=== PATIENT | male | born 1955 | race Caucasian/White ===

== ENCOUNTER → 2017-12-03 11:45 | Outpatient (CLI) | payer OTHER, SELFPAY ==
--- NOTE | 2017-12-03 11:49 | RAD_ITS ---
STUDY: X-RAY CHEST REASON FOR EXAM: Male, 62 years old. Dyspnea. One-week history of bone difficulty breathing. TECHNIQUE: PA and lateral views of the chest. COMPARISON: Comparison is made with prior study dated April 15, 2016. FINDINGS: Hyperinflation. There was evidence of a focal lingular infiltrate. Follow-up is recommended. There is no demonstrated pleural abnormality. Normal size heart. Normal mediastinum and ofelia. Normal visualized pulmonary arteries. Normal visualized aortic arch and descending thoracic aorta. There are degenerative changes of the visualized thoracic spine. Normal visualized ribs, clavicles, and shoulders. There is no demonstrated abnormality of the visualized soft tissue structures of the upper abdomen. RAD/Chest PA and Lateral IMPRESSION: Focal lingular infiltrate. Electronically Signed: Thomas Barrow MD at 12:12 EDT Tel [phone], Service support ,
== END ==
PROVIDERS: Family Provider Family Medicine; PCP Family Medicine; Visit Provider Family Medicine
DX: R91.8 Other nonspecific abnormal finding of lung field (principal); R06.02 Shortness of breath
CPT/HCPCS: 71046

== ENCOUNTER → 2018-02-04 14:26 | Outpatient (CLI) | payer OTHER, SELFPAY ==
--- NOTE | 2018-02-04 14:39 | BD_ITS ---
STUDY: DUAL ENERGY X-RAY ABSORPTIOMETRY / DXA REASON FOR EXAM: Male, 62 years old. History of myelodysplastic syndrome. Post bone marrow transplant. Steroid use. Loss of height. TECHNIQUE: Bone Mineral Density (BMD) measurements of lumbar spine and bilateral hips were obtained. COMPARISON: None. FINDINGS: Lumbar Spine (L1-L4): g/cm2 (1.400) / T-score (1.6) / Z-score (2.0) Findings are suggestive of normal bone density with a low fracture risk. Left Femur Total: g/cm2 (0.858) / T-score (-1.7) / Z-score (-1.2) Left Femoral Neck: g/cm2 (0.875) / T-score (-1.5) / Z-score (-0.5) Right Femur Total: g/cm2 (0.966) / T-score (-0.9) / Z-score (-0.4) Right Femoral Neck: g/cm2 (0.956) / T-score (-0.9) / Z-score (0.1) BD/Dexa Bone Density Study IMPRESSION: The patient is considered osteopenic as outlined below according to World Tomasz Organization (WHO) criteria with a moderate fracture risk. Reference Information: The T-score is the number of standard deviations above or below the standard which is normal for young adults at their peak bone mineral density. The World Health Organization (WHO) interprets the T-scores as follows: Above -1 Normal bone density Between -1 and -2.5 Osteopenia Equal to / or below -2.5 Osteoporosis As a practical clinical guideline, osteopenia may be graded as follows: Mild -1 through -1.5 Moderate -1.6 through -2.0 Severe -2.1 through -2.4 The Z-score is the number of standard deviations above or below age-matched controls. A Z-score of less than -1.5 would be considered abnormal. References: 1. NIH Osteoporosis and Related Bone Diseases http://www.osteo.org 2. International Society for Clinical Densitometry http://www.iscd.org 3. National Osteoporosis Foundation http://www.nof.org Electronically Signed: Thomas Barrow MD at 14:31 EDT Tel [phone], Service support ,
== END ==
PROVIDERS: Family Provider Family Medicine; PCP Family Medicine
DX: Z13.820 Encounter for screening for osteoporosis (principal); D46.9 Myelodysplastic syndrome, unspecified; R29.890 Loss of height; Z79.52 Long term (current) use of systemic steroids
CPT/HCPCS: 77080

== ENCOUNTER 2018-02-11 08:45 | Outpatient (RCR) | payer OTHER, SELFPAY ==
[2018-01-28 15:11] LABS: AST(SGOT) 18 U/L (15-37); Alanine Aminotransfer ALT/SGPT 39 U/L (16-61); Albumin, Serum 3.3 g/dL (3.2-5.0); Alkaline Phosphatase 74 U/L (45-117); Anion Gap 10 (5-15); BUN 33 mg/dL (7-18); BUN/Creat Ratio 26.4 RATIO (10-20); Bilirubin, Direct 0.09 mg/dL (0.00-0.30); Calcium,Total 8.8 mg/dL (8.5-10.1); Chloride 106 mmol/L (98-107); Creatinine, Serum 1.25 mg/dL (0.70-1.30); EST Glomerular Filtration Rate 62 mL/min (>60); Est Glom Filt Rate - Afr Amer 75 mL/min (>60); Globulin 2.4 g/dL (2.2-4.2); Glucose 190 mg/dL (74-106); Potassium 4.9 mmol/L (3.5-5.1); Protein, Total 5.7 g/dL (6.4-8.2); Sodium Level 139 mmol/L (136-145)
[2018-01-28 15:15] LABS: Absolute Neutrophil Count 5.3 X10^3/uL (2.0-7.7); Basophil# 0.01 X10^3/uL; Basophil% 0.2 % (0-1); Eosinophil# 0.01 X10^3/uL; Eosinophils% 0.2 % (0-5); Hematocrit 34.4 % (40-54); Hemoglobin 11.3 g/dl (13.0-16.5); Lymphocyte % 8.1 % (19-41); Mean Corp Hgb Conc 32.8 g/gl (32-36); Mean Corpuscular Hgb 33.6 pg (27.0-32.0); Mean Corpuscular Volume 102.4 fL (80-94); Monocyte# 0.36 X10^3/uL; Monocyte% 5.8 % (0-10); Neutrophil # 5.28 X10^3/uL (2.7-7.7); Neutrophil % 85.1 % (47-70); Platelet Count 61 K/mm3 (150-450); RBC Distribution Width CV 20.9 % (11.6-14.6); RBC Distribution Width SD 76.2 fl (35.1-43.9); Red Blood Count 3.36 M/mm3 (4.6-6.2); White Blood Count 6.2 K/mm3 (4.4-11.0)
[2018-01-28 15:16] LABS: Differential Indicated SCAN CRITERIA MET; POSITIVE COUNT NO; POSITIVE DIFFERENTIAL YES; POSITIVE MORPHOLOGY YES
[2018-01-28 16:03] LABS: Anisocytosis 2+; Macrocytosis 2+; Platelet Estimate MOD DEC (ADEQ); Toxic Granulation RARE
[2018-01-31 08:50] LABS: Tacrolimus (FK506) 4.5 ng/mL (2.0-20.0)
[2018-02-04 09:58] LABS: AST(SGOT) 15 U/L (15-37); Alanine Aminotransfer ALT/SGPT 28 U/L (16-61); Albumin, Serum 3.1 g/dL (3.2-5.0); Alkaline Phosphatase 60 U/L (45-117); Anion Gap 9 (5-15); BUN 23 mg/dL (7-18); BUN/Creat Ratio 20.2 RATIO (10-20); Bilirubin, Direct 0.12 mg/dL (0.00-0.30); Calcium,Total 8.5 mg/dL (8.5-10.1); Chloride 108 mmol/L (98-107); Creatinine, Serum 1.14 mg/dL (0.70-1.30); EST Glomerular Filtration Rate 69 mL/min (>60); Est Glom Filt Rate - Afr Amer 84 mL/min (>60); Globulin 2.1 g/dL (2.2-4.2); Glucose 166 mg/dL (74-106); Magnesium 1.7 mg/dL (1.6-2.6); Potassium 4.2 mmol/L (3.5-5.1); Protein, Total 5.2 g/dL (6.4-8.2); Sodium Level 141 mmol/L (136-145)
[2018-02-04 10:00] LABS: Absolute Lymphocyte Count 1.01 X10^3/ul (0.83-4.51); Absolute Neutrophil Count 6.8 X10^3/uL (2.0-7.7); Eosinophil# 0.05 X10^3/uL; Eosinophils% 0.6 % (0-5); Hematocrit 34.4 % (40-54); Hemoglobin 11.2 g/dl (13.0-16.5); Lymphocyte # 1.01 X10^3/ul (4.0); Lymphocyte % 12.2 % (19-41); Mean Corp Hgb Conc 32.6 g/gl (32-36); Mean Corpuscular Hgb 34.1 pg (27.0-32.0); Mean Corpuscular Volume 104.9 fL (80-94); Mean Platelet Vol. 9.4 fl (6.2-12.0); Monocyte# 0.47 X10^3/uL; Monocyte% 5.7 % (0-10); Neutrophil # 6.75 X10^3/uL (2.7-7.7); Neutrophil % 81.3 % (47-70); Platelet Count 62 K/mm3 (150-450); RBC Distribution Width CV 22.2 % (11.6-14.6); RBC Distribution Width SD 82.3 fl (35.1-43.9); Red Blood Count 3.28 M/mm3 (4.6-6.2); White Blood Count 8.3 K/mm3 (4.4-11.0)
[2018-02-04 10:02] LABS: Differential Indicated SCAN CRITERIA MET; POSITIVE COUNT NO; POSITIVE DIFFERENTIAL NO; POSITIVE MORPHOLOGY YES
[2018-02-07 13:23] LABS: Tacrolimus (FK506) 4.1 ng/mL (2.0-20.0)
[2018-02-11 09:05] LABS: Absolute Lymphocyte Count 1.04 X10^3/ul (0.83-4.51); Absolute Neutrophil Count 4.4 X10^3/uL (2.0-7.7); Eosinophil# 0.07 X10^3/uL; Eosinophils% 1.2 % (0-5); Hematocrit 34.1 % (40-54); Hemoglobin 11.2 g/dl (13.0-16.5); Lymphocyte # 1.04 X10^3/ul (4.0); Lymphocyte % 17.7 % (19-41); Mean Corp Hgb Conc 32.8 g/gl (32-36); Mean Corpuscular Hgb 34.8 pg (27.0-32.0); Mean Corpuscular Volume 105.9 fL (80-94); Mean Platelet Vol. 9.3 fl (6.2-12.0); Monocyte# 0.38 X10^3/uL; Monocyte% 6.5 % (0-10); Neutrophil # 4.35 X10^3/uL (2.7-7.7); Neutrophil % 74.3 % (47-70); Platelet Count 98 K/mm3 (150-450); RBC Distribution Width CV 21.6 % (11.6-14.6); RBC Distribution Width SD 82.4 fl (35.1-43.9); Red Blood Count 3.22 M/mm3 (4.6-6.2); White Blood Count 5.9 K/mm3 (4.4-11.0)
[2018-02-11 09:07] LABS: Differential Indicated SCAN CRITERIA MET; POSITIVE COUNT NO; POSITIVE DIFFERENTIAL NO; POSITIVE MORPHOLOGY YES
[2018-02-11 09:17] LABS: AST(SGOT) 14 U/L (15-37); Alanine Aminotransfer ALT/SGPT 27 U/L (16-61); Albumin, Serum 3.1 g/dL (3.2-5.0); Alkaline Phosphatase 58 U/L (45-117); Anion Gap 9 (5-15); BUN 24 mg/dL (7-18); BUN/Creat Ratio 18.5 RATIO (10-20); Bilirubin, Direct 0.08 mg/dL (0.00-0.30); Calcium,Total 8.8 mg/dL (8.5-10.1); Chloride 108 mmol/L (98-107); EST Glomerular Filtration Rate 60 mL/min (>60); Est Glom Filt Rate - Afr Amer 72 mL/min (>60); Globulin 2.6 g/dL (2.2-4.2); Glucose 138 mg/dL (74-106); Magnesium 1.7 mg/dL (1.6-2.6); Potassium 4.1 mmol/L (3.5-5.1); Protein, Total 5.7 g/dL (6.4-8.2); Sodium Level 142 mmol/L (136-145)
[2018-02-14 08:11] LABS: Tacrolimus (FK506) 5.2 ng/mL (2.0-20.0)
== END 2018-02-16 23:59 ==
LOC: PAVLAB 08:45
PROVIDERS: Family Provider Family Medicine; PCP Family Medicine
DX: Z94.81 Bone marrow transplant status (principal)
CPT/HCPCS: 36415; 80048; 80076; 80197; 83735; 85025

== ENCOUNTER 2018-02-22 18:26 | Inpatient (IN) | payer OTHER, SELFPAY ==
[2018-02-22] VITALS (8 sets, daily range): BP systolic 98–132; BP diastolic 64–87; PULSE 96–114; RESP 16–24; TEMP 37.3–39.1; O2SAT 93–97; BMI 25.6; BMI 25.4
--- NOTE | 2018-02-22 18:57 | RAD_ITS ---
STUDY: X-RAY CHEST REASON FOR EXAM: Male, 62 years old. Shortness of breath, fever TECHNIQUE: Frontal and lateral views of the chest were obtained. COMPARISON: December 03, 2017 FINDINGS: The lungs are adequately aerated. There are asymmetric patchy opacities in the left lung base. There is no demonstrated pleural abnormality. The cardiac silhouette is normal in size. The mediastinum and hilar regions are unremarkable. Normal visualized pulmonary arteries. Normal visualized aortic arch and descending thoracic aorta. There are diffuse degenerative changes of the visualized spine. There is AC joint separation on the right. There is probable prior surgical excision of the distal left clavicle. There is no demonstrated abnormality of the visualized upper abdomen. RAD/Chest PA and Lateral IMPRESSION: Focal consolidation cannot be excluded in the left lung base. There is no pleural effusion. Electronically Signed: Marisol Liu MD at 19:56 EDT Tel Direct: [phone], Service support ,
--- NOTE | 2018-02-22 18:57 | EKG12_ITS ---
Test Reason : FEVER Blood Pressure : / mmHG Vent. Rate : 105 BPM Atrial Rate : 105 BPM P-R Int : 134 ms QRS Dur : 084 ms QT Int : 318 ms P-R-T Axes : 054 -43 032 degrees QTc Int : 420 ms Sinus tachycardia Left axis deviation Abnormal ECG Confirmed by RAMONA SWEET, MARIA ([id number]), supervising film or videotape editor STORMY RIZZO ([id number]) on 02/24/2018 3:10:55 PM Referred By: IVDHYA Confirmed By:MARIA GREENE MD
[2018-02-22 19:30] LABS: International Normalized Ratio 1.1; Partial Thromboplast Time 26.7 Seconds (24.1-36.2); Prothrombin Time (Protime)PT. 13.9 SECONDS (11.7-14.9)
[2018-02-22 19:38] LABS: Absolute Lymphocyte Count 0.99 X10^3/ul (0.83-4.51); Absolute Neutrophil Count 4.7 X10^3/uL (2.0-7.7); Differential Indicated SCAN CRITERIA MET; Eosinophil# 0.01 X10^3/uL; Eosinophils% 0.2 % (0-5); Hematocrit 34.5 % (40-54); Hemoglobin 11.5 g/dl (13.0-16.5); Lymphocyte # 0.99 X10^3/ul (4.0); Lymphocyte % 16.8 % (19-41); Mean Corp Hgb Conc 33.3 g/gl (32-36); Mean Corpuscular Hgb 35.3 pg (27.0-32.0); Mean Corpuscular Volume 105.8 fL (80-94); Monocyte# 0.24 X10^3/uL; Monocyte% 4.1 % (0-10); Neutrophil # 4.66 X10^3/uL (2.7-7.7); Neutrophil % 78.9 % (47-70); POSITIVE COUNT NO; POSITIVE DIFFERENTIAL NO; POSITIVE MORPHOLOGY YES; Platelet Count 110 K/mm3 (150-450); RBC Distribution Width CV 20.2 % (11.6-14.6); RBC Distribution Width SD 76.8 fl (35.1-43.9); Red Blood Count 3.26 M/mm3 (4.6-6.2); White Blood Count 5.9 K/mm3 (4.4-11.0)
[2018-02-22 19:44] LABS: BUN 22 mg/dL (7-18); Creatinine, Serum 1.27 mg/dL (0.70-1.30); Estimated Creatinine Clearance 69.03 ml/min; Glucose 116 mg/dL (74-106)
[2018-02-22 19:45] LABS: ALB/GLOB Ratio 1.4 RATIO (0.9-2.4); AST(SGOT) 19 U/L (15-37); Alanine Aminotransfer ALT/SGPT 25 U/L (16-61); Albumin, Serum 3.5 g/dL (3.2-5.0); Alkaline Phosphatase 55 U/L (45-117); Anion Gap 8 (5-15); BUN/Creat Ratio 17.3 RATIO (10-20); Calcium,Total 8.7 mg/dL (8.5-10.1); Chloride 103 mmol/L (98-107); EST Glomerular Filtration Rate 61 mL/min (>60); Est Glom Filt Rate - Afr Amer 74 mL/min (>60); Globulin 2.5 g/dL (2.2-4.2); Potassium 4.2 mmol/L (3.5-5.1); Sodium Level 137 mmol/L (136-145)
[2018-02-22 19:46] LABS: Lactic Acid 1.2 mmol/L (0.4-2.0)
[2018-02-22 20:25] LABS: Differential Comment SCANNED
[2018-02-22 20:31] LABS: Bacteria 0 SEEN /hpf (None Seen); Squamous Epithelial Cells - UA 0 SEEN /hpf (0-5)
[2018-02-22 20:32] LABS: Color, Urine Yellow (Yellow); Glucose, Dipstick Normal (Normal); Ketone-Dipstick Negative (Negative); Leukocyte Esterase-Dipstick 25 /ul (Negative); Nitrite-Dipstick Negative (Negative); Occult Blood-Urine 10 /ul (Negative); Protein-Dipstick 15 mg/dl (Negative); Specific Gravity, Urine 1.015 (1.002-1.030); Urine Bilirubin Dipstick Negative (Negative); Urine Clarity Clear (Clear); Urine Urobilinogen Normal (Normal); Urine pH 6.5 (5.0 - 8.0)
[2018-02-22 20:38] LABS: Mucous, Urine 1+ /hpf (<or=2+); Red Blood Cells-Urine 0-5 SEEN /hpf (0-5); White Blood Cells 0-5 SEEN /hpf (0-5)
[2018-02-22] MEDS: Acetaminophen 325 MG Tablet 650 MG PO (21:08)
[2018-02-22] MEDS: levoFLOXacin IV 750 MG/150 ML BAG 100 MG IV (21:08)
--- NOTE | 2018-02-22 21:11 | ED.DCSUM_ITS ---
- ER Visit Summary Date of Service: 02/22/18 Chief Complaint: Fever and chills History of Present Illness: The patient is a 62 M who is status post bone marrow transplant June 2017 at [facility] presents with cough, fever and shaking chills. Patient states he was diagnosed with idiopathic pneumonia December 09, 2017. He denies headache, visual, ocular auditory symptoms. He does complain of nasal congestion. He denies sore throat. He does report change in voice. He denies chest pain or palpitations. He denies orthostatic symptoms. He does report decreased p.o. intake and decreased urine output. He denies leg pain, swelling discoloration. He denies vomiting or diarrhea. He denies dysuria, frequency, urgency or hematuria. Physical Examination: Vital signs noted. Heart rate 104 respiratory 24 pulse ox 93% on room air and initial temperature was 100.4. Repeat temperature is 102.4?F. Patient has a raspy voice. Pupils equal round reactive paradoxic muscle intact. Mild clear nasal drainage noted. TMs normal. Posterior pharynx reveals midline uvula with no erythema or exudate. Trachea is midline. There is no stridor. Heart is rapid and regular without murmur, gallop or rub. Lungs reveal abnormal breath sounds left lower lobe. There is no wheezing or rhonchi noted on expiration. Abdomen is soft and nontender. There is no CVA tenderness noted. Lower extremity exam reveals no swelling, discoloration or leg vein distention. There is no skin lesions or rash noted. Patient is alert and oriented ?3. Motor is 5 over 5. Sensory is intact. DTRs are symmetric with no clonus or Babinski sign. Cranial 2 through 12 are intact. Cerebellar testing is normal. Test Results: White count is normal with mild anemia. Electronic panel is unremarkable. Two-view chest x-ray interpreted by me and reviewed radiology report reveals possible infiltrate left lower lobe. Lactate was normal at 1.2. Emergency Department Course and Treatment: Since patient is status post bone marrow transplant with respiratory symptoms sepsis workup was undertaken to evaluate for pneumonia. Since lactate is normal he was treated for community acquired pneumonia/sepsis. Treatment Plan: IV antibiotics and further treatment in the hospital Disposition: [facility], 23-hour observation Impression: 1. Community acquired pneumonia, left lower lobe infiltrate 2. Sepsis 3. Status post bone marrow transplant 4. Chronic anemia nonspecified This note was generated with One[employer] dictation software. It may contain incorrect words, spelling, and punctuation that were not noted in review of the chart prior to signing ED Disposition - Plan for ED Patient: Chief Complaint: Fever Referrals: Zaki Sears MD [Primary Care Provider] -
--- NOTE | 2018-02-22 21:33 | PCM.HP.STD ---
Problem List (1) Community acquired pneumonia Status: Acute (2) MDS (myelodysplastic syndrome) Status: Acute History of Present Illness Date of Admission: 02/22/18 Chief Complaint: fever and chills The patient is a 62 year old M with a significant history of MDS status post bone transplant and on antirejection medication who was diagnosed and treated for idiopathic pneumonia at [facility] in November 2017 and on chronic steroid use who presented with a 2-day history of low-grade fever and chills. Associated with symptoms is malaise; lethargy; rhinorrhea and mild sore throat. He denies shortness of breath at rest. As part of his rehabilitation from pneumonia he has a routine of walking to his basement and back. He reports mild dyspnea on exertion when he awoke from his basement and back; but this has not changed. He has a clear nose at discharge. Although his sputum is productive he ends up swallowing the sputum. He takes prednisone 20 mg every other day. The last day he took his prednisone was a day before the admission. Reportedly his steroid taper supposed and on 02/26/2018. He is on daily tacrolimus dose. Because of risk of infection he is on chronic acyclovir, Cresemba and Bactrim. At emergency department patient was noted to have a temperature of 102.4 with tachycardia and tachypnea. Past Medical History Medical History: Medical History (Last Updated 02/22/18 @ 23:19 by Yuan Bear MD) MDS (myelodysplastic syndrome) D46.9 Allergies Penicillins Adverse Reaction (Unknown, Verified 02/22/18 18:27) Other states had blood from bowel after pcn Home Medications: Ambulatory Orders Medication Instructions Recorded Acyclovir 800 mg PO DAILY 02/22/18 Calcium Citrate 950 mg PO BID 02/22/18 Cholecalciferol (Vitamin D3) 2,000 unit PO DAILY 02/22/18 [Vitamin D3] Famotidine 20 mg PO BID 02/22/18 Isavuconazonium Sulfate [Cresemba] 186 mg PO DAILY 02/22/18 Prednisone 20 mg PO QODAY 02/22/18 Sulfamethoxazole/Trimethoprim 1 each PO BID 02/22/18 [Sulfamethoxazole-Tmp Ds Tablet] Tacrolimus [Envarsus Xr] 2 mg PO BID 02/22/18 Surgical History: - - Three left knee surgeries. Lives: Spouse/ Significant Other Smoking Status: Never smoker Alcohol: Occasional - *Family History Maternal Family History: Family History (Last Updated 02/22/18 @ 23:21 by Yuan Bear MD) Father Emphysema lung Sister Cancer Review of Systems Constitutional: Reports: Chills, Fever, Weight Change - Gained about 7 pounds in 5 weeks. HEENT: Reports: Sinus Drainage, Sore Throat. Denies: Dysphasia, Head Aches Cardiovascular: Denies: Chest Pain, Palpitations Respiratory: Reports: Cough, Shortness of breath upon exertion, Sputum production. Denies: Shortness of breath at rest Gastrointestinal: Denies: Abdominal Pain, Nausea, Vomiting Genitourinary: Denies: Dysuria Musculoskeletal: Denies: Joint Pain, Joint Tenderness Skin: Denies: Rash, Wounds Neurological: Denies: Numbness, Tingling, Focal weakness Psychiatric: Denies: Anxiety, Depression, Homicidal Ideations, Suicidal Ideations Hematologic/ Lymphatic: Denies: Easy Bruising, Easy Bleeding VTE Information - Inpt Only VTE Present on Admission: No VTE Mechan Device Prophylaxis: None VTE Pharm Prophylaxis ordered?: Yes Patient Problems: Active and Suspected Problems (Last Updated 02/22/18 @ 23:19 by Yuan Bear MD) Community acquired pneumonia (Acute) - Physical Exam General: Alert, Oriented x3, Cooperative, - - Non toxic looking HEENT: Atraumatic, PERRLA, EOMI, Normocephalic Neck: Supple, No JVD, Negative Carotid Bruits Lungs: Normal air movement, Diminished - Left lower lung. Clear in all other Cardiovascular: Regular rate, No murmurs Abdomen: Bowel Sounds Present, Soft, Non Tender Extremities: No edema, Capillary Refill Less than 3 Seconds, - - Right winged scapula - Patient attributes to history of long thoracic nerve injury Skin: No rashes, No breakdown Musculoskeletal: No Tenderness to Palpation of Joints or Extremities Neurological: Cranial nerves II-XII grossly intact Psych/Mental Status: Normal Affect, Appropriate Vital Signs Temp Pulse Resp BP Pulse Ox 102.4 F H 104 H 24 H 128/85 H 93 02/22/18 20:48 02/22/18 21:04 02/22/18 21:04 02/22/18 21:04 02/22/18 21:04 Oxygen Delivery Method Room Air Weight: 88 kg Body Mass Index (BMI) 25.6 Laboratory Tests Past 24 Hrs 02/22/18 02/22/18 02/22/18 19:15 19:15 19:15 WBC 5.9 RBC 3.26 L Hgb 11.5 L Hct 34.5 L MCV 105.8 H MCH 35.3 H MCHC 33.3 RDW 20.2 H RDW Differential 76.8 H Plt Count 110 L MPV 10.0 Immature Gran % (Auto) 0.000 Neut % (Auto) 78.9 H Lymph % (Auto) 16.8 L [place] % (Auto) 4.1 Eos % (Auto) 0.2 Baso % (Auto) 0.0 Absolute Neuts (auto) 4.7 Absolute Lymphs (auto) 0.99 Total Counted Not Reportable Differential Comment SCANNED PT 13.9 INR 1.1 APTT 26.7 Sodium 137 Potassium 4.2 Chloride 103 Carbon Dioxide 26.0 Anion Gap 8 BUN 22 H Creatinine 1.27 Estim Creat Clear Calc 69.03 Est GFR (MDRD) Af Amer 74 Est GFR (MDRD) Non-Af 61 BUN/Creatinine Ratio 17.3 Glucose 116 H Lactic Acid Calcium 8.7 Total Bilirubin 0.40 AST 19 ALT 25 Alkaline Phosphatase 55 Total Protein 6.0 L Albumin 3.5 Globulin 2.5 Albumin/Globulin Ratio 1.4 Urine Color Urine Clarity Urine pH Ur Specific [place] Urine Protein Urine Glucose (UA) Urine Ketones Urine Occult Blood Urine Nitrite Urine Bilirubin Urine Urobilinogen Ur Leukocyte Esterase Urine RBC Urine WBC Ur Squamous Epith Cells Urine Bacteria Urine Mucus 02/22/18 02/22/18 19:15 20:25 WBC RBC Hgb Hct MCV MCH MCHC RDW RDW Differential Plt Count MPV Immature Gran % (Auto) Neut % (Auto) Lymph % (Auto) [place] % (Auto) Eos % (Auto) Baso % (Auto) Absolute Neuts (auto) Absolute Lymphs (auto) Total Counted Differential Comment PT INR APTT Sodium Potassium Chloride Carbon Dioxide Anion Gap BUN Creatinine Estim Creat Clear Calc Est GFR (MDRD) Af Amer Est GFR (MDRD) Non-Af BUN/Creatinine Ratio Glucose Lactic Acid 1.2 Calcium Total Bilirubin AST ALT Alkaline Phosphatase Total Protein Albumin Globulin Albumin/Globulin Ratio Urine Color Yellow Urine Clarity Clear Urine pH 6.5 Ur Specific [place] 1.015 Urine Protein 15 H Urine Glucose (UA) Normal Urine Ketones Negative Urine Occult Blood 10 H Urine Nitrite Negative Urine Bilirubin Negative Urine Urobilinogen Normal Ur Leukocyte Esterase 25 H Urine RBC 0-5 SEEN Urine WBC 0-5 SEEN Ur Squamous Epith Cells 0 SEEN Urine Bacteria 0 SEEN Urine Mucus 1+ Assessment/Plan All Active Problems (Last Updated 02/22/18 @ 23:19 by Yuan Bear MD) MDS (myelodysplastic syndrome) (Acute) Subconjunctival bleed (Acute) Community acquired pneumonia (Acute) The patient is a 62 year old M with a significant history of MDS status post bone transplant and on antirejection medication who was diagnosed and treated for idiopathic pneumonia at [facility] in November 2017 and on chronic steroid use who presented with a 2-day history of low-grade fever and chills; and found to have high-grade fever; radiographic evidence of pneumonia; and with SIRS criteria. Sepsis likely due to pneumonia. Patient meets SIRS criteria with tachycardia; tachypnea and fever. Lactic acid was unremarkable. Blood culture x2 was obtained at emergency department. Urinalysis shows some occult blood and leukocyte esterase; but not impressive for infection. Chest x-ray was interpreted as focal consolidation cannot be excluded in the left lung base. There is no pleural effusion. Independent review of chest x-ray shows a bilateral infiltrate; probable interstitial pneumonia Patient received Levaquin and Tylenol at emergency department. We will start patient on azithromycin and ceftriaxone. Gentle NSS hydration Tylenol for fever. Legionella antigen and Streptococcus pneumonia antigen ordered. Mycoplasma pneumonia antibody ordered Influenza and comprehensive respiratory pathogen panel ordered. Flonase ordered for rhinorrhea Due to recurring pneumonia the pulmonary has been consulted. Trend CBC and BMP. MDS status post bone marrow transplant Tacrolimus continued Acyclovir, Cresemba and Bactrim continued. Continue prednisone 20 mg every other day. Next dose 02/23/2018 Oncology consulted. Microscopic hematuria Follow up outpatient for repeat urinalysis. GERD Continue Pepcid DVT prophylaxis Subcutaneous Lovenox. Code Visit OBSV E&M: [id number] Initial observation care L3
[2018-02-23] MEDS: Ceftriaxone 1 GM/50 ML BAG IV (00:10)
[2018-02-23] MEDS: Tacrolimus Anhydrous 1 MG Capsule 2 MG PO (00:10)
[2018-02-23] MEDS: Calcium Carbonate 500 MG Tablet PO (00:11)
[2018-02-23] MEDS: guaiFENesin 1,200 MG Tablet 1200 MG PO (00:11)
[2018-02-23] MEDS: 0.9% Normal Saline 1,000 ML 75 ML IV (00:12)
[2018-02-23] MEDS: Famotidine 20 MG Tablet PO (00:12)
[2018-02-23 03:14] LABS: M R Staph aureus DNA By PCR Negative (Negative); Probe Check PASS; Specimen Processing Control PASS
[2018-02-23 06:09] VITALS: BP 111/76; PULSE 78; RESP 18; TEMP 37.1; O2SAT 96
[2018-02-23 06:47] VITALS: O2SAT 92
[2018-02-23 06:59] LABS: Absolute Lymphocyte Count 0.84 X10^3/ul (0.83-4.51); Absolute Neutrophil Count 2.4 X10^3/uL (2.0-7.7); Basophil# 0.01 X10^3/uL; Basophil% 0.3 % (0-1); Eosinophil# 0.01 X10^3/uL; Eosinophils% 0.3 % (0-5); Hematocrit 32.1 % (40-54); Hemoglobin 10.7 g/dl (13.0-16.5); Lymphocyte # 0.84 X10^3/ul (4.0); Lymphocyte % 21.9 % (19-41); Mean Corp Hgb Conc 33.3 g/gl (32-36); Mean Corpuscular Hgb 35.3 pg (27.0-32.0); Mean Corpuscular Volume 105.9 fL (80-94); Mean Platelet Vol. 9.5 fl (6.2-12.0); Monocyte# 0.54 X10^3/uL; Monocyte% 14.1 % (0-10); Neutrophil # 2.44 X10^3/uL (2.7-7.7); Neutrophil % 63.4 % (47-70); Platelet Count 101 K/mm3 (150-450); RBC Distribution Width CV 20.2 % (11.6-14.6); RBC Distribution Width SD 76.5 fl (35.1-43.9); Red Blood Count 3.03 M/mm3 (4.6-6.2); White Blood Count 3.8 K/mm3 (4.4-11.0)
[2018-02-23 07:00] LABS: Differential Indicated SCAN CRITERIA MET; POSITIVE COUNT NO; POSITIVE DIFFERENTIAL NO; POSITIVE MORPHOLOGY YES
[2018-02-23 07:07] LABS: Anion Gap 8 (5-15); BUN 19 mg/dL (7-18); BUN/Creat Ratio 17.3 RATIO (10-20); Calcium,Total 8.2 mg/dL (8.5-10.1); Chloride 105 mmol/L (98-107); EST Glomerular Filtration Rate 72 mL/min (>60); Est Glom Filt Rate - Afr Amer 87 mL/min (>60); Glucose 103 mg/dL (74-106); Magnesium 1.8 mg/dL (1.6-2.6); Potassium 3.9 mmol/L (3.5-5.1); Sodium Level 139 mmol/L (136-145)
[2018-02-23 07:11] LABS: Differential Comment SCANNED; Macrocytosis 3+
--- NOTE | 2018-02-23 07:17 | PCA ---
Addendum entered by Nathan Pastor 02/23/18 08:10: Received medical records from [facility]. Placed records on chart; informed primary RN. Original Note: Faxed signed release of medical records to the [facility] -- Medical Records: [phone] Medical Records /[phone] Note left for Saturday placement secretary to follow up if records not received before then.
--- NOTE | 2018-02-23 08:28 | PCM.CONS.GEN ---
Reason for Consult Date of Consultation: 02/23/18 Reason for Consultation: Pneumonia History of Present Illness: The patient is a 62-year-old male, with a history as outlined below, who presented to the emergency department on February 22 with complaints of cough, fever and chills. The patient has a history of myelodysplastic syndrome following bone marrow biopsy in July 2015. 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 He was admitted to the intensive care unit there in December for a short period of time with acute hypoxic respiratory failure. He did undergo a bronchoscopy at that time, with cultures noted to be negative. He was treated empirically with antibiotics and steroids and improved clinically. He states that over the last 2-3 days he has been experiencing generalized malaise and chills at home. Yesterday he did have a fever documented. This prompted his visit to the emergency department for evaluation. He currently denies the presence of shortness of breath. He reports a mild cough, but has been unable to produce any sputum. He also states that he has a follow-up appointment the [facility] tomorrow morning and is insistent that he is going to make that appointment. On presentation to the emergency department, the patient was noted to be febrile and tachycardic. However, he was hemodynamically stable and maintaining appropriate oxygen saturations on room air. Urinalysis was unimpressive for the presence of infection. Plain film chest x-ray revealed a possible consolidation in the left lung base. The patient was subsequently placed on antibiotics and admitted to the medical surgical floor for ongoing management. At the present time, the patient is afebrile and remains hemodynamically stable. Past Medical History Medical History: Medical History (Last Updated 02/22/18 @ 23:19 by Yuan Bear MD) MDS (myelodysplastic syndrome) D46.9 Allergies Penicillins Adverse Reaction (Unknown, Verified 02/22/18 18:27) Other states had blood from bowel after pcn Home Medications: Ambulatory Orders Medication Instructions Recorded Acyclovir 800 mg PO DAILY 02/22/18 Calcium Citrate 950 mg PO BID 02/22/18 Cholecalciferol (Vitamin D3) 2,000 unit PO DAILY 02/22/18 [Vitamin D3] Famotidine 20 mg PO BID 02/22/18 Isavuconazonium Sulfate [Cresemba] 372 mg PO DAILY 02/22/18 Magnesium 266 mg PO TID 02/22/18 Prednisone 20 mg PO QODAY 02/22/18 Sulfamethoxazole/Trimethoprim 1 each PO BID 02/22/18 [Sulfamethoxazole-Tmp Ds Tablet] Tacrolimus [Envarsus Xr] 2 mg PO BID 02/22/18 Levofloxacin [Levaquin] 750 mg PO DAILY #7 tablet 02/23/18 Surgical History: - - Three left knee surgeries. Lives: Spouse/ Significant Other Smoking Status: Never smoker Alcohol: Occasional - *Family History Maternal Family History: Family History (Last Updated 02/22/18 @ 23:21 by Yuan Bear MD) Father Emphysema lung Sister Cancer Review of Systems Constitutional: Reports: Chills, Fever Eyes: Denies: Blurred vision, Double vision HEENT: Denies: Head Aches, Sinus Congestion, Sinus Drainage Cardiovascular: Denies: Chest Pain, Palpitations Respiratory: Reports: Cough. Denies: Sputum production Gastrointestinal: Denies: Abdominal Pain, Nausea, Vomiting Genitourinary: Denies: Dysuria Musculoskeletal: Denies: Joint Pain, Joint Tenderness Skin: Denies: Rash, Wounds Neurological: Denies: Numbness, Tingling, Focal weakness Psychiatric: Denies: Anxiety, Depression, Homicidal Ideations, Suicidal Ideations Hematologic/ Lymphatic: Reports: Anemia Patient Problems: Active and Suspected Problems (Last Updated 02/22/18 @ 23:19 by Yuan Bear MD) Rhinovirus (Acute) Objective: The patient's most recent lab work, culture data and imaging studies have all been personally reviewed. Rapid influenza screen was negative. Strep and urine Legionella antigens were both negative. Blood and urine cultures are pending. Respiratory viral panel is pending. - Physical Exam General: Alert, Oriented x3, Cooperative, - - Sitting in bedside recliner HEENT: Atraumatic, PERRLA, Normocephalic Oral: No Gingival or Mucosal Lesions/ Ulcerations Neck: Supple, No Nodes, Trachea Midline Lungs: Clear to auscultation, Normal air movement, No rhonchi, No wheeze, No rales Cardiovascular: Regular rate, Regular Rhythm, Normal S1, Normal S2, No murmurs Abdomen: Bowel Sounds Present, Soft, Non Tender, Non-Distended Extremities: No clubbing, No cyanosis, No edema Skin: No breakdown Musculoskeletal: No Tenderness to Palpation of Joints or Extremities Lymphatic: No Cervical, Supraclavicular, or Inguinal Adenopathy Neurological: Cranial nerves II-XII grossly intact, Neuro grossly intact Psych/Mental Status: Alert and oriented to time, place, person, mood and affect Vital Signs Temp Pulse Resp BP Pulse Ox 98.7 F 78 18 111/76 92 02/23/18 06:09 02/23/18 06:09 02/23/18 06:09 02/23/18 06:09 02/23/18 06:47 Oxygen Delivery Method Room Air Weight: 192 lb 9.6 oz Body Mass Index (BMI) 25.4 Intake and Output for Last 24 Hours 02/21/18 02/22/18 02/23/18 23:59 23:59 23:59 Intake Total 1210.5 / 1210.5 Output Total 1800 / 1800 Balance -589.5 / -589.5 Microbiology Past 72 Hours 02/22/18 20:25 Legionella Antigen - Final Urine, Clean Catch 02/22/18 20:25 Streptococcus pneumoniae Antigen (M - Final Urine, Clean Catch 02/22/18 23:12 Influenza Types A,B Direct FA (AVEL) - Final Mucosa - Nose Laboratory Tests Past 24 Hrs 02/22/18 02/22/18 02/22/18 19:15 19:15 19:15 WBC 5.9 RBC 3.26 L Hgb 11.5 L Hct 34.5 L MCV 105.8 H MCH 35.3 H MCHC 33.3 RDW 20.2 H RDW Differential 76.8 H Plt Count 110 L MPV 10.0 Immature Gran % (Auto) 0.000 Neut % (Auto) 78.9 H Lymph % (Auto) 16.8 L [place] % (Auto) 4.1 Eos % (Auto) 0.2 Baso % (Auto) 0.0 Absolute Neuts (auto) 4.7 Absolute Lymphs (auto) 0.99 Total Counted Not Reportable Differential Comment SCANNED Macrocytosis PT 13.9 INR 1.1 APTT 26.7 Sodium 137 Potassium 4.2 Chloride 103 Carbon Dioxide 26.0 Anion Gap 8 BUN 22 H Creatinine 1.27 Estim Creat Clear Calc 69.03 Est GFR (MDRD) Af Amer 74 Est GFR (MDRD) Non-Af 61 BUN/Creatinine Ratio 17.3 Glucose 116 H Lactic Acid Calcium 8.7 Magnesium Total Bilirubin 0.40 AST 19 ALT 25 Alkaline Phosphatase 55 Total Protein 6.0 L Albumin 3.5 Globulin 2.5 Albumin/Globulin Ratio 1.4 Urine Color Urine Clarity Urine pH Ur Specific [place] Urine Protein Urine Glucose (UA) Urine Ketones Urine Occult Blood Urine Nitrite Urine Bilirubin Urine Urobilinogen Ur Leukocyte Esterase Urine RBC Urine WBC Ur Squamous Epith Cells Urine Bacteria Urine Mucus Mycoplasma pneumon IgG Mycoplasma pneumon IgM MRSA (PCR) 02/22/18 02/22/18 02/22/18 19:15 19:15 20:25 WBC RBC Hgb Hct MCV MCH MCHC RDW RDW Differential Plt Count MPV Immature Gran % (Auto) Neut % (Auto) Lymph % (Auto) [place] % (Auto) Eos % (Auto) Baso % (Auto) Absolute Neuts (auto) Absolute Lymphs (auto) Total Counted Differential Comment Macrocytosis PT INR APTT Sodium Potassium Chloride Carbon Dioxide Anion Gap BUN Creatinine Estim Creat Clear Calc Est GFR (MDRD) Af Amer Est GFR (MDRD) Non-Af BUN/Creatinine Ratio Glucose Lactic Acid 1.2 Calcium Magnesium Total Bilirubin AST ALT Alkaline Phosphatase Total Protein Albumin Globulin Albumin/Globulin Ratio Urine Color Yellow Urine Clarity Clear Urine pH 6.5 Ur Specific [place] 1.015 Urine Protein 15 H Urine Glucose (UA) Normal Urine Ketones Negative Urine Occult Blood 10 H Urine Nitrite Negative Urine Bilirubin Negative Urine Urobilinogen Normal Ur Leukocyte Esterase 25 H Urine RBC 0-5 SEEN Urine WBC 0-5 SEEN Ur Squamous Epith Cells 0 SEEN Urine Bacteria 0 SEEN Urine Mucus 1+ Mycoplasma pneumon IgG Pending Mycoplasma pneumon IgM Pending MRSA (PCR) 02/23/18 02/23/18 02/23/18 00:05 05:50 05:50 WBC 3.8 L RBC 3.03 L Hgb 10.7 L Hct 32.1 L MCV 105.9 H MCH 35.3 H MCHC 33.3 RDW 20.2 H RDW Differential 76.5 H Plt Count 101 L MPV 9.5 Immature Gran % (Auto) 0.000 Neut % (Auto) 63.4 Lymph % (Auto) 21.9 [place] % (Auto) 14.1 H Eos % (Auto) 0.3 Baso % (Auto) 0.3 Absolute Neuts (auto) 2.4 Absolute Lymphs (auto) 0.84 Total Counted Not Reportable Differential Comment SCANNED Macrocytosis 3+ PT INR APTT Sodium 139 Potassium 3.9 Chloride 105 Carbon Dioxide 26.0 Anion Gap 8 BUN 19 H Creatinine 1.10 Estim Creat Clear Calc 79.70 Est GFR (MDRD) Af Amer 87 Est GFR (MDRD) Non-Af 72 BUN/Creatinine Ratio 17.3 Glucose 103 Lactic Acid Calcium 8.2 L Magnesium 1.8 Total Bilirubin AST ALT Alkaline Phosphatase Total Protein Albumin Globulin Albumin/Globulin Ratio Urine Color Urine Clarity Urine pH Ur Specific [place] Urine Protein Urine Glucose (UA) Urine Ketones Urine Occult Blood Urine Nitrite Urine Bilirubin Urine Urobilinogen Ur Leukocyte Esterase Urine RBC Urine WBC Ur Squamous Epith Cells Urine Bacteria Urine Mucus Mycoplasma pneumon IgG Mycoplasma pneumon IgM MRSA (PCR) Negative Clinical Impression(s) from Imaging Studies Chest X-Ray 02/22/18 18:57 IMPRESSION: Focal consolidation cannot be excluded in the left lung base. There is no pleural effusion. Electronically Signed: Marisol Liu MD at 19:56 EDT Tel Direct: [phone], Service support , Assessment/Plan All Active Problems (Last Updated 02/22/18 @ 23:19 by Yuan Bear MD) Rhinovirus (Acute) MDS (myelodysplastic syndrome) (Acute) Subconjunctival bleed (Acute) Community acquired pneumonia (Acute) RECOMMENDATIONS: 1. Continue current supportive measures with gentle IV fluid hydration and empiric antibiotics 2. Consider obtaining CT chest without contrast for further clarification of the patient's questionable pulmonary infectious process. 3. Obtain respiratory viral panel. 4. Atypical pneumonia workup is pending. 5. Perform walking oximetry study prior to consideration for discharge. 6. Encourage incentive spirometer use IMPRESSIONS: 1. Fevers and chills The patient was initially admitted to the hospital with presumptive pneumonia, however, his plain film chest x-ray was personally reviewed and seems less than overwhelming for an acute infiltrative process. Regardless, the patient is on empiric antibiotics, pending finalized infectious workup. This may also have been a viral mediated process. A respiratory viral panel is still pending. If the patient does not feel improved by tomorrow, recommend obtaining noncontrasted chest CT. If he is insistent on being discharged, he could always be sent home on Levaquin with plans to follow-up at the [facility] as he intends to do. Recommend performing a walking oximetry study prior to consideration for discharge from the hospital. We will continue to follow if the patient remains in the hospital. 2. Myelodysplastic syndrome status post bone marrow transplantation Complicates care, management, recovery and prognosis. Continue baseline medications as ordered. The patient is currently hemodynamically stable. There is no need for stress dose steroids. This note was generated with Veezeon dictation software. It may contain incorrect words, spelling, and punctuation that were not noted in checking the note before signing. Code Visit Inpatient E&M: 83666 Init Hosp L3
[2018-02-23] MEDS: Piperacil/Tazobactam 3.375 GM/50 ML ML IV (10:12)
[2018-02-23 10:25] VITALS: O2SAT 95
[2018-02-23 10:31] VITALS: BP 104/73; PULSE 84; RESP 18; TEMP 37.1; O2SAT 95
--- NOTE | 2018-02-23 11:18 | DCINST_ITS ---
- Discharge Diagnoses Current Active Problems: Current Active and Chronic Problems (Last Updated 02/22/18 @ 23:19 by Yuan Bear MD) Community acquired pneumonia (Acute) You will use the following diet at home:: No restrictions Your food should be the consistency of: Regular Your liquids should be the consistency of: Regular/Thin Discharge Activity: Return to Normal Activity Allergies/Adverse Reactions: Allergies Penicillins Adverse Reaction (Unknown, Verified 02/22/18 18:27) Other states had blood from bowel after pcn Medications to take at Discharge Acyclovir 800 mg PO DAILY 02/22/18 Calcium Citrate 950 mg PO BID 02/22/18 Cholecalciferol (Vitamin D3) [Vitamin D3] 2,000 unit PO DAILY 02/22/18 Famotidine 20 mg PO BID 02/22/18 Isavuconazonium Sulfate [Cresemba] 372 mg PO DAILY 02/22/18 Magnesium 266 mg PO TID 02/22/18 Prednisone 20 mg PO QODAY 02/22/18 Sulfamethoxazole/Trimethoprim [Sulfamethoxazole-Tmp Ds Tablet] 1 each PO BID 02/22/18 Tacrolimus [Envarsus Xr] 2 mg PO BID 02/22/18 Levofloxacin [Levaquin] 750 mg PO DAILY #7 tablet 02/23/18 The following prescriptions were given: Levofloxacin [Levaquin] 750 mg PO DAILY #7 tablet Primary Care Physician: Zaki Sears MD [Primary Care Provider] - Please follow up with your Primary Care Physician in: 1-2 weeks Test Results: Test results from this visit will be discussed in further detail at your follow- up appointment, if applicable. Please Follow Up With: [facility] Transplant team - Keep current appointment When: Tomorrow Proposed Discharge Date: 02/23/18
[2018-02-23 12:57] VITALS: BP 102/64; PULSE 80; RESP 20; TEMP 37.2; O2SAT 97
--- NOTE | 2018-02-23 14:17 | PCM.DC.SUM ---
Discharge Date and Diagnosis - Problem List Patient Problems: Active and Suspected Problems (Last Updated 02/22/18 @ 23:19 by Yuan Bear MD) Rhinovirus (Acute) Date of Admission: 02/22/18 Date of Discharge: 02/23/18 - Primary Discharge Diagnosis Active and Suspected Problems (Last Updated 02/22/18 @ 23:19 by Yuan Bear MD) Rhinovirus (Acute) URI Pneumonia ruled out Immunocompromised state 2/2 MDS, bone marrow transplant, immune suppressants GERD microscopic hematuria Hospital Course and Treatment Imaging Results: RAD/Chest PA and Lateral IMPRESSION: Focal consolidation cannot be excluded in the left lung base. There is no pleural effusion. Consults: Pulm - [place] Operations: None Procedures: None Summary of Care Provided: Physical exam on day of discharge: General: Resting comfortably NAD Psych: A/Ox3 normal affect HEENT: PEARRLA AT NC Neck: Supple NT CV: RRR no m/t/r/g/h Resp: CTA Abd: [id number] Soft NT no guarding or rigidity Ext: DP2+= no edema Skin: W/D normal turgor Lymph/Heme: No active bleeding or adenopathy Neuro: CN2-12 intact Hospital course: The patient is a 62 year old M with a hx of MDS with hx bone marrow transplant on tacrolimus, chronic prednisone, antivirals, antibiotics, antifungals, who was recently admitted to the hospital in November for idiopathic pna, who presented to the ER with c/o fever and chills. He also had URI symptoms including runny nose and nonproductive cough. CXR was suspicious for pna. He was given levaquin, rocephin, and azithromycin and admitted to the med surg floor. Pulmonary medicine was consulted and did not feel that the CXR showed pna as it was unchanged from prior. He had no SOB or significant cough the next day and his fever resolved. Respiratory panel was positive for rhinovirus. He was felt stable for DC. He has an appointment the following with his transplant team. He was advised to keep this. He was placed on 7 days of oral levaquin to complete to ensure adequate treatment of any possible underlying bacterial URI. He was DC'd home instable condition. He was also advised to follow up with his PCP in 1-2 weeks. This patient was seen by Jose Gaytan PA-C under the supervision of Doctor Gilbert. [] Discharge Diet: No Restrictions Discharge Activity: Return to Normal Activity Home Medications: Medications to take at Discharge Acyclovir 800 mg PO DAILY 02/22/18 Calcium Citrate 950 mg PO BID 02/22/18 Cholecalciferol (Vitamin D3) [Vitamin D3] 2,000 unit PO DAILY 02/22/18 Famotidine 20 mg PO BID 02/22/18 Isavuconazonium Sulfate [Cresemba] 372 mg PO DAILY 02/22/18 Magnesium 266 mg PO TID 02/22/18 Prednisone 20 mg PO QODAY 02/22/18 Sulfamethoxazole/Trimethoprim [Sulfamethoxazole-Tmp Ds Tablet] 1 each PO BID 02/22/18 Tacrolimus [Envarsus Xr] 2 mg PO BID 02/22/18 Levofloxacin [Levaquin] 750 mg PO DAILY #7 tablet 02/23/18 Following Prescrptions Were Given to Patient: Levofloxacin [Levaquin] 750 mg PO DAILY #7 tablet Primary Care Physician: Zaki Sears MD [Primary Care Provider] - Please follow up with your Primary Care Physician in: 1-2 weeks Please Follow Up With: [facility]plant team - Keep current appointment When: Tomorrow Disposition: Home Minutes spent on discharge:: 35 Patient Condition:: Stable Medical Necessity - Tobacco Use Smoking Status: Never smoker Meaningful Use Info Meaningful Use Diagnoses (Choose all that apply): None applicable
[2018-02-24 09:06] LABS: Vitamin B12 492 pg/mL (211-911)
[2018-02-26 07:34] LABS: Mycoplasma Pneum AB IgG < 100 U/mL (0-99); Mycoplasma pneum. AB IgM < 770 U/mL (0-769)
== END 2018-02-23 13:09 | disposition home or self-care (01) | DRG 871 ==
LOC: ED 22:00 → MS3 22:06
PROVIDERS: Physician Assistant; Admitting Provider Hospitalist; Emergency Provider Emergency Medicine; Family Provider Family Medicine; PCP Family Medicine; Visit Provider Family Medicine
DX: A41.89 Other specified sepsis (principal); J15.9 Unspecified bacterial pneumonia; Z94.81 Bone marrow transplant status; J06.9 Acute upper respiratory infection, unspecified; B97.89 Other viral agents as the cause of diseases classified elsewhere; D46.9 Myelodysplastic syndrome, unspecified; Z79.899 Other long term (current) drug therapy; R31.29 Other microscopic hematuria; K21.9 Gastro-esophageal reflux disease without esophagitis
CPT/HCPCS: 36415; 71046; 80048; 80053; 81001; 82607; 82746; 83605; 83735; 85025; 85610; 85730; 86738; 87040; 87086; 87449; 87633; 87641; 87804; 93005; 94667; 94668; 97161; 97165; 99283; J7030; J7050; A4216

== ENCOUNTER 2018-03-17 08:00 | Outpatient (RCR) | payer OTHER, SELFPAY ==
--- NOTE | 2018-01-16 13:56 | HP.PTEVAL_ITS ---
Patient's Visit Information HOWIE LOVELACE is a 62 year old M referred to Physical Therapy by MANNY TOBIN with a diagnosis of pneumonia. Date of Evaluation: 01/16/18 Physical Therapist: Emmanuel Donato DPT, OC - Visit Plan Frequency: 3x /Week Duration: 4-6 Weeks Plan: immunosuppressed so please clean machines before adn after use. Fatiuges easily with lungs still recovering from pneumonia and still on prednisone. Slow progression and monitor closely cardio vascular. 3x/week for 4-6 weeks... 1. LE strength machines focus hip and ankles. 2. Balance focussing on steps , step over. 3. CV ex of Nustep and bike to bookend workout. 4. 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 - Subjective Subjective: Began with bone marrow trasnplant 06/26 in hospital for a month. hemoglobin stayed good and was active walking with IV pole. Was at [facility] in [place]. Was making good progress as he was riding bike trail 40 miles in 3 hours. Then he got pneumonia and admitted December 09. Released last Saturday after being in rehab one month. Was doing 3 laps unitl(24/mile) on 8 l/ min O2 with walker. Days later 8 laps with cane on 4l/min. 01/07 6 laps with no oxygen and biking on stationary bike 15 minutes. Got out 01/13. Was walking 1/2 mile and 20 minutes bike. Progressing nicely. Feels balance is still a little off and looking for endurance and strength after this condition. still on 45 mg prednisone fo rinflammation in lungs. Lungs are sounding better. To doctor tomorrow for bone marrow doctor f/u. No pain. sleeping well except for last night, a little tired today. Walking 15 -20 minutes at home inside around house. Basic ADLs are getting better. Stood and showered yesterday for the first time. Can stand well and sit well. Walks about 15 minutes before a resting due to lungs. Wants to get back to stretching in morning. Employed designing wireless systems in schools, mostly desk work. Can do this from home and has started it a little bit. May need to walk around schools for an hour. Hobbies including walking and bicycling and being out side in general. Steps are hard on the legs. - Objective SOB after steps requiring 2 minute rest, recovers quickly. L aCL gone for decades. posture is forward head and protracted scap,L scap wings. Walks I on firm surface but not alot of propulsion/push-off,w eakness evident in gluts and calves. Trasnfers are I without UE but extra time needed to get up from chair without UE due to weakness. Steps are reciprocal with one rail with obvious LE weakness. Really needs to pull with UE for safety. hip strength 3+/5 in flexion and abd and 3/5 ext. knee strength 4-/5. ankle strength 3+/5. Sensation LE WNL to gross ligth touch. reflexes 2/3 patella and achilles. UE AROM WFL, stiff with shoulder elevation at end range and stregnth at 4-/5 - Balance Scores Functional Gait Assessment Score: 25 % Disability: 16.6700 CATSIB Score (Max score 120 seconds): 102 - Goals Goal 1:: 30/30 FGA to diminish fall risk. Goal Time Frame: 4-6 Weeks Goal 2:: Steps without rail reciprocally Goal Time Frame: 4-6 Weeks Goal 3:: Walk without gait deviation Goal Time Frame: 4-6 Weeks Goal 4:: Pt feel 75% back to normal. Goal Time Frame: 4-6 Weeks - Rehabilitation Potential Physical Therapy Diagnosis: weakness after pneumonia Rehabilitation Potential: Good - Anticipated Interventions Patient/Client Instruction: Educate patient on: Condition, Plan of Care For the Purpose of:: To improve ability of physical actions for home/community/ work/leisure Therapeutic Exercise to Include: Strength training, Gait and locomotor training For the Purpose of:: To improve ability of physical actions for home/community/ work/leisure, To improve safety Thank you for the opportunity to evaluate your patient. For Medicare and Medicare HMO plans, please review the plan of care and approve it. It will need to be FAXED BACK to us at [phone] for Medicare purposes. Please let me know if there are questions or concerns regarding this plan of care. Physician Signature: Date:____
--- NOTE | 2018-02-17 12:27 | HP.PTREVAL ---
MANNY TOBIN, It has been my pleasure to treat HOWIE LOVELACE over the last 12 visits for pneumonia. Please see the progress note below for an update on the physical therapy plan of care! Subjective: Going well. will join as a member adn continue HEP and gym ex. Stronger and less winded. Sleeping reasonably well. Activities are pretty normal. Working half days and going well. Walked at [employer] 15 minutes adn just slightly winded. can do 1/8 mile with hill in 15 minutes. Steps improving and getting easier. Did them 4 x on one project over weekend, recovery time is much less. Was not pulling on railing. PT hernandez feels like wants to f/u in a month. Objective/Function: 140 HR after 0ne lap gait testing and steps. \Slight SOB after all testing but recovered quickly. Sidestep and crossover step without difficulty. Doing well and ready to try on own. Allred ee doctor next week. Plan Plan: f/u one month to check steps, one lap FGA and HR and progress ex if needed. Pt will continue on own for the next month and call if questions. Goals Goal 1:: 30/30 FGA to diminish fall risk. Goal Time Frame: 4-6 Weeks Goal Progress: Goal Met Goal 2:: Steps without rail reciprocally Goal Time Frame: 4-6 Weeks Goal Progress: Goal Met Goal 3:: Walk without gait deviation Goal Time Frame: 4-6 Weeks Goal Progress: Goal Met Goal 4:: Pt feel 75% back to normal. Goal Time Frame: 4-6 Weeks Goal Progress: Goal Met Goal 5:: Pt back to riding bike outside and full days at work. Goal Time Frame: 2-4 Weeks Goal Progress: NEW GOAL Anticipated Interventions Patient/Client Instruction: Educate patient on: Condition, Plan of Care For the Purpose of:: To improve ability of physical actions for home/community/work/leisure Therapeutic Exercise to Include: Strength training, Gait and locomotor training For the Purpose of:: To improve ability of physical actions for home/community/work/leisure, To improve safety Please do not hesitate to contact me at [phone] by phone or if you have questions or concerns regarding this new plan of care! Sincerely, Emmanuel Donato, ROSETTAT, OC
--- NOTE | 2018-03-17 08:24 | HP.PTREVAL ---
MANNY TOBIN, It has been my pleasure to treat HOWIE LOVELACE over the last 13 visits for pneumonia. Please see the progress note below for an update on the physical therapy plan of care! Subjective: Had a cold and missed workout for 2.5 weeks. Was on good workout at prior to beins sick. No pain. Sleeping normall pretty good. Not great last night. Working full go at office without issues. Home is going OK. T doctor in April. Objective/Function: FGa still perfect and steps reciprocal without rail. VOR walking is easy. one lap and FGA steps gives 120 HR. Looks healthier and not as tired today. Going the right way despite sickness. Plan Plan: patient is back where he was a month ago due to missing 3 weeks of workout with a cold. Will start up again this week and continue POC one month. Recheck outdoor bike subjectively and FGA, one lap, steps HR. Goals Goal 1:: 30/30 FGA to diminish fall risk. Goal Time Frame: 4-6 Weeks Goal Progress: Goal Met Goal 2:: Steps without rail reciprocally Goal Time Frame: 4-6 Weeks Goal Progress: Goal Met Goal 3:: Walk without gait deviation Goal Time Frame: 4-6 Weeks Goal Progress: Goal Met Goal 4:: Pt feel 75% back to normal. Goal Time Frame: 4-6 Weeks Goal Progress: Goal Met Goal 5:: Pt back to riding bike outside and full days at work. Goal Time Frame: 2-4 Weeks Goal Progress: work, not bike yet. Anticipated Interventions Patient/Client Instruction: Educate patient on: Condition, Plan of Care For the Purpose of:: To improve ability of physical actions for home/community/work/leisure Therapeutic Exercise to Include: Strength training, Gait and locomotor training For the Purpose of:: To improve ability of physical actions for home/community/work/leisure, To improve safety Please do not hesitate to contact me at [phone] by phone or if you have questions or concerns regarding this new plan of care! Sincerely, Emmanuel Donato, DPT, OC
--- NOTE | 2018-04-14 14:13 | HP.PTDCNRP_ITS ---
HP - Discharge Summary (1) - Patient Information HOWIE LOVELACE was seen in my office for initial evaluation on 01/16/18. The following Plan of Care was established for this patient: Initial Frequency: 3x /Week Initial Duration: 4-6 Weeks - Anticipated Interventions Patient/Client Instruction: Educate patient on: Condition, Plan of Care For the Purpose of:: To improve ability of physical actions for home/communit y/work/leisure Therapeutic Exercise to Include: Strength training, Gait and locomotor training For the Purpose of:: To improve ability of physical actions for home/community/work/leisure, To improve safety This patient was last seen in our office 03/17/18. Pertinent comments regarding their Physical therapy will appear below: Pt seen 13 visits and was doing well with independent workout after latest session. Was to f/u 2-3 weeks later but has called to cancel stating he is doing well i will discontinue at his request. At this point I will be discontinuing this patient from physical therapy. I would be happy to see this patient again in the future if found appropriate by the physician. Thank you! Emmanuel Donato, DPT, OC
== END 2018-03-17 19:00 | disposition home or self-care (01) ==
LOC: PT 08:00
PROVIDERS: Family Provider Family Medicine; PCP Family Medicine
DX: M62.81 Muscle weakness (generalized) (principal)
CPT/HCPCS: 97110; 97162; 97530

== ENCOUNTER → 2018-04-01 07:37 | Outpatient (CLI) | payer OTHER, SELFPAY ==
--- NOTE | 2018-04-01 11:38 | PFTCOMP_ITS ---
COMPLETE PULMONARY FUNCTION TEST INTERPRETATION Brief HPI: Patient is a 62 year old male, currently under the care of Dr. López, who presents to [facility] for complete pulmonary function tests secondary to diagnosis of bone marrow transplant. Respiratory therapist reports good effort and reproducible results. Interpretation: Forced expiration spirometry shows no large airways obstructive ventilatory defect with an FEV1 of 108% predicted. There is no significant bronchodilator response by strict ATS criteria. Spirograms are of good quality and plateau slowly, indicating slowly emptying areas of the lungs. The respiratory flow volume loop shows a normal pattern. Lung volumes by body plethysmography show a normal total lung capacity at 7.59 L, 103% predicted. All other lung volumes are within normal limits. Diffusion capacity by carbon monoxide is decreased at 60% predicted. The airway resistance is normal. No previous pulmonary function tests were available for review. Impression: Isolated reduction in diffusion capacity consistent with a possible pulmonary vascular disorder. Consider echocardiogram if not completed previously.
== END ==
PROVIDERS: Family Provider Family Medicine; PCP Family Medicine
DX: D46.9 Myelodysplastic syndrome, unspecified (principal)
CPT/HCPCS: 94060; 94726; 94729

== ENCOUNTER 2018-07-14 07:55 | Inpatient (IN) | payer OTHER, SELFPAY ==
[2018-07-14] VITALS (7 sets, daily range): BP systolic 105–112; BP diastolic 60–81; PULSE 84–94; RESP 16–18; TEMP 37.2–37.8; O2SAT 90–95; BMI 26.1; BMI 26.7
--- NOTE | 2018-07-14 08:21 | ED.DCSUM_ITS ---
- ER Visit Summary Date of Service: 07/14/18 Chief Complaint: Low-grade fever History of Present Illness: The patient is a 62 M history of myelodysplastic syndrome with a bone marrow transplant in June [address] [facility]. Patient is on immunosuppressive medications. For the last week since Saturday he has had a low-grade fever running between 99 and 101. Mild nausea. Loose stools. No vomiting. Minimal cough. Nonproductive. No sore throat or earaches. No abdominal pain. No dysuria. No skin rashes. Says he just feels overall tired and thought to be over this by now. Physical Examination: Well-appearing 62-year-old male. Vital signs are 99. He does not seem septic or toxic. He is in no distress. His initial blood pressure is 105/74. His pulse ox is 95% on room air no signs of hypoxia. HEENT exam normal. Normal posterior pharynx. Moist and pink. States he has been holding down plenty of fluids. TMs are normal. Neck nontender. No lymphadenopathy. Lungs clear to auscultation bilaterally. Heart regular rate and rhythm no murmur. Abdomen is soft and nontender. Normal bowel sounds no peritoneal signs. Patient is moving all 4 extremities. Nontender. Normal range of motion. Back nontender. Skin unremarkable without any signs of cellulitis or rashes. Neurologically is awake and alert with no focal motor deficits. Test Results: CBC shows a white count of 2.3. Hemoglobin 14. Platelets are constantly low his platelet count today is 112,000 which is along his baseline. Chemistries are normal. Creatinine 1.2. Liver enzymes unremarkable. UA normal. Lactic acid 1.0 blood cultures x2 pending. Chest x-ray 2 views appears to have density in the right lower lobe consistent with a right lower lobe pneumonia. Read both by myself and radiologist. I did compare this to prior x- rays. Emergency Department Course and Treatment: He will undergo a workup for low- grade fever on immunosuppressant meds. Repeat exam patient is doing well at 0 9:40 AM. He will be started on IV Zithromax and Rocephin for community-acquired right lower lobe pneumonia. And admitted. Treatment Plan: Hospitalist on page for admission Disposition: Admission Impression: Fever Right lower lobe pneumonia Immunocompromised due to bone marrow transplant History of myelodysplastic syndrome with neutropenia and thrombocytopenia This note was generated with Jeovany dictation software. It may contain incorrect words, spelling, and punctuation that were not noted in review of the chart prior to signing ED Disposition - Plan for ED Patient: Referrals: Zaki Sears MD [Primary Care Provider] -
[2018-07-14 08:49] LABS: Bacteria 0 SEEN /hpf (None Seen); Mucous, Urine 0 SEEN /hpf (<or=2+); Red Blood Cells-Urine 0 SEEN /hpf (0-5); Squamous Epithelial Cells - UA 0 SEEN /hpf (0-5)
[2018-07-14 08:56] LABS: Color, Urine Yellow (Yellow); Glucose, Dipstick Normal (Normal); Ketone-Dipstick 5 mg/dl (Negative); Leukocyte Esterase-Dipstick 25 /ul (Negative); Nitrite-Dipstick Negative (Negative); Occult Blood-Urine 10 /ul (Negative); Protein-Dipstick 30 mg/dl (Negative); Urine Bilirubin Dipstick Negative (Negative); Urine Clarity Clear (Clear); Urine Urobilinogen Normal (Normal)
[2018-07-14 08:57] LABS: Absolute Lymphocyte Count 0.78 X10^3/ul (0.83-4.51); Absolute Neutrophil Count 0.9 X10^3/uL (2.0-7.7); Basophil# 0.01 X10^3/uL; Basophil% 0.4 % (0-1); Hematocrit 42.2 % (40-54); Hemoglobin 14.6 g/dl (13.0-16.5); Lymphocyte # 0.78 X10^3/ul (4.0); Lymphocyte % 34.4 % (19-41); Mean Corp Hgb Conc 34.6 g/gl (32-36); Mean Corpuscular Hgb 34.8 pg (27.0-32.0); Mean Corpuscular Volume 100.7 fL (80-94); Mean Platelet Vol. 9.6 fl (6.2-12.0); Monocyte# 0.55 X10^3/uL; Monocyte% 24.2 % (0-10); Neutrophil # 0.92 X10^3/uL (2.7-7.7); Neutrophil % 40.6 % (47-70); Platelet Count 112 K/mm3 (150-450); RBC Distribution Width CV 12.7 % (11.6-14.6); RBC Distribution Width SD 46.3 fl (35.1-43.9); Red Blood Count 4.19 M/mm3 (4.6-6.2); White Blood Count 2.3 K/mm3 (4.4-11.0)
[2018-07-14 08:58] LABS: POSITIVE COUNT NO; POSITIVE DIFFERENTIAL YES; POSITIVE MORPHOLOGY NO
[2018-07-14 08:59] LABS: Differential Indicated SCAN CRITERIA MET
[2018-07-14 09:01] LABS: White Blood Cells 0-5 SEEN /hpf (0-5)
[2018-07-14 09:08] LABS: ALB/GLOB Ratio 1.1 RATIO (0.9-2.4); AST(SGOT) 58 U/L (15-37); Alanine Aminotransfer ALT/SGPT 40 U/L (16-61); Albumin, Serum 3.4 g/dL (3.2-5.0); Alkaline Phosphatase 64 U/L (45-117); Anion Gap 10 (5-15); BUN 21 mg/dL (7-18); BUN/Creat Ratio 17.2 RATIO (10-20); Calcium,Total 8.4 mg/dL (8.5-10.1); Chloride 107 mmol/L (98-107); Creatinine, Serum 1.22 mg/dL (0.70-1.30); EST Glomerular Filtration Rate 64 mL/min (>60); Est Glom Filt Rate - Afr Amer 78 mL/min (>60); Estimated Creatinine Clearance 73.93 ml/min; Globulin 3.1 g/dL (2.2-4.2); Glucose 111 mg/dL (74-106); Potassium 4.3 mmol/L (3.5-5.1); Protein, Total 6.5 g/dL (6.4-8.2); Sodium Level 139 mmol/L (136-145)
--- NOTE | 2018-07-14 09:10 | RAD_ITS ---
STUDY: X-RAY CHEST REASON FOR EXAM: Male, 62 years old. Six-day history of neutropenic fever. TECHNIQUE: PA and lateral views of the chest. COMPARISON: Comparison is made with prior study dated February 22, 2018. FINDINGS: Increased markings are seen in the right lower lobe infiltrate with a right lower lobe infiltrate. Stable mild increased markings at the left lung base. There is no demonstrated pleural abnormality. Normal size heart. Normal mediastinum and ofelia. Normal visualized pulmonary arteries. Normal visualized aortic arch and descending thoracic aorta. There are degenerative changes of the visualized thoracic spine. Normal visualized ribs, clavicles, and shoulders. There is no demonstrated abnormality of the visualized soft tissue structures of the upper abdomen. RAD/Chest PA and Lateral IMPRESSION: Right lower lobe infiltrate. Stable increased markings at the left lung base. Electronically Signed: Thomas Barrow MD at 9:31 EST , Service support ,
--- NOTE | 2018-07-14 10:01 | NURSING ---
HOSPITALIST FOR DR MINAYA
--- NOTE | 2018-07-14 10:03 | NURSING ---
RLL PNEUMONIA, IMMUNOCOMPROMISED, MED SURG ANGELITO
--- NOTE | 2018-07-14 10:14 | HP.PCM_ITS ---
Problem List (1) S/P allogeneic bone marrow transplant Status: Chronic (2) Rhinovirus Status: Resolved (3) MDS (myelodysplastic syndrome) Status: Chronic (4) Subconjunctival bleed Status: Resolved Qualifiers: Laterality: left Qualified Code(s): H11.32 - Conjunctival hemorrhage, left eye (5) Community acquired pneumonia Status: Acute Qualifiers: Laterality: right Lung location: lower lobe of lung Qualified Code(s): J18.1 - Lobar pneumonia, unspecified organism History of Present Illness Date of Admission: 07/14/18 Chief Complaint: Low-grade fever and cough The patient is a 62 year old M with history of MDS, 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 It is started with headache, feeling tired, and cough. Patient maintains temperature profile in the diary and shows temperature ranging from 99.2 -101.1 Fahrenheit about a week ago for last 6 days around 100 Fahrenheit. Patient also had loose bowel movement about 2 times daily for last 5 days. Denies abdominal pain. Patient is on Bactrim, antiviral phylaxis and tacrolimus after bone marrow transplant. Patient had similar URI symptoms and grandson about 2 weeks ago and his 10 days ago. In ED, chest x-ray shows right lower lobe infiltrate. [] Past Medical History Past Medical History (Chronic Problems): Chronic Problems (Last Updated 02/22/18 @ 23:19 by Yuan Bear MD) S/P allogeneic bone marrow transplant (Chronic) MDS (myelodysplastic syndrome) (Chronic) Medical History: Medical History (Last Updated 02/22/18 @ 23:19 by Yuan Bear MD) MDS (myelodysplastic syndrome) D46.9 Allergies Penicillins Adverse Reaction (Unknown, Verified 07/14/18 08:00) Other states had blood from bowel after pcn Home Medications: Ambulatory Orders Medication Instructions Recorded Acyclovir 800 mg PO BID 02/22/18 Calcium Citrate 950 mg PO BID 02/22/18 Cholecalciferol (Vitamin D3) 2,000 unit PO DAILY 02/22/18 [Vitamin D3] Magnesium 266 mg PO TID 02/22/18 Sulfamethoxazole/Trimethoprim 1 each PO BID 02/22/18 [Sulfamethoxazole-Tmp Ds Tablet] Tacrolimus [Envarsus Xr] 2 mg PO BID 02/22/18 Surgical History: - - Three left knee surgeries. Smoking Status: Never smoker - *Family History Paternal Family History: Family History (Last Updated 02/22/18 @ 23:21 by Yuan Bear MD) Father Emphysema lung Sister Cancer History Items: No pertinent history - Blood related hemopoietic cancer/lymphoma in first-degree relative Review of Systems Constitutional: Reports: Anorexia, Fever, Malaise, Weakness, Fatigue HEENT: Reports: Head Aches. Denies: Sinus Congestion, Sinus Drainage Cardiovascular: Denies: Chest Pain, Palpitations Respiratory: Reports: Cough. Denies: Shortness of breath at rest, Sputum production Gastrointestinal: Reports: Nausea, - - Loose bowel movement. Denies: Abdominal Pain, Vomiting Genitourinary: Denies: Dysuria, Frequency, Incontinence, Nocturia, Retention, Urgency Musculoskeletal: Denies: Joint Pain, Joint Tenderness Skin: Denies: Rash, Wounds Neurological: Denies: Numbness, Tingling, Focal weakness Psychiatric: Denies: Anxiety, Depression, Homicidal Ideations, Suicidal Ideations Hematologic/ Lymphatic: Denies: Easy Bruising, Easy Bleeding VTE Information - Inpt Only VTE Present on Admission: No VTE Mechan Device Prophylaxis: None VTE Pharm Prophylaxis ordered?: Yes - Physical Exam General: Alert, Oriented x3, Cooperative HEENT: Atraumatic, PERRLA, EOMI, Normocephalic Oral: Dry Mucosa Neck: Supple, No JVD, Negative Carotid Bruits Lungs: Clear to auscultation, Normal air movement, No rhonchi, No wheeze, No rales Cardiovascular: Regular rate, Regular Rhythm, Normal S1, Normal S2, No murmurs Abdomen: Bowel Sounds Present, Soft, Non Tender, Non-Distended Extremities: No edema, Capillary Refill Less than 3 Seconds Skin: No rashes, No breakdown Musculoskeletal: No Tenderness to Palpation of Joints or Extremities Neurological: Cranial nerves II-XII grossly intact, Deep Tendon Reflexes 2+/4 and Symmetrical, Neuro grossly intact, Motor Exam 5/5 strength throughout Psych/Mental Status: Normal Affect, Appropriate Vital Signs Temp Pulse Resp BP Pulse Ox 99 F 92 18 105/74 95 07/14/18 07:56 07/14/18 07:56 07/14/18 07:56 07/14/18 07:56 07/14/18 07:56 Oxygen Delivery Method Room Air Weight: 203 lb 4.259 oz Body Mass Index (BMI) 26.1 Laboratory Tests Past 24 Hrs 07/14/18 07/14/18 07/14/18 08:30 08:32 08:32 WBC 2.3 L RBC 4.19 L Hgb 14.6 Hct 42.2 MCV 100.7 H MCH 34.8 H MCHC 34.6 RDW 12.7 RDW Differential 46.3 H Plt Count 112 L MPV 9.6 Immature Gran % (Auto) 0.400 Neut % (Auto) 40.6 L Lymph % (Auto) 34.4 [place] % (Auto) 24.2 H Eos % (Auto) 0.0 Baso % (Auto) 0.4 Absolute Neuts (auto) 0.9 L Absolute Lymphs (auto) 0.78 L Total Counted Not Reportable Differential Comment COMMENT Sodium 139 Potassium 4.3 Chloride 107 Carbon Dioxide 22.0 Anion Gap 10 BUN 21 H Creatinine 1.22 Estim Creat Clear Calc 73.93 Est GFR (MDRD) Af Amer 78 Est GFR (MDRD) Non-Af 64 BUN/Creatinine Ratio 17.2 Glucose 111 H Lactic Acid Calcium 8.4 L Total Bilirubin 0.40 AST 58 H ALT 40 Alkaline Phosphatase 64 Total Protein 6.5 Albumin 3.4 Globulin 3.1 Albumin/Globulin Ratio 1.1 Urine Color Yellow Urine Clarity Clear Urine pH 5.0 Ur Specific [place] 1.020 Urine Protein 30 H Urine Glucose (UA) Normal Urine Ketones 5 H Urine Occult Blood 10 H Urine Nitrite Negative Urine Bilirubin Negative Urine Urobilinogen Normal Ur Leukocyte Esterase 25 H Urine RBC 0 SEEN Urine WBC 0-5 SEEN Ur Squamous Epith Cells 0 SEEN Urine Bacteria 0 SEEN Urine Mucus 0 SEEN 07/14/18 08:32 WBC RBC Hgb Hct MCV MCH MCHC RDW RDW Differential Plt Count MPV Immature Gran % (Auto) Neut % (Auto) Lymph % (Auto) [place] % (Auto) Eos % (Auto) Baso % (Auto) Absolute Neuts (auto) Absolute Lymphs (auto) Total Counted Differential Comment Sodium Potassium Chloride Carbon Dioxide Anion Gap BUN Creatinine Estim Creat Clear Calc Est GFR (MDRD) Af Amer Est GFR (MDRD) Non-Af BUN/Creatinine Ratio Glucose Lactic Acid 1.0 Calcium Total Bilirubin AST ALT Alkaline Phosphatase Total Protein Albumin Globulin Albumin/Globulin Ratio Urine Color Urine Clarity Urine pH Ur Specific [place] Urine Protein Urine Glucose (UA) Urine Ketones Urine Occult Blood Urine Nitrite Urine Bilirubin Urine Urobilinogen Ur Leukocyte Esterase Urine RBC Urine WBC Ur Squamous Epith Cells Urine Bacteria Urine Mucus Assessment/Plan All Active Problems (Last Updated 02/22/18 @ 23:19 by Yuan Bear MD) Rhinovirus (Resolved) Subconjunctival bleed (Resolved) Community acquired pneumonia (Acute) The patient is a 62 year old M with history of MDS, 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 It is started with headache, feeling tired, and cough. Patient maintains temperature profile in the diary and shows temperature ranging from 99.2 -101.1 Fahrenheit about a week ago for last 6 days around 100 Fahrenheit. Patient also had loose bowel movement about 2 times daily for last 5 days. Denies abdominal pain. Patient is on Bactrim, antiviral phylaxis and tacrolimus after bone marrow transplant. Patient had similar URI symptoms and grandson about 2 weeks ago and his 10 days ago. In ED, chest x-ray shows right lower lobe infiltrate. In ED, UA is negative for pyuria and patient does not have lower urinary tract symptoms. Leukopenia, 2.3 thousand, ANC 0.4 thousand, platelet count 112,000. Patient has chronic thrombocytopenia and his platelet has been in range of 40,000 in the past. WBC was count was normal in February 2018. 1. Right lower lobe community-acquired pneumonia in immunocompromised host and neutropenia: Patient is being admitted on regular MedSurg floor. Droplet precaution. Started on IV Rocephin and Zithromax. Urinary antigens are ordered. Blood cultures were ordered from ER. Respiratory panel ordered. Bronchodilator as needed. Mucinex and chest physiotherapy. 2. Myelodysplastic syndrome status post allogenic bone marrow transplantation: Continue Bactrim, acyclovir and tacrolimus. Tacrolimus level a.m. tomorrow. Patient follows Dr. Hernandez and has been consulted for further opinion regarding neutropenia. Mild low-grade neutropenic fever. 3. Mild loose bowel movement: Does not meet the criteria of diarrhea as he does not have more than 3 bottles per day. Stool for C. difficile and enteric p athology panel ordered in view of immunocompromised host and on chronic Bactrim prophylaxis. 4. DVT prophylaxis: Bilateral SCDs. Pharmacological prophylaxis contracted in view of thrombocytopenia. Microbiology Past 72 Hours 07/14/18 14:55 Stool Stool Lactoferrin - Final 07/14/18 14:55 Stool Stool Occult Blood (AVEL) - Final 07/14/18 08:30 Urine, Clean Catch Streptococcus pneumoniae Antigen (M - Final 07/14/18 08:30 Urine, Clean Catch Legionella Antigen - Final 07/14/18 08:32: Lactic Acid 1.0 Code Visit Inpatient E&M: 53410 Init Hosp L3
[2018-07-14] MEDS: Ceftriaxone 1 GM/50 ML BAG IV (10:23)
--- NOTE | 2018-07-14 13:09 | CON.PCM_ITS ---
Problem List (1) S/P allogeneic bone marrow transplant Status: Acute (2) Community acquired pneumonia Status: Acute Reason for Consult: CAP Consulted by: Dr. Asif History of Present Illness: The patient is a 62 year old M s/p allo BMT for MDS at [facility] 06/2017, pt of Dr. Martin, who presented this AM from ED with about 6 days of not feeling well, dry cough, mild upset stomach, some headache, some chills. Grandson with similar sx 2 weeks ago, then pt's with similar sx about 10 days ago. No sputum, no myalgias. No recent changes to immunosuppression or prophylaxis with bactrim and acyclovir. No SOB. No diarrhea, but some soft stools. Came to ED, cxr showed R infiltrate, admitted on azithro/ceftriaxone. Full ROS performed and neg except as noted above. - Medical History Allergies/Adverse Reactions: Allergies Penicillins Adverse Reaction (Unknown, Verified 07/14/18 08:00) Other states had blood from bowel after pcn Home Medications: Ambulatory Orders Medication Instructions Recorded Acyclovir 800 mg PO BID 02/22/18 Calcium Citrate 950 mg PO BID 02/22/18 Cholecalciferol (Vitamin D3) 2,000 unit PO DAILY 02/22/18 [Vitamin D3] Magnesium 266 mg PO TID 02/22/18 Sulfamethoxazole/Trimethoprim 1 each PO BID 02/22/18 [Sulfamethoxazole-Tmp Ds Tablet] Tacrolimus [Envarsus Xr] 2 mg PO BID 02/22/18 - Social History Tobacco Use: non-smoker Vital Signs Temp Pulse Resp BP Pulse Ox 99 F 94 16 110/79 93 07/14/18 11:29 07/14/18 11:29 07/14/18 11:29 07/14/18 11:29 07/14/18 11:29 Oxygen Delivery Method Room Air Weight: 92.079 kg Body Mass Index (BMI) 26.7 Microbiology Past 72 Hours 07/14/18 08:30 Streptococcus pneumoniae Antigen (M - Final Urine, Clean Catch 07/14/18 08:30 Legionella Antigen - Final Urine, Clean Catch Laboratory Tests Past 24 Hrs 07/14/18 07/14/18 07/14/18 08:30 08:32 08:32 WBC 2.3 L RBC 4.19 L Hgb 14.6 Hct 42.2 MCV 100.7 H MCH 34.8 H MCHC 34.6 RDW 12.7 RDW Differential 46.3 H Plt Count 112 L MPV 9.6 Immature Gran % (Auto) 0.400 Neut % (Auto) 40.6 L Lymph % (Auto) 34.4 [place] % (Auto) 24.2 H Eos % (Auto) 0.0 Baso % (Auto) 0.4 Absolute Neuts (auto) 0.9 L Absolute Lymphs (auto) 0.78 L Total Counted Not Reportable Differential Comment COMMENT Sodium 139 Potassium 4.3 Chloride 107 Carbon Dioxide 22.0 Anion Gap 10 BUN 21 H Creatinine 1.22 Estim Creat Clear Calc 73.93 Est GFR (MDRD) Af Amer 78 Est GFR (MDRD) Non-Af 64 BUN/Creatinine Ratio 17.2 Glucose 111 H Lactic Acid Calcium 8.4 L Total Bilirubin 0.40 AST 58 H ALT 40 Alkaline Phosphatase 64 Total Protein 6.5 Albumin 3.4 Globulin 3.1 Albumin/Globulin Ratio 1.1 Urine Color Yellow Urine Clarity Clear Urine pH 5.0 Ur Specific [place] 1.020 Urine Protein 30 H Urine Glucose (UA) Normal Urine Ketones 5 H Urine Occult Blood 10 H Urine Nitrite Negative Urine Bilirubin Negative Urine Urobilinogen Normal Ur Leukocyte Esterase 25 H Urine RBC 0 SEEN Urine WBC 0-5 SEEN Ur Squamous Epith Cells 0 SEEN Urine Bacteria 0 SEEN Urine Mucus 0 SEEN 07/14/18 08:32 WBC RBC Hgb Hct MCV MCH MCHC RDW RDW Differential Plt Count MPV Immature Gran % (Auto) Neut % (Auto) Lymph % (Auto) [place] % (Auto) Eos % (Auto) Baso % (Auto) Absolute Neuts (auto) Absolute Lymphs (auto) Total Counted Differential Comment Sodium Potassium Chloride Carbon Dioxide Anion Gap BUN Creatinine Estim Creat Clear Calc Est GFR (MDRD) Af Amer Est GFR (MDRD) Non-Af BUN/Creatinine Ratio Glucose Lactic Acid 1.0 Calcium Total Bilirubin AST ALT Alkaline Phosphatase Total Protein Albumin Globulin Albumin/Globulin Ratio Urine Color Urine Clarity Urine pH Ur Specific [place] Urine Protein Urine Glucose (UA) Urine Ketones Urine Occult Blood Urine Nitrite Urine Bilirubin Urine Urobilinogen Ur Leukocyte Esterase Urine RBC Urine WBC Ur Squamous Epith Cells Urine Bacteria Urine Mucus - Other Studies Radiology: [] reviewed cxr images, R base infiltrate. Other Studies: [] Route of nutrition/ use of supplements: [] Nutritional Intake: [] IV Site: [] Conner Catheter: [] - Physical Exam General: Alert, Oriented x3, Cooperative, No apparent distress HEENT: Atraumatic, PERRLA, EOMI Neck: Supple, No Nodes Lungs: Rhonchi - R side Cardiovascular: Regular rate, Regular Rhythm, No murmurs Abdomen: Soft, Non Tender, Non-Distended Extremities: No edema Skin: No rashes IV Site: Peripheral, without redness Musculoskeletal: No Tenderness to Palpation of Joints or Extremities Neurological: Cranial nerves II-XII grossly intact - Assessment/Plan Antibiotics: [] Assessment/Plan: [] CAP with prior allo SCT in 06/2017 for MDS - recent viral URI exposure. Will order resp viral pcr. Cont azithro/ceftriaxone. Bcx pending. UAgs neg. ANC 900, no fever here. Has been taking acyclovir and bactrim for prophylaxis. Will follow, thank you, d/w Dr. Asif.
[2018-07-14] MEDS: Albuterol 2.5 MG/3 ML VIAL.NEB. INHALATION (13:13)
[2018-07-14] MEDS: 0.9% Normal Saline 1,000 ML 100 ML IV ×2 (13:54→22:06)
[2018-07-14] MEDS: Acetaminophen 325 MG Tablet 650 MG PO ×2 (13:54→22:06)
--- NOTE | 2018-07-14 17:26 | ONC.CONS.INP ---
Subjective Date of Service:: 07/14/18 Chief Complaint: MDS status post BMT History of Present Illness: Mr. 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 Kathy Helton at the [facility]. Post transplant period complicated by idiopathic pneumonia syndrome and grade 1 [id number] disease of the skin to the right neck and lower back. Thus he is maintained on tacrolimus, Bactrim on Mondays and Wednesdays and acyclovir twice daily daily. Immunizations provided by Dr. Helton on 04/29/2019 include DTaP, hep a hep B, Hib, IPV, pneumococcal vaccines and flu vaccine was given January 2018. The patient presented to emergency department earlier this morning with complaints of generalized weakness, decreased appetite, fevers, diarrhea and occasional nonproductive cough times 1 week. Grandson and spouse at home with similar symptoms although their URI course lasted less than 3 days. Chest x-ray revealed right lower lobe infiltrate and he was subsequently admitted for management of pneumonia. Upon entering the room patient is sitting up comfortably in the chair. Specifically denies headaches, chills, shortness of breath, chest pain, any episodes of bleeding or abnormal bruising. States I just feel bad describing generalized weakness and malaise. Past Medical History: Chronic Problems (Last Updated 02/22/18 @ 23:19 by Yuan Bear MD) S/P allogeneic bone marrow transplant (Chronic) MDS (myelodysplastic syndrome) (Chronic) Past Medical/Surgical History: Past Medical History - Most Recent Inpatient Visit Past Medical History Start: 07/14/18 10:50 Text: Status: Complete Freq: ONCE Protocol: Document 07/14/18 11:21 TDW (Rec: 07/14/18 11:28 TDW [id number]) BMI Required to complete PMH What is Patient's BMI 26.7 Neurologic Medical History Hx Stroke/TIA No Hx Dementia/Alzheimer's No Hx Parkinson's Disease No Hx Seizures Yes: 1992 NOCTURNAL Hx Multiple Sclerosis No Hx Migraines Yes: HX Cardiac Medical History VTE Present on Admission No Hx of Deep Vein Thrombosis/VTE/PE No Hx Hypertension No Hx Chest Pain/Angina No Hx Heart Attack No Hx Cardiac Surgery/Stents/Etc. No Hx Heart Failure No Hx Pacemaker/AICD No Hx Irregular Heartbeat and/or Afib No Hx Anticoagulant Therapy No Query Text:(Coumadin, Aspirin, Plavix, Xarelto, etc.) Hx Pain in Legs when Walking/Leg Cramps No Respiratory Medical History Hx COPD No Hx Emphysema No Hx Smoking No Smoking Status Never smoker Hx Tobacco Use in last 12 months No Hx Sleep Apnea No Do you snore loudly (louder than talking No or can be heard through closed doors)? Do you often feel tired/ fatigued/ No sleepy during daytime? Has anyone observed you stop breathing No during sleep? STOP Results Negative GI Medical History Hx Ulcer No Hx Hepatitis No Hx Cirrhosis No Hx GI Bleed No Hx Unplanned Weight Loss Yes Genitourinary Medical History Indwelling Catheter in Place on Arrival/ No Admission Hx Renal Disease No Hx Dialysis No Musculoskeletal History Hx Arthritis No Hx Rheumatoid Arthritis No Endocrine Medical History Hx Diabetes No Hx Thyroid Disease No Hematologic Medical History Hx of Blood Transfusion Yes Hx of Transfusion in last 3 Months No Ever experience any problems with No transfusion(s)? Hx of Preganancy in last 3 Months N/A Nurse Filling Out Transfusion & TWOLF Questions: Date: 07/14/18 Time: 11:24 Psycho/Social Medical History Hx Depression No Hx Anxiety No Hx Behavior Disorder No Hx Alcohol Use No Hx Substance Use No Other Medical History Hx Blood Disorders Yes: MDS Hx Anemia No Hx Cancer Yes: MDS S/P bone marrow transplant Hx Drug Resistant Organism No Wound/Pressure Injury Present on Arrival No /Admission Query Text:If yes, chart assessment in Shift/Clinical Findings Central Line/PICC/VAD Present on Arrival No /Admission Antibiotics within last 7 days? Yes Name of Antibiotic (Include dose/# days bactrium taken if known) Risk for Readmission Number of Risk Factors 4 At Risk for Readmission Patient is At Risk For Readmission Patient is eligible for Call Back Y Past Medical History (Last Updated 02/22/18 @ 23:19 by Yuan Bear MD) MDS (myelodysplastic syndrome) (Acute) Paternal Family History: Family History (Last Updated 02/22/18 @ 23:21 by Yuan Bear MD) Father Emphysema lung Sister Cancer Family History: No pertinent history - Blood related hemopoietic cancer/lymphoma in first-degree relative - Social History Smoking Status: Never smoker Allergies/Adverse Reactions: Allergy/AdvReac Type Severity Reaction Status Date / Time Penicillins AdvReac Unknown Other Verified 07/14/18 08:00 Review of Systems Constitutional:: Reports: Weakness, Fatigue, Appetite change. Denies: Fever, Sweats, Weight loss, Chills Cardiovascular:: Denies: Chest pain, Palpitations, Dyspnea on exertion, Orthopnea, PND, Shortness of breath Respiratory: Reports: Cough - See HPI. Denies: Hemoptysis, Shortness of Breath, Wheezing Gastrointestinal:: Denies: Abdominal pain, Nausea, Vomiting, Diarrhea, Constipation, Melena, Hematochezia Genitourinary: Denies: Dysuria, Hematuria, 15, Flank pain Musculoskeletal:: Denies: Back pain, Myalgia, Arthralgia Skin: Denies: Rash, Skin Changes, Wounds Neurological:: Denies: Headache, Dizziness, Numbness, Tingling, Visual changes, Tinnitus, Hearing loss Psychiatric: Denies: Anxiety, Depression, Homicidal Ideations, Suicidal Ideations Vital Signs Height 6 ft 1 in Weight: 203 lb Weight in Pounds 203.0 lbs Pulse Ox 92 Temperature 99.2 F Pulse Rate 87 Respiratory Rate 16 Blood Pressure 108/60 Blood Pressure Position Semi-Fowlers - Physical Exam General: Alert, Oriented x3, No apparent distress HEENT: Atraumatic, Normocephalic Oropharynx:: Negative for: Dry mucosa, Ulcerated lesions Neck:: Supple, Trachea midline. Negative for: JVD, bilateral Cardiac:: Regular rate, Regular rhythm, Normal S1, Normal S2. Negative for: Murmur Lungs: Clear to auscultation, Excusion symmetrical. Negative for: Rhonchi, Wheezes Abdomen:: Bowel sounds x 4, Soft, Non-tender, Non-distended. Negative for: Hepatosplenomegaly Extremities:: Negative for: Cyanosis, Edema Neurological: Neuro grossly intact Skin:: - - Close attention paid to right side of neck?no rash observed. Negative for: Lesions, Rash, Petechiae, Ecchymosis Psychiatric:: Appropriate affect, Euthymic Lymphatics:: Negative for: Cervical lymphadenopathy, Supraclavicular lymphadenopathy, Axillary lymphadenopathy Laboratory Data: Microbiology 07/14/18 14:55 Stool Lactoferrin - Final Stool 07/14/18 14:55 Stool Occult Blood (AVEL) - Final Stool 07/14/18 08:30 Streptococcus pneumoniae Antigen (M - Final Urine, Clean Catch 07/14/18 08:30 Legionella Antigen - Final Urine, Clean Catch Laboratory Tests 07/14/18 07/14/18 07/14/18 Range/Units 08:32 08:32 08:32 WBC 2.3 L (4.4-11.0) K/mm3 RBC 4.19 L (4.6-6.2) M/mm3 Hgb 14.6 (13.0-16.5) g/dl Hct 42.2 (40-54) % MCV 100.7 H (80-94) fL MCH 34.8 H (27.0-32.0) pg MCHC 34.6 (32-36) g/gl RDW 12.7 (11.6-14.6) % RDW Differential 46.3 H (35.1-43.9) fl Plt Count 112 L (150-450) K/mm3 MPV 9.6 (6.2-12.0) fl Immature Gran % (Auto) 0.400 (0.0-0.9) % Neut % (Auto) 40.6 L (47-70) % Lymph % (Auto) 34.4 (19-41) % Smyth % (Auto) 24.2 H (0-10) % Eos % (Auto) 0.0 (0-5) % Baso % (Auto) 0.4 (0-1) % Absolute Neuts (auto) 0.9 L (2.0-7.7) X10^3/uL Absolute Lymphs (auto) 0.78 L (0.83-4.51) X10^3/ul Total Counted Not Reportable Differential Comment COMMENT Sodium 139 (136-145) mmol/L Potassium 4.3 (3.5-5.1) mmol/L Chloride 107 (98-107) mmol/L Carbon Dioxide 22.0 (21.0-32.0) mmol/L Anion Gap 10 (5-15) BUN 21 H (7-18) mg/dL Creatinine 1.22 (0.70-1.30) mg/dL Estim Creat Clear Calc 73.93 ml/min Est GFR (MDRD) Af Amer 78 (>60) mL/min Est GFR (MDRD) Non-Af 64 (>60) mL/min BUN/Creatinine Ratio 17.2 (10-20) RATIO Glucose 111 H (74-106) mg/dL Lactic Acid 1.0 (0.4-2.0) mmol/L Calcium 8.4 L (8.5-10.1) mg/dL Total Bilirubin 0.40 (0.20-1.00) mg/dL AST 58 H (15-37) U/L ALT 40 (16-61) U/L Alkaline Phosphatase 64 (45-117) U/L Total Protein 6.5 (6.4-8.2) g/dL Albumin 3.4 (3.2-5.0) g/dL Globulin 3.1 (2.2-4.2) g/dL Albumin/Globulin Ratio 1.1 (0.9-2.4) RATIO Urine Color (Yellow) Urine Clarity (Clear) Urine pH (5.0 - 8.0) Ur Specific Emerson (1.002-1.030) Urine Protein (Negative) mg/dl Urine Glucose (UA) (Normal) mg/dl Urine Ketones (Negative) mg/dl Urine Occult Blood (Negative) /ul Urine Nitrite (Negative) Urine Bilirubin (Negative) mg/dL Urine Urobilinogen (Normal) mg/dl Ur Leukocyte Esterase (Negative) /ul Urine RBC (0-5) /hpf Urine WBC (0-5) /hpf Ur Squamous Epith Cells (0-5) /hpf Urine Bacteria (None Seen) /hpf Urine Mucus (<or=2+) /hpf 07/14/18 Range/Units 08:30 WBC (4.4-11.0) K/mm3 RBC (4.6-6.2) M/mm3 Hgb (13.0-16.5) g/dl Hct (40-54) % MCV (80-94) fL MCH (27.0-32.0) pg MCHC (32-36) g/gl RDW (11.6-14.6) % RDW Differential (35.1-43.9) fl Plt Count (150-450) K/mm3 MPV (6.2-12.0) fl Immature Gran % (Auto) (0.0-0.9) % Neut % (Auto) (47-70) % Lymph % (Auto) (19-41) % Smyth % (Auto) (0-10) % Eos % (Auto) (0-5) % Baso % (Auto) (0-1) % Absolute Neuts (auto) (2.0-7.7) X10^3/uL Absolute Lymphs (auto) (0.83-4.51) X10^3/ul Total Counted Differential Comment Sodium (136-145) mmol/L Potassium (3.5-5.1) mmol/L Chloride (98-107) mmol/L Carbon Dioxide (21.0-32.0) mmol/L Anion Gap (5-15) BUN (7-18) mg/dL Creatinine (0.70-1.30) mg/dL Estim Creat Clear Calc ml/min Est GFR (MDRD) Af Amer (>60) mL/min Est GFR (MDRD) Non-Af (>60) mL/min BUN/Creatinine Ratio (10-20) RATIO Glucose (74-106) mg/dL Lactic Acid (0.4-2.0) mmol/L Calcium (8.5-10.1) mg/dL Total Bilirubin (0.20-1.00) mg/dL AST (15-37) U/L ALT (16-61) U/L Alkaline Phosphatase (45-117) U/L Total Protein (6.4-8.2) g/dL Albumin (3.2-5.0) g/dL Globulin (2.2-4.2) g/dL Albumin/Globulin Ratio (0.9-2.4) RATIO Urine Color Yellow (Yellow) Urine Clarity Clear (Clear) Urine pH 5.0 (5.0 - 8.0) Ur Specific Emerson 1.020 (1.002-1.030) Urine Protein 30 H (Negative) mg/dl Urine Glucose (UA) Normal (Normal) mg/dl Urine Ketones 5 H (Negative) mg/dl Urine Occult Blood 10 H (Negative) /ul Urine Nitrite Negative (Negative) Urine Bilirubin Negative (Negative) mg/dL Urine Urobilinogen Normal (Normal) mg/dl Ur Leukocyte Esterase 25 H (Negative) /ul Urine RBC 0 SEEN (0-5) /hpf Urine WBC 0-5 SEEN (0-5) /hpf Ur Squamous Epith Cells 0 SEEN (0-5) /hpf Urine Bacteria 0 SEEN (None Seen) /hpf Urine Mucus 0 SEEN (<or=2+) /hpf Diagnostic Data: Diagnostic Data Chest X-Ray 07/14/18 09:10 IMPRESSION: Right lower lobe infiltrate. Stable increased markings at the left lung base. Electronically Signed: Thomas Barrow MD at 9:31 EST , Service support , Assessment and Plan 1. MDS- status post haploidentical BMT June 2017 under the care of Dr. Helton at the [facility]. CBC shows hemoglobin 14.6, platelets 112,000 and neutropenic as evidenced by an ANC of 900. On prophylaxis with acyclovir and also Bactrim Mondays and Fridays and maintained on tacrolimus. Immunosuppressive therapy likely prolonging course of acute illness initiated by viral URI. 2. Community-acquired pneumonia?with recent viral upper respiratory infection exposure. Viral respiratory studies pending. Blood cultures pending. Followed by infectious disease. Will monitor CBC daily. Case discussed with Dr. Ortega who is in agreement with aforementioned plan. Edel Wynn, MAG, [employer]EIGN LANG[employer]AGE STENOGR[employer]HER-C, AOCNP Medications: Medications Added to Medication List This Visit Category Date Time Status 0.9% Normal Saline 1,000 ml Med 07/14/18 11:11 Active IV 100 mls/hr 0.9% Saline Lock Med 07/14/18 12:45 Active 5 - 15 ml IV UD PRN Acetaminophen [Tylenol] Med 07/14/18 11:11 Active 650 mg PO Q4H PRN PRN Acyclovir [Zovirax] Med 07/15/18 10:00 Active 800 mg PO DAILY Albuterol Aerosols [Ventolin Aerosols] Med 07/14/18 11:11 Active 2.5 mg INHALATION Q2H PRN PRN Azithromycin [Zithromax] 500 mg Med 07/15/18 10:00 Active Dextrose 5% 250 ml IV Q24 Bisacodyl [Dulcolax] Med 07/14/18 11:11 Active 10 mg RECTAL DAILY PRN PRN Ceftriaxone [Rocephin] Med 07/15/18 10:00 Active 1 gm in 50 ml IV Q24 Cholecalciferol (VIT D3) [Vitamin D] Med 07/15/18 10:00 Active 2,000 unit PO DAILY Clarify Order Med 07/14/18 13:00 Active 0 ea NOTE CLARIFY Docusate Sodium [Colace] Med 07/14/18 11:11 Active 200 mg PO BID PRN PRN Ensure Enlive Med 07/14/18 14:00 Active 120 ml PO 4X/DAY Famotidine [Pepcid] Med 07/14/18 22:00 Active 20 mg PO BID Guaifenesin [Mucinex] Med 07/14/18 22:00 Active 1,200 mg PO BID Ondansetron [Zofran] Med 07/14/18 11:11 Active 4 mg IV Q8H PRN PRN Oseltamivir Phosphate [Tamiflu] Med 07/14/18 17:00 Active 75 mg PO BID Oxycodone [Oxyir] Med 07/14/18 11:11 Active 5 mg PO Q4H PRN PRN Polyethylene Glycol 3350 [Miralax] Med 07/15/18 10:00 Active 17 gm PO DAILY Smz/Tmp Ds [Bactrim Ds] Med 07/18/18 08:00 Active 1 tablet PO MoFr@0800 Smz/Tmp Ds [Bactrim Ds] Med 07/14/18 17:00 Active 1 tablet PO MoFr@1700 Tacrolimus [Envarsus Xr] Med 07/14/18 22:00 Pending 2 mg PO BID Zolpidem Tartrate [Ambien (Generic)] Med 07/14/18 11:11 Active 5 mg PO QHS PRN PRN morphine Inj Med 07/14/18 11:11 Active 1 - 2 mg IV Q4H PRN PRN Primary Care Provider: Zaki Sears MD Referring Provider: - Problem List (1) MDS (myelodysplastic syndrome) Status: Chronic (2) S/P allogeneic bone marrow transplant Status: Chronic
[2018-07-14] MEDS: Smz/Tmp Ds Tablet 1 TABLET PO (18:10)
[2018-07-14] MEDS: Oseltamivir Phosphate 75 MG Capsule PO (18:11)
[2018-07-14] MEDS: Famotidine 20 MG Tablet PO (22:05)
[2018-07-14] MEDS: guaiFENesin 1,200 MG Tablet 1200 MG PO (22:05)
[2018-07-14] MEDS: Zolpidem Tartrate 5 MG Tablet PO (22:06)
--- NOTE | 2018-07-14 22:34 | NURSING ---
Spoke to patient about Tacrolimus that he takes BID to clarify if extended release or not. Patient called who read the bottle and states it does not say extended release. Patient's external medication list also verifies that he does not take extended release. Katie in pharmacy notified by phone @ this time.
[2018-07-14] MEDS: Tacrolimus Anhydrous 1 MG Capsule 2 MG PO (22:47)
[2018-07-15 03:55] VITALS: BP 113/69; PULSE 77; RESP 14; TEMP 37; O2SAT 93
[2018-07-15 06:24] LABS: Anion Gap 9 (5-15); BUN 18 mg/dL (7-18); BUN/Creat Ratio 15.9 RATIO (10-20); Calcium,Total 7.7 mg/dL (8.5-10.1); Chloride 110 mmol/L (98-107); Creatinine, Serum 1.13 mg/dL (0.70-1.30); EST Glomerular Filtration Rate 70 mL/min (>60); Est Glom Filt Rate - Afr Amer 85 mL/min (>60); Estimated Creatinine Clearance 77.58 ml/min; Glucose 99 mg/dL (74-106); Potassium 3.9 mmol/L (3.5-5.1); Sodium Level 142 mmol/L (136-145)
[2018-07-15 06:27] LABS: Absolute Neutrophil Count 0.5 X10^3/uL (2.0-7.7); Basophil# 0.01 X10^3/uL; Basophil% 0.4 % (0-1); Eosinophil# 0.01 X10^3/uL; Eosinophils% 0.4 % (0-5); Hematocrit 40.6 % (40-54); Hemoglobin 13.7 g/dl (13.0-16.5); Lymphocyte % 57.3 % (19-41); Mean Corp Hgb Conc 33.7 g/gl (32-36); Mean Corpuscular Hgb 34.2 pg (27.0-32.0); Mean Corpuscular Volume 101.2 fL (80-94); Neutrophil # 0.45 X10^3/uL (2.7-7.7); Neutrophil % 19.9 % (47-70); Platelet Count 105 K/mm3 (150-450); RBC Distribution Width CV 12.9 % (11.6-14.6); RBC Distribution Width SD 47.3 fl (35.1-43.9); Red Blood Count 4.01 M/mm3 (4.6-6.2); White Blood Count 2.3 K/mm3 (4.4-11.0)
[2018-07-15 06:36] LABS: Differential Indicated SCAN CRITERIA MET; POSITIVE COUNT NO; POSITIVE DIFFERENTIAL YES; POSITIVE MORPHOLOGY NO
[2018-07-15] MEDS: Oseltamivir Phosphate 75 MG Capsule PO ×2 (08:43→22:23)
[2018-07-15] MEDS: guaiFENesin 1,200 MG Tablet 1200 MG PO ×2 (08:43→22:23)
[2018-07-15] MEDS: Famotidine 20 MG Tablet PO ×2 (08:43→22:23)
[2018-07-15 09:11] VITALS: BP 107/67; PULSE 80; RESP 16; TEMP 36.8; O2SAT 96
[2018-07-15] MEDS: Ceftriaxone 1 GM/50 ML BAG IV (09:51)
[2018-07-15] MEDS: 0.9% NaCl Peripheral Flush Adult/Peds IV (09:51)
--- NOTE | 2018-07-15 10:18 | PCM.PN.HOSP ---
Subjective: Temperature profile shows T-max 100.1 Fahrenheit last night. No shortness of breath or hypoxia. Respiratory rate 16. Respiratory panel positive of influenza A H1 and RSV-B Vitals/I&O's: Vital Signs Temp Pulse Resp BP Pulse Ox 98.3 F 80 16 107/67 96 07/15/18 09:11 07/15/18 09:11 07/15/18 09:11 07/15/18 09:11 07/15/18 09:11 Oxygen Delivery Method Room Air Weight: 203 lb 0.732 oz Body Mass Index (BMI) 26.7 Intake and Output for Last 24 Hours 07/13/18 07/14/18 07/15/18 23:59 23:59 23:59 Intake Total 1326 / 1326 1640 / 1640 Balance 1326 / 1326 1640 / 1640 General: Alert, Oriented x3, Cooperative HEENT: Atraumatic, PERRLA, EOMI, Normocephalic Neck: Supple, No JVD, Negative Carotid Bruits Lungs: Clear to auscultation, Normal air movement, No rhonchi, No wheeze, No rales Cardiovascular: Regular rate, Normal S1, Normal S2, No murmurs Abdomen: Bowel Sounds Present, Soft, Non Tender, Non-Distended Extremities: No edema, Capillary Refill Less than 3 Seconds Skin: No rashes, No breakdown Musculoskeletal: No Tenderness to Palpation of Joints or Extremities Neurological: Cranial nerves II-XII grossly intact Psych/Mental Status: Normal Affect, Appropriate Microbiology Past 72 Hours 07/14/18 13:22 Mucosa - Nasopharyngeal Respiratory Panel (PCR) - Final Influenza A (Subtype H1) RSV B 07/14/18 14:55 Stool Stool Lactoferrin - Final 07/14/18 14:55 Stool Stool Occult Blood (AVEL) - Final 07/14/18 08:30 Urine, Clean Catch Streptococcus pneumoniae Antigen (M - Final 07/14/18 08:30 Urine, Clean Catch Legionella Antigen - Final Laboratory Results 07/15/18 05:20: WBC 2.3 L, RBC 4.01 L, Hgb 13.7, Hct 40.6, MCV 101.2 H, MCH 34.2 H, MCHC 33.7, RDW 12.9, RDW Differential 47.3 H, Plt Count 105 L, MPV 10.0, Immature Gran % (Auto) 0.000, Neut % (Auto) 19.9 L, Lymph % (Auto) 57.3 H, Reagan % (Auto) 22.0 H, Eos % (Auto) 0.4, Baso % (Auto) 0.4, Absolute Neuts (auto) 0.5 L, Absolute Lymphs (auto) 1.30, Total Counted Not Reportable 07/15/18 05:20: Sodium 142, Potassium 3.9, Chloride 110 H, Carbon Dioxide 23.0, Anion Gap 9, BUN 18, Creatinine 1.13, Estim Creat Clear Calc 77.58, Est GFR (MDRD) Af Amer 85, Est GFR (MDRD) Non-Af 70, BUN/Creatinine Ratio 15.9, Glucose 99, Calcium 7.7 L 07/15/18 05:20: Tacrolimus Pending Current Medications Acetaminophen (Tylenol) 650 mg PO Q4H PRN PRN PRN Reason: Fever/PAIN Last Admin: 07/14/18 22:06 Dose: 650 mg Acyclovir (Zovirax) 800 mg PO DAILY [facility] Last Admin: 07/15/18 08:45 Dose: Not Given Albuterol Sulfate (Ventolin Aerosols) 2.5 mg INHALATION Q2H PRN PRN PRN Reason: SHORTNESS OF BREATH Last Admin: 07/14/18 13:13 Dose: 2.5 mg Bisacodyl (Dulcolax) 10 mg RECTAL DAILY PRN PRN PRN Reason: Constipation Cholecalciferol (Vitamin D) 2,000 unit PO DAILY [facility] Last Admin: 07/15/18 08:44 Dose: Not Given Docusate Sodium (Colace) 200 mg PO BID PRN PRN PRN Reason: Constipation Famotidine (Pepcid) 20 mg PO BID [facility] Last Admin: 07/15/18 08:43 Dose: 20 mg Guaifenesin (Mucinex) 1,200 mg PO BID [facility] Last Admin: 07/15/18 08:43 Dose: 1,200 mg Sodium Chloride () 1,000 mls @ 100 mls/hr IV .Q10H [facility] Last Admin: 07/14/18 22:06 Dose: 100 mls/hr Azithromycin 500 mg/ Dextrose 255 mls @ 250 mls/hr IV Q24 [facility] Stop: 07/17/18 11:02 Ceftriaxone Sodium (Rocephin) 1 gm in 50 mls @ 100 mls/hr IV Q24 [facility] Last Admin: 07/15/18 09:51 Dose: 100 mls/hr Morphine Sulfate () 1 - 2 mg IV Q4H PRN PRN PRN Reason: SEVERE PAIN (6-10/10) Nutritional Formula (Lactose Free) (Ensure Enlive) 120 ml PO 4X/DAY [facility] Last Admin: 07/15/18 08:44 Dose: Not Given Ondansetron HCl (Zofran) 4 mg IV Q8H PRN PRN PRN Reason: NAUSEA Oseltamivir Phosphate (Tamiflu) 75 mg PO BID [facility] Stop: 07/19/18 10:01 Last Admin: 07/15/18 08:43 Dose: 75 mg Oxycodone HCl (Oxyir) 5 mg PO Q4H PRN PRN PRN Reason: Moderate Pain (pain scale 4-5) Polyethylene Glycol (Miralax) 17 gm PO DAILY [facility] Last Admin: 07/15/18 08:40 Dose: Not Given Sodium Chloride () 5 - 15 ml IV UD PRN PRN Reason: SALINE FLUSH Last Admin: 07/15/18 09:51 Dose: 10 ml Tacrolimus (Prograf) 2 mg PO BID [facility] Last Admin: 07/15/18 08:44 Dose: Not Given Trimethoprim/Sulfamethoxazole (Bactrim Ds) 1 tablet PO MoFr@0800 [facility] Trimethoprim/Sulfamethoxazole (Bactrim Ds) 1 tablet PO MoFr@1700 [facility] Last Admin: 07/14/18 18:10 Dose: 1 tablet Zolpidem Tartrate (Ambien (Generic)) 5 mg PO QHS PRN PRN PRN Reason: SLEEP Last Admin: 07/14/18 22:06 Dose: 5 mg Medical Necessity - Tobacco Use Smoking Status: Never smoker Assessment/Plan All Active Problems (Last Updated 02/22/18 @ 23:19 by Yuan Bear MD) Rhinovirus (Resolved) Subconjunctival bleed (Resolved) Community acquired pneumonia (Acute) The patient is a 62 year old M with history of MDS, 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 It is started with headache, feeling tired, and cough. Patient maintains temperature profile in the diary and shows temperature ranging from 99.2 -101.1 Fahrenheit about a week ago for last 6 days around 100 Fahrenheit. Patient also had loose bowel movement about 2 times daily for last 5 days. Denies abdominal pain. Patient is on Bactrim, antiviral phylaxis and tacrolimus after bone marrow transplant. Patient had similar URI symptoms and grandson about 2 weeks ago and his 10 days ago. In ED, chest x-ray shows right lower lobe infiltrate. In ED, UA is negative for pyuria and patient does not have lower urinary tract symptoms. Leukopenia, 2.3 thousand, ANC 900, platelet count 112,000. Patient has chronic thrombocytopenia and his platelet has been in range of 40,000 in the past. WBC was count was normal in February 2018. 1. Right lower lobe community-acquired pneumonia, most probably influenza A and RSV with possible bacterial superinfection in immunocompromised host and neutropenia: Patient is being admitted on regular MedSurg floor. Droplet precaution. Started on IV Rocephin and Zithromax. Urinary antigens are ordered. Blood cultures were ordered from ER. Respiratory panel ordered. Bronchodilator as needed. Mucinex and chest physiotherapy. 2. Myelodysplastic syndrome status post allogenic bone marrow transplantation: Continue Bactrim, acyclovir and tacrolimus. Tacrolimus level is pending. Dr. Hernandez consult reviewed and appreciated. Mild low-grade neutropenic fever. 3. Mild loose bowel movement: Does not meet the criteria of diarrhea as he does not have more than 3 BM per day. Patient does not meet criteria for C. difficile infection as he did not have more than 3 bowel movements per day.enteric bacteriology panel pending 4. DVT prophylaxis: Bilateral SCDs. Pharmacological prophylaxis contracted in view of thrombocytopenia. Microbiology Past 72 Hours 07/14/18 13:22 Mucosa - Nasopharyngeal Respiratory Panel (PCR) - Final Influenza A (Subtype H1) RSV B 07/14/18 14:55 Stool Stool Lactoferrin - Final 07/14/18 14:55 Stool Stool Occult Blood (AVEL) - Final 07/14/18 08:30 Urine, Clean Catch Streptococcus pneumoniae Antigen (M - Final 07/14/18 08:30 Urine, Clean Catch Legionella Antigen - Final Clinical Impression(s) from Imaging Studies Chest X-Ray 07/14/18 09:10 IMPRESSION: Right lower lobe infiltrate. Stable increased markings at the left lung base. Code Visit Inpatient E&M: 02769 Subs Hosp L3
--- NOTE | 2018-07-15 10:25 | PN_ITS ---
Subjective: Temperature profile shows T-max 100.1 Fahrenheit last night. No shortness of breath or hypoxia. Respiratory rate 16. Respiratory panel positive of influenza A H1 and RSV-B Vitals/I&O's: Vital Signs Temp Pulse Resp BP Pulse Ox 98.3 F 80 16 107/67 96 07/15/18 09:11 07/15/18 09:11 07/15/18 09:11 07/15/18 09:11 07/15/18 09:11 Oxygen Delivery Method Room Air Weight: 203 lb 0.732 oz Body Mass Index (BMI) 26.7 Intake and Output for Last 24 Hours 07/13/18 07/14/18 07/15/18 23:59 23:59 23:59 Intake Total 1326 / 1326 1640 / 1640 Balance 1326 / 1326 1640 / 1640 General: Alert, Oriented x3, Cooperative HEENT: Atraumatic, PERRLA, EOMI, Normocephalic Neck: Supple, No JVD, Negative Carotid Bruits Lungs: Clear to auscultation, Normal air movement, No rhonchi, No wheeze, No rales Cardiovascular: Regular rate, Normal S1, Normal S2, No murmurs Abdomen: Bowel Sounds Present, Soft, Non Tender, Non-Distended Extremities: No edema, Capillary Refill Less than 3 Seconds Skin: No rashes, No breakdown Musculoskeletal: No Tenderness to Palpation of Joints or Extremities Neurological: Cranial nerves II-XII grossly intact Psych/Mental Status: Normal Affect, Appropriate Microbiology Past 72 Hours 07/14/18 13:22 Mucosa - Nasopharyngeal Respiratory Panel (PCR) - Final Influenza A (Subtype H1) RSV B 07/14/18 14:55 Stool Stool Lactoferrin - Final 07/14/18 14:55 Stool Stool Occult Blood (AVEL) - Final 07/14/18 08:30 Urine, Clean Catch Streptococcus pneumoniae Antigen (M - Final 07/14/18 08:30 Urine, Clean Catch Legionella Antigen - Final Laboratory Results 07/15/18 05:20: WBC 2.3 L, RBC 4.01 L, Hgb 13.7, Hct 40.6, MCV 101.2 H, MCH 34.2 H, MCHC 33.7, RDW 12.9, RDW Differential 47.3 H, Plt Count 105 L, MPV 10.0, Immature Gran % (Auto) 0.000, Neut % (Auto) 19.9 L, Lymph % (Auto) 57.3 H, [place] % (Auto) 22.0 H, Eos % (Auto) 0.4, Baso % (Auto) 0.4, Absolute Neuts (auto) 0.5 L, Absolute Lymphs (auto) 1.30, Total Counted Not Reportable 07/15/18 05:20: Sodium 142, Potassium 3.9, Chloride 110 H, Carbon Dioxide 23.0, Anion Gap 9, BUN 18, Creatinine 1.13, Estim Creat Clear Calc 77.58, Est GFR (MDRD) Af Amer 85, Est GFR (MDRD) Non-Af 70, BUN/Creatinine Ratio 15.9, Glucose 99, Calcium 7.7 L 07/15/18 05:20: Tacrolimus Pending Current Medications Acetaminophen (Tylenol) 650 mg PO Q4H PRN PRN PRN Reason: Fever/PAIN Last Admin: 07/14/18 22:06 Dose: 650 mg Acyclovir (Zovirax) 800 mg PO DAILY [facility] Last Admin: 07/15/18 08:45 Dose: Not Given Albuterol Sulfate (Ventolin Aerosols) 2.5 mg INHALATION Q2H PRN PRN PRN Reason: SHORTNESS OF BREATH Last Admin: 07/14/18 13:13 Dose: 2.5 mg Bisacodyl (Dulcolax) 10 mg RECTAL DAILY PRN PRN PRN Reason: Constipation Cholecalciferol (Vitamin D) 2,000 unit PO DAILY [facility] Last Admin: 07/15/18 08:44 Dose: Not Given Docusate Sodium (Colace) 200 mg PO BID PRN PRN PRN Reason: Constipation Famotidine (Pepcid) 20 mg PO BID [facility] Last Admin: 07/15/18 08:43 Dose: 20 mg Guaifenesin (Mucinex) 1,200 mg PO BID [facility] Last Admin: 07/15/18 08:43 Dose: 1,200 mg Sodium Chloride () 1,000 mls @ 100 mls/hr IV .Q10H [facility] Last Admin: 07/14/18 22:06 Dose: 100 mls/hr Azithromycin 500 mg/ Dextrose 255 mls @ 250 mls/hr IV Q24 [facility] Stop: 07/17/18 11:02 Ceftriaxone Sodium (Rocephin) 1 gm in 50 mls @ 100 mls/hr IV Q24 [facility] Last Admin: 07/15/18 09:51 Dose: 100 mls/hr Morphine Sulfate () 1 - 2 mg IV Q4H PRN PRN PRN Reason: SEVERE PAIN (6-10/10) Nutritional Formula (Lactose Free) (Ensure Enlive) 120 ml PO 4X/DAY [facility] Last Admin: 07/15/18 08:44 Dose: Not Given Ondansetron HCl (Zofran) 4 mg IV Q8H PRN PRN PRN Reason: NAUSEA Oseltamivir Phosphate (Tamiflu) 75 mg PO BID [facility] Stop: 07/19/18 10:01 Last Admin: 07/15/18 08:43 Dose: 75 mg Oxycodone HCl (Oxyir) 5 mg PO Q4H PRN PRN PRN Reason: Moderate Pain (pain scale 4-5) Polyethylene Glycol (Miralax) 17 gm PO DAILY [facility] Last Admin: 07/15/18 08:40 Dose: Not Given Sodium Chloride () 5 - 15 ml IV UD PRN PRN Reason: SALINE FLUSH Last Admin: 07/15/18 09:51 Dose: 10 ml Tacrolimus (Prograf) 2 mg PO BID [facility] Last Admin: 07/15/18 08:44 Dose: Not Given Trimethoprim/Sulfamethoxazole (Bactrim Ds) 1 tablet PO MoFr@0800 [facility] Trimethoprim/Sulfamethoxazole (Bactrim Ds) 1 tablet PO MoFr@1700 [facility] Last Admin: 07/14/18 18:10 Dose: 1 tablet Zolpidem Tartrate (Ambien (Generic)) 5 mg PO QHS PRN PRN PRN Reason: SLEEP Last Admin: 07/14/18 22:06 Dose: 5 mg Medical Necessity - Tobacco Use Smoking Status: Never smoker Assessment/Plan All Active Problems (Last Updated 02/22/18 @ 23:19 by Yuan Bear MD) Rhinovirus (Resolved) Subconjunctival bleed (Resolved) Community acquired pneumonia (Acute) The patient is a 62 year old M with history of MDS, 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 It is started with headache, feeling tired, and cough. Patient maintains temperature profile in the diary and shows temperature ranging from 99.2 -101.1 Fahrenheit about a week ago for last 6 days around 100 Fahrenheit. Patient also had loose bowel movement about 2 times daily for last 5 days. Denies abdominal pain. Patient is on Bactrim, antiviral phylaxis and tacrolimus after bone marrow transplant. Patient had similar URI symptoms and grandson about 2 weeks ago and his 10 days ago. In ED, chest x-ray shows right lower lobe infiltrate. In ED, UA is negative for pyuria and patient does not have lower urinary tract symptoms. Leukopenia, 2.3 thousand, ANC 900, platelet count 112,000. Patient has chronic thrombocytopenia and his platelet has been in range of 40,000 in the past. WBC was count was normal in February 2018. 1. Right lower lobe community-acquired pneumonia, most probably influenza A and RSV with possible bacterial superinfection in immunocompromised host and neutropenia: Patient is being admitted on regular MedSurg floor. Droplet precaution. Started on IV Rocephin and Zithromax. Urinary antigens are ordered. Blood cultures were ordered from ER. Respiratory panel ordered. Bronchodilator as needed. Mucinex and chest physiotherapy. 2. Myelodysplastic syndrome status post allogenic bone marrow transplantation: Continue Bactrim, acyclovir and tacrolimus. Tacrolimus level is pending. Dr. Hernandez consult reviewed and appreciated. Mild low-grade neutropenic fever. 3. Mild loose bowel movement: Does not meet the criteria of diarrhea as he does not have more than 3 BM per day. Patient does not meet criteria for C. difficile infection as he did not have more than 3 bowel movements per day.enteric bacteriology panel pending 4. DVT prophylaxis: Bilateral SCDs. Pharmacological prophylaxis contracted in view of thrombocytopenia. Microbiology Past 72 Hours 07/14/18 13:22 Mucosa - Nasopharyngeal Respiratory Panel (PCR) - Final Influenza A (Subtype H1) RSV B 07/14/18 14:55 Stool Stool Lactoferrin - Final 07/14/18 14:55 Stool Stool Occult Blood (AVEL) - Final 07/14/18 08:30 Urine, Clean Catch Streptococcus pneumoniae Antigen (M - Final 07/14/18 08:30 Urine, Clean Catch Legionella Antigen - Final Clinical Impression(s) from Imaging Studies Chest X-Ray 07/14/18 09:10 IMPRESSION: Right lower lobe infiltrate. Stable increased markings at the left lung base. Code Visit Inpatient E&M: 21516 Subs Hosp L3
--- NOTE | 2018-07-15 11:33 | PCM.PN.ID ---
Subjective: Feeling better, cough and fever improved. - Physical Exam General: Alert, Cooperative, No apparent distress Lungs: Clear to auscultation, Normal air movement Cardiovascular: Regular rate, Regular Rhythm Abdomen: Soft, Non Tender, Non-Distended Skin: No rashes Vital Signs Temp Pulse Resp BP Pulse Ox 98.3 F 80 16 107/67 96 07/15/18 09:11 07/15/18 09:11 07/15/18 09:11 07/15/18 09:11 07/15/18 09:11 Oxygen Delivery Method Room Air Weight: 92.1 kg Body Mass Index (BMI) 26.7 Intake and Output for Last 24 Hours 07/13/18 07/14/18 07/15/18 23:59 23:59 23:59 Intake Total 1326 / 1326 1640 / 1640 Balance 1326 / 1326 1640 / 1640 Microbiology Past 72 Hours 07/14/18 13:22 Respiratory Panel (PCR) - Final Mucosa - Nasopharyngeal Influenza A (Subtype H1) RSV B 07/14/18 14:55 Stool Lactoferrin - Final Stool 07/14/18 14:55 Stool Occult Blood (AVEL) - Final Stool 07/14/18 08:30 Streptococcus pneumoniae Antigen (M - Final Urine, Clean Catch 07/14/18 08:30 Legionella Antigen - Final Urine, Clean Catch Laboratory Tests Past 24 Hrs 07/15/18 07/15/18 07/15/18 05:20 05:20 05:20 WBC 2.3 L RBC 4.01 L Hgb 13.7 Hct 40.6 MCV 101.2 H MCH 34.2 H MCHC 33.7 RDW 12.9 RDW Differential 47.3 H Plt Count 105 L MPV 10.0 Immature Gran % (Auto) 0.000 Neut % (Auto) 19.9 L Lymph % (Auto) 57.3 H [place] % (Auto) 22.0 H Eos % (Auto) 0.4 Baso % (Auto) 0.4 Absolute Neuts (auto) 0.5 L Absolute Lymphs (auto) 1.30 Total Counted Not Reportable Sodium 142 Potassium 3.9 Chloride 110 H Carbon Dioxide 23.0 Anion Gap 9 BUN 18 Creatinine 1.13 Estim Creat Clear Calc 77.58 Est GFR (MDRD) Af Amer 85 Est GFR (MDRD) Non-Af 70 BUN/Creatinine Ratio 15.9 Glucose 99 Calcium 7.7 L Tacrolimus Pending Medical Necessity - Tobacco Use Smoking Status: Never smoker Route of nutrition/ use of supplements: [] Nutritional Intake: [] IV Site: [] Conner Catheter: [] - Assessment/Plan Antibiotics: [] Assessment/Plan: [] Flu A and RSV infection and ? CAP with prior allo SCT in 06/2017 for MDS - recent viral URI exposure. Cont azithro/ceftriaxone/tamiflu. Feeling better. ANC 500 this AM. No fever. Will follow, d/w Dr. Asif.
[2018-07-15 12:16] VITALS: BP 99/72; PULSE 80; RESP 16; TEMP 36.6; O2SAT 93
--- NOTE | 2018-07-15 13:02 | CASEMGMT ---
RN CM Assessment Presentation: Neutropenic fever in pt who is post bone marrow transplant 07/07. Rhinovirus, Hx of MDS. Intro role of CM and purpose of RN CM assessment to patient in room. He is sitting in chair and able to participate in RN CM Assessment. Pt states his grandchild was at their home and became ill. His also was ill and pt became ill shortly after. PCP: Dr. Zaki Sears Specialists: Dr. Hernandez Preferred Pharmacy: [facility] Pharmacy Insurance: [facility] [id number] Prescription Benefit: yes LNOK: Monserrat Biswas, Living Arrangements: Lives independently in own home. States he does not require any assistance at home. Transportation: drives or family can assist if needed. DME/HHC: none DC PLAN: Home on discharge. Primitivo HERNADEZ RN ACM
--- NOTE | 2018-07-15 13:35 | ONC.PN.INPT ---
- Problem List (1) MDS (myelodysplastic syndrome) Status: Chronic (2) S/P allogeneic bone marrow transplant Status: Chronic Subjective Date of Service:: 07/15/18 MDS status post BMT Mr. 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 Kathy Helton at the [facility]. 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 Thus he is maintained on tacrolimus, Bactrim on Mondays and Wednesdays and acyclovir twice daily daily. Immunizations provided by Dr. Helton on 04/29/2019 include DTaP, hep a hep B, Hib, IPV, pneumococcal vaccines and flu vaccine was given January 2018. The patient presented to emergency department 07/14/18 with complaints of generalized weakness, decreased appetite, fevers, diarrhea and occasional nonproductive cough times 1 week. Grandson and spouse at home with similar symptoms although their URI course lasted less than 3 days. Chest x-ray revealed right lower lobe infiltrate and he was subsequently admitted for management of pneumonia. Since visit yesterday patient has confirmed + Influenza A. Upon entering the room, patient is up right in chair. States I feel better citing improved appetite and decreased malaise. Has been ambulating in his room as much as possible. Past Medical History: Chronic Problems (Last Updated 02/22/18 @ 23:19 by Yuan Bear MD) S/P allogeneic bone marrow transplant (Chronic) MDS (myelodysplastic syndrome) (Chronic) Past Medical History - Most Recent Inpatient Visit Past Medical History Start: 07/14/18 10:50 Text: Status: Complete Freq: ONCE Protocol: Document 07/14/18 11:21 TDW (Rec: 07/14/18 11:28 TDW [id number]) BMI Required to complete PMH What is Patient's BMI 26.7 Neurologic Medical History Hx Stroke/TIA No Hx Dementia/Alzheimer's No Hx Parkinson's Disease No Hx Seizures Yes: 1991 NOCTURNAL Hx Multiple Sclerosis No Hx Migraines Yes: HX Cardiac Medical History VTE Present on Admission No Hx of Deep Vein Thrombosis/VTE/PE No Hx Hypertension No Hx Chest Pain/Angina No Hx Heart Attack No Hx Cardiac Surgery/Stents/Etc. No Hx Heart Failure No Hx Pacemaker/AICD No Hx Irregular Heartbeat and/or Afib No Hx Anticoagulant Therapy No Query Text:(Coumadin, Aspirin, Plavix, Xarelto, etc.) Hx Pain in Legs when Walking/Leg Cramps No Respiratory Medical History Hx COPD No Hx Emphysema No Hx Smoking No Smoking Status Never smoker Hx Tobacco Use in last 12 months No Hx Sleep Apnea No Do you snore loudly (louder than talking No or can be heard through closed doors)? Do you often feel tired/ fatigued/ No sleepy during daytime? Has anyone observed you stop breathing No during sleep? STOP Results Negative GI Medical History Hx Ulcer No Hx Hepatitis No Hx Cirrhosis No Hx GI Bleed No Hx Unplanned Weight Loss Yes Genitourinary Medical History Indwelling Catheter in Place on Arrival/ No Admission Hx Renal Disease No Hx Dialysis No Musculoskeletal History Hx Arthritis No Hx Rheumatoid Arthritis No Endocrine Medical History Hx Diabetes No Hx Thyroid Disease No Hematologic Medical History Hx of Blood Transfusion Yes Hx of Transfusion in last 3 Months No Ever experience any problems with No transfusion(s)? Hx of Preganancy in last 3 Months N/A Nurse Filling Out Transfusion & TWOLF Questions: Date: 07/14/18 Time: 11:24 Psycho/Social Medical History Hx Depression No Hx Anxiety No Hx Behavior Disorder No Hx Alcohol Use No Hx Substance Use No Other Medical History Hx Blood Disorders Yes: MDS Hx Anemia No Hx Cancer Yes: MDS S/P bone marrow transplant Hx Drug Resistant Organism No Wound/Pressure Injury Present on Arrival No /Admission Query Text:If yes, chart assessment in Shift/Clinical Findings Central Line/PICC/VAD Present on Arrival No /Admission Antibiotics within last 7 days? Yes Name of Antibiotic (Include dose/# days bactrium taken if known) Risk for Readmission Number of Risk Factors 4 At Risk for Readmission Patient is At Risk For Readmission Patient is eligible for Call Back Y Past Medical History (Last Updated 02/22/18 @ 23:19 by Yuan Bear MD) MDS (myelodysplastic syndrome) (Acute) Paternal Family History: Family History (Last Updated 02/22/18 @ 23:21 by Yuan Bear MD) Father Emphysema lung Sister Cancer Family History: No pertinent history - Blood related hemopoietic cancer/lymphoma in first-degree relative - Social History Smoking Status: Never smoker Review of Systems Constitutional:: Reports: Weakness, Fatigue, Appetite change - improving. Denies: Fever, Sweats, Weight loss, Chills Cardiovascular:: Denies: Chest pain, Palpitations, Dyspnea on exertion, Orthopnea, PND, Shortness of breath Respiratory: Reports: Cough - occasional, non productive. Denies: Hemoptysis, Shortness of Breath, Wheezing Gastrointestinal:: Denies: Abdominal pain, Nausea, Vomiting, Diarrhea, Constipation, Melena, Hematochezia Genitourinary: Denies: Dysuria, Hematuria, 15, Flank pain Musculoskeletal:: Denies: Back pain, Myalgia, Arthralgia Skin: Denies: Rash, Skin Changes, Wounds Neurological:: Denies: Headache, Dizziness, Numbness, Tingling, Visual changes, Tinnitus, Hearing loss Psychiatric: Denies: Anxiety, Depression, Homicidal Ideations, Suicidal Ideations Vital Signs Height 6 ft 1 in Weight: 203 lb 0.732 oz Weight in Pounds 203.0 lbs Pulse Ox 93 Temperature 97.8 F Pulse Rate 80 Respiratory Rate 16 Blood Pressure 99/72 Blood Pressure Position Sitting - Physical Exam General: Alert, Oriented x3, No apparent distress HEENT: Atraumatic, PERRLA, EOMI, Normocephalic, - - wears glasses Oropharynx:: Negative for: Dry mucosa, Ulcerated lesions Neck:: Supple, Trachea midline. Negative for: JVD, bilateral Cardiac:: Regular rate, Regular rhythm, Normal S1, Normal S2. Negative for: Murmur Lungs: Clear to auscultation, Excusion symmetrical. Negative for: Rhonchi, Wheezes Abdomen:: Bowel sounds x 4, Soft, Non-tender, Non-distended. Negative for: Hepatosplenomegaly Extremities:: Negative for: Cyanosis, Edema Neurological: Neuro grossly intact Skin:: Negative for: Lesions, Rash, Petechiae, Ecchymosis Psychiatric:: Appropriate affect, Euthymic Lymphatics:: Negative for: Cervical lymphadenopathy, Supraclavicular lymphadenopathy, Axillary lymphadenopathy Laboratory Data: Microbiology 07/14/18 14:55 Enteric Bacteriology - Final Stool 07/14/18 13:22 Respiratory Panel (PCR) - Final Mucosa - Nasopharyngeal Influenza A (Subtype H1) RSV B 07/14/18 14:55 Stool Lactoferrin - Final Stool 07/14/18 14:55 Stool Occult Blood (AVEL) - Final Stool 07/14/18 08:30 Streptococcus pneumoniae Antigen (M - Final Urine, Clean Catch 07/14/18 08:30 Legionella Antigen - Final Urine, Clean Catch Laboratory Tests 07/15/18 07/15/18 Range/Units 05:20 05:20 WBC 2.3 L (4.4-11.0) K/mm3 RBC 4.01 L (4.6-6.2) M/mm3 Hgb 13.7 (13.0-16.5) g/dl Hct 40.6 (40-54) % MCV 101.2 H (80-94) fL MCH 34.2 H (27.0-32.0) pg MCHC 33.7 (32-36) g/gl RDW 12.9 (11.6-14.6) % RDW Differential 47.3 H (35.1-43.9) fl Plt Count 105 L (150-450) K/mm3 MPV 10.0 (6.2-12.0) fl Immature Gran % (Auto) 0.000 (0.0-0.9) % Neut % (Auto) 19.9 L (47-70) % Lymph % (Auto) 57.3 H (19-41) % [place]lan % (Auto) 22.0 H (0-10) % Eos % (Auto) 0.4 (0-5) % Baso % (Auto) 0.4 (0-1) % Absolute Neuts (auto) 0.5 L (2.0-7.7) X10^3/uL Absolute Lymphs (auto) 1.30 (0.83-4.51) X10^3/ul Total Counted Not Reportable Sodium 142 (136-145) mmol/L Potassium 3.9 (3.5-5.1) mmol/L Chloride 110 H (98-107) mmol/L Carbon Dioxide 23.0 (21.0-32.0) mmol/L Anion Gap 9 (5-15) BUN 18 (7-18) mg/dL Creatinine 1.13 (0.70-1.30) mg/dL Estim Creat Clear Calc 77.58 ml/min Est GFR (MDRD) Af Amer 85 (>60) mL/min Est GFR (MDRD) Non-Af 70 (>60) mL/min BUN/Creatinine Ratio 15.9 (10-20) RATIO Glucose 99 (74-106) mg/dL Calcium 7.7 L (8.5-10.1) mg/dL Diagnostic Data: Diagnostic Data Chest X-Ray 07/14/18 09:10 IMPRESSION: Right lower lobe infiltrate. Stable increased markings at the left lung base. Electronically Signed: Thomas Barrow MD at 9:31 EST , Service support , Assessment and Plan 1. MDS- status post haploidentical BMT June 2017 under the care of Dr. Helton at the [facility]. CBC shows hemoglobin 13.7 platelets 105,000 and neutropenic as evidenced by an ANC of 500. On prophylaxis with acyclovir and also Bactrim Mondays and Fridays and maintained on tacrolimus. 2. Community-acquired pneumonia?with recent viral upper respiratory infection exposure. + for Influenza A. Followed by infectious disease. Will monitor CBC daily. Edel Wynn, MAG, [employer], AOCNP Medications: Prescriptions This Visit Medication Instructions Recorded Tacrolimus 2 mg PO BID 07/14/18 Medications Added to Medication List This Visit Category Date Time Status Acyclovir [Zovirax] Med 07/15/18 10:00 Active 800 mg PO DAILY Azithromycin [Zithromax] 500 mg Med 07/15/18 10:00 Active Dextrose 5% 250 ml IV Q24 Ceftriaxone [Rocephin] Med 07/15/18 10:00 Active 1 gm in 50 ml IV Q24 Cholecalciferol (VIT D3) [Vitamin D] Med 07/15/18 10:00 Active 2,000 unit PO DAILY Polyethylene Glycol 3350 [Miralax] Med 07/15/18 10:00 Active 17 gm PO DAILY Smz/Tmp Ds [Bactrim Ds] Med 07/18/18 08:00 Active 1 tablet PO MoFr@0800 Primary Care Provider: Zaki Sears MD Referring Provider:
--- NOTE | 2018-07-15 13:39 | PN_ITS ---
- Problem List (1) MDS (myelodysplastic syndrome) Status: Chronic (2) S/P allogeneic bone marrow transplant Status: Chronic Subjective Date of Service:: 07/15/18 MDS status post BMT Mr. Kloton Hilario is a very pleasant 62-year-old man with a past medical history positive for MDS status post haploidentical (daughter) BMT June 2017 under the care of Dr. Kathy Helton at the [facility]. 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 Thus he is maintained on tacrolimus, Bactrim on Mondays and Wednesdays and acyclovir twice daily daily. Immunizations provided by Dr. Helton on 04/29/2019 include DTaP, hep a hep B, Hib, IPV, pneumococcal vaccines and flu vaccine was given January 2018. The patient presented to emergency department 07/14/18 with complaints of generalized weakness, decreased appetite, fevers, diarrhea and occasional nonproductive cough times 1 week. Grandson and spouse at home with similar symptoms although their URI course lasted less than 3 days. Chest x-ray revealed right lower lobe infiltrate and he was subsequently admitted for management of pneumonia. Since visit yesterday patient has confirmed + Influenza A. Upon entering the room, patient is up right in chair. States I feel better citing improved appetite and decreased malaise. Has been ambulating in his room as much as pos sible. Past Medical History: Chronic Problems (Last Updated 02/22/18 @ 23:19 by Yuan Bear MD) S/P allogeneic bone marrow transplant (Chronic) MDS (myelodysplastic syndrome) (Chronic) Past Medical History - Most Recent Inpatient Visit Past Medical History Start: 07/14/18 10:50 Text: Status: Complete Freq: ONCE Protocol: Document 07/14/18 11:21 TDW (Rec: 07/14/18 11:28 TDW [id number]) BMI Required to complete PMH What is Patient's BMI 26.7 Neurologic Medical History Hx Stroke/TIA No Hx Dementia/Alzheimer's No Hx Parkinson's Disease No Hx Seizures Yes: 1991 NOCTURNAL Hx Multiple Sclerosis No Hx Migraines Yes: HX Cardiac Medical History VTE Present on Admission No Hx of Deep Vein Thrombosis/VTE/PE No Hx Hypertension No Hx Chest Pain/Angina No Hx Heart Attack No Hx Cardiac Surgery/Stents/Etc. No Hx Heart Failure No Hx Pacemaker/AICD No Hx Irregular Heartbeat and/or Afib No Hx Anticoagulant Therapy No Query Text:(Coumadin, Aspirin, Plavix, Xarelto, etc.) Hx Pain in Legs when Walking/Leg Cramps No Respiratory Medical History Hx COPD No Hx Emphysema No Hx Smoking No Smoking Status Never smoker Hx Tobacco Use in last 12 months No Hx Sleep Apnea No Do you snore loudly (louder than talking No or can be heard through closed doors)? Do you often feel tired/ fatigued/ No sleepy during daytime? Has anyone observed you stop breathing No during sleep? STOP Results Negative GI Medical History Hx Ulcer No Hx Hepatitis No Hx Cirrhosis No Hx GI Bleed No Hx Unplanned Weight Loss Yes Genitourinary Medical History Indwelling Catheter in Place on Arrival/ No Admission Hx Renal Disease No Hx Dialysis No Musculoskeletal History Hx Arthritis No Hx Rheumatoid Arthritis No Endocrine Medical History Hx Diabetes No Hx Thyroid Disease No Hematologic Medical History Hx of Blood Transfusion Yes Hx of Transfusion in last 3 Months No Ever experience any problems with No transfusion(s)? Hx of Preganancy in last 3 Months N/A Nurse Filling Out Transfusion & TWOLF Questions: Date: 07/14/18 Time: 11:24 Psycho/Social Medical History Hx Depression No Hx Anxiety No Hx Behavior Disorder No Hx Alcohol Use No Hx Substance Use No Other Medical History Hx Blood Disorders Yes: MDS Hx Anemia No Hx Cancer Yes: MDS S/P bone marrow transplant Hx Drug Resistant Organism No Wound/Pressure Injury Present on Arrival No /Admission Query Text:If yes, chart assessment in Shift/Clinical Findings Central Line/PICC/VAD Present on Arrival No /Admission Antibiotics within last 7 days? Yes Name of Antibiotic (Include dose/# days bactrium taken if known) Risk for Readmission Number of Risk Factors 4 At Risk for Readmission Patient is At Risk For Readmission Patient is eligible for Call Back Y Past Medical History (Last Updated 02/22/18 @ 23:19 by Yuan Bear MD) MDS (myelodysplastic syndrome) (Acute) Paternal Family History: Family History (Last Updated 02/22/18 @ 23:21 by Yuan Bear MD) Father Emphysema lung Sister Cancer Family History: No pertinent history - Blood related hemopoietic cancer/lymphoma in first-degree relative - Social History Smoking Status: Never smoker Review of Systems Constitutional:: Reports: Weakness, Fatigue, Appetite change - improving. Denies: Fever, Sweats, Weight loss, Chills Cardiovascular:: Denies: Chest pain, Palpitations, Dyspnea on exertion, Orthopnea, PND, Shortness of breath Respiratory: Reports: Cough - occasional, non productive. Denies: Hemoptysis, Shortness of Breath, Wheezing Gastrointestinal:: Denies: Abdominal pain, Nausea, Vomiting, Diarrhea, Constipation, Melena, Hematochezia Genitourinary: Denies: Dysuria, Hematuria, 15, Flank pain Musculoskeletal:: Denies: Back pain, Myalgia, Arthralgia Skin: Denies: Rash, Skin Changes, Wounds Neurological:: Denies: Headache, Dizziness, Numbness, Tingling, Visual changes, Tinnitus, Hearing loss Psychiatric: Denies: Anxiety, Depression, Homicidal Ideations, Suicidal Tru ations Vital Signs Height 6 ft 1 in Weight: 203 lb 0.732 oz Weight in Pounds 203.0 lbs Pulse Ox 93 Temperature 97.8 F Pulse Rate 80 Respiratory Rate 16 Blood Pressure 99/72 Blood Pressure Position Sitting - Physical Exam General: Alert, Oriented x3, No apparent distress HEENT: Atraumatic, PERRLA, EOMI, Normocephalic, - - wears glasses Oropharynx:: Negative for: Dry mucosa, Ulcerated lesions Neck:: Supple, Trachea midline. Negative for: JVD, bilateral Cardiac:: Regular rate, Regular rhythm, Normal S1, Normal S2. Negative for: Murmur Lungs: Clear to auscultation, Excusion symmetrical. Negative for: Rhonchi, Wheezes Abdomen:: Bowel sounds x 4, Soft, Non-tender, Non-distended. Negative for: Hepatosplenomegaly Extremities:: Negative for: Cyanosis, Edema Neurological: Neuro grossly intact Skin:: Negative for: Lesions, Rash, Petechiae, Ecchymosis Psychiatric:: Appropriate affect, Euthymic Lymphatics:: Negative for: Cervical lymphadenopathy, Supraclavicular lymphadenopathy, Axillary lymphadenopathy Laboratory Data: Microbiology 07/14/18 14:55 Enteric Bacteriology - Final Stool 07/14/18 13:22 Respiratory Panel (PCR) - Final Mucosa - Nasopharyngeal Influenza A (Subtype H1) RSV B 07/14/18 14:55 Stool Lactoferrin - Final Stool 07/14/18 14:55 Stool Occult Blood (AVEL) - Final Stool 07/14/18 08:30 Streptococcus pneumoniae Antigen (M - Final Urine, Clean Catch 07/14/18 08:30 Legionella Antigen - Final Urine, Clean Catch Laboratory Tests 07/15/18 07/15/18 Range/Units 05:20 05:20 WBC 2.3 L (4.4-11.0) K/mm3 RBC 4.01 L (4.6-6.2) M/mm3 Hgb 13.7 (13.0-16.5) g/dl Hct 40.6 (40-54) % MCV 101.2 H (80-94) fL MCH 34.2 H (27.0-32.0) pg MCHC 33.7 (32-36) g/gl RDW 12.9 (11.6-14.6) % RDW Differential 47.3 H (35.1-43.9) fl Plt Count 105 L (150-450) K/mm3 MPV 10.0 (6.2-12.0) fl Immature Gran % (Auto) 0.000 (0.0-0.9) % Neut % (Auto) 19.9 L (47-70) % Lymph % (Auto) 57.3 H (19-41) % [place] % (Auto) 22.0 H (0-10) % Eos % (Auto) 0.4 (0-5) % Baso % (Auto) 0.4 (0-1) % Absolute Neuts (auto) 0.5 L (2.0-7.7) X10^3/uL Absolute Lymphs (auto) 1.30 (0.83-4.51) X10^3/ul Total Counted Not Reportable Sodium 142 (136-145) mmol/L Potassium 3.9 (3.5-5.1) mmol/L Chloride 110 H (98-107) mmol/L Carbon Dioxide 23.0 (21.0-32.0) mmol/L Anion Gap 9 (5-15) BUN 18 (7-18) mg/dL Creatinine 1.13 (0.70-1.30) mg/dL Estim Creat Clear Calc 77.58 ml/min Est GFR (MDRD) Af Amer 85 (>60) mL/min Est GFR (MDRD) Non-Af 70 (>60) mL/min BUN/Creatinine Ratio 15.9 (10-20) RATIO Glucose 99 (74-106) mg/dL Calcium 7.7 L (8.5-10.1) mg/dL Diagnostic Data: Diagnostic Data Chest X-Ray 07/14/18 09:10 IMPRESSION: Right lower lobe infiltrate. Stable increased markings at the left lung base. Electronically Signed: Thomas Barrow MD at 9:31 EST , Service support , Assessment and Plan 1. MDS- status post haploidentical BMT June 2017 under the care of Dr. Helton at the [facility]. CBC shows hemoglobin 13.7 platelets 105,000 and neutropenic as evidenced by an ANC of 500. On prophylaxis with acyclovir and also Bactrim Mondays and Fridays and maintained on tacrolimus. 2. Community-acquired pneumonia?with recent viral upper respiratory infection exposure. + for Influenza A. Followed by infectious disease. Will monitor CBC daily. Edel Wynn, MSN, [employer], AOCNP Medications: Prescriptions This Visit Medication Instructions Recorded Tacrolimus 2 mg PO BID 07/14/18 Medications Added to Medication List This Visit Category Date Time Status Acyclovir [Zovirax] Med 07/15/18 10:00 Active 800 mg PO DAILY Azithromycin [Zithromax] 500 mg Med 07/15/18 10:00 Active Dextrose 5% 250 ml IV Q24 Ceftriaxone [Rocephin] Med 07/15/18 10:00 Active 1 gm in 50 ml IV Q24 Cholecalciferol (VIT D3) [Vitamin D] Med 07/15/18 10:00 Active 2,000 unit PO DAILY Polyethylene Glycol 3350 [Miralax] Med 07/15/18 10:00 Active 17 gm PO DAILY Smz/Tmp Ds [Bactrim Ds] Med 07/18/18 08:00 Active 1 tablet PO MoFr@0800 Primary Care Provider: Zaki Sears MD Referring Provider:
[2018-07-15 15:29] VITALS: BP 104/69; PULSE 78; RESP 16; TEMP 36.6; O2SAT 94
[2018-07-15] MEDS: Acetaminophen 325 MG Tablet 650 MG PO (20:12)
[2018-07-15 20:21] VITALS: BP 120/71; PULSE 75; RESP 18; TEMP 36.9; O2SAT 92
[2018-07-15] MEDS: 0.9% Normal Saline 1,000 ML 100 ML IV (21:55)
[2018-07-15] MEDS: Acyclovir 800 MG Tablet PO (22:24)
[2018-07-15] MEDS: Tacrolimus Anhydrous 1 MG Capsule 2 MG PO (22:24)
[2018-07-15] MEDS: Zolpidem Tartrate 5 MG Tablet PO (22:35)
[2018-07-16] MEDS: 0.9% Normal Saline 1,000 ML 100 ML IV (06:30)
[2018-07-16 06:31] VITALS: BP 117/74; PULSE 77; RESP 18; TEMP 36.8; O2SAT 92
[2018-07-16 06:32] LABS: Absolute Lymphocyte Count 1.06 X10^3/ul (0.83-4.51); Absolute Neutrophil Count 0.8 X10^3/uL (2.0-7.7); Basophil# 0.02 X10^3/uL; Basophil% 0.8 % (0-1); Eosinophil# 0.02 X10^3/uL; Eosinophils% 0.8 % (0-5); Hematocrit 39.6 % (40-54); Hemoglobin 13.4 g/dl (13.0-16.5); Lymphocyte # 1.06 X10^3/ul (4.0); Lymphocyte % 44.5 % (19-41); Mean Corp Hgb Conc 33.8 g/gl (32-36); Mean Corpuscular Hgb 34.4 pg (27.0-32.0); Mean Corpuscular Volume 101.5 fL (80-94); Mean Platelet Vol. 9.8 fl (6.2-12.0); Monocyte# 0.52 X10^3/uL; Monocyte% 21.8 % (0-10); Neutrophil # 0.76 X10^3/uL (2.7-7.7); Neutrophil % 32.1 % (47-70); Platelet Count 105 K/mm3 (150-450); RBC Distribution Width CV 12.9 % (11.6-14.6); RBC Distribution Width SD 47.6 fl (35.1-43.9); White Blood Count 2.4 K/mm3 (4.4-11.0)
[2018-07-16 06:42] LABS: Differential Indicated SCAN CRITERIA MET; Magnesium 1.7 mg/dL (1.6-2.6); POSITIVE COUNT NO; POSITIVE DIFFERENTIAL YES; POSITIVE MORPHOLOGY NO
[2018-07-16 07:38] VITALS: O2SAT 92
[2018-07-16 08:07] VITALS: BP 119/79; PULSE 80; RESP 16; TEMP 36.4; O2SAT 94
--- NOTE | 2018-07-16 09:22 | PCM.DC ---
- Discharge Diagnoses Current Active Problems: Current Active and Chronic Problems S/P allogeneic bone marrow transplant (Chronic) You will use the following diet at home:: Regular Your food should be the consistency of: Regular Discharge Activity: May Not Drive - for 1 week Call your doctor if you observe: Fever of 101 or Higher, Coldness, Increased Pain, Numbness or Tingling, Inability to urinate, Inability to have a bowel movement, Chest pain Additional Instructions: Follow up [facility] Helton at [facility] Allergies/Adverse Reactions: Allergies Penicillins Adverse Reaction (Unknown, Verified 07/14/18 08:00) Other states had blood from bowel after pcn Medications to take at Discharge Acyclovir 800 mg PO BID 02/22/18 Calcium Citrate 950 mg PO BID 02/22/18 Cholecalciferol (Vitamin D3) [Vitamin D3] 2,000 unit PO DAILY 02/22/18 Magnesium 266 mg PO TID 02/22/18 Sulfamethoxazole/Trimethoprim [Sulfamethoxazole-Tmp Ds Tablet] 1 each PO BID 02/22/18 Tacrolimus 2 mg PO BID 07/14/18 Guaifenesin [Mucinex] 1,200 mg PO BID #14 tablet 07/16/18 Oseltamivir Phosphate [Tamiflu] 75 mg PO BID #6 capsule 07/16/18 The following prescriptions were given: Guaifenesin [Mucinex] 1,200 mg PO BID #14 tablet Oseltamivir Phosphate [Tamiflu] 75 mg PO BID #6 capsule Primary Care Physician: Zaki Sears MD [Primary Care Provider] - Please follow up with your Primary Care Physician in: IN 1-2 WEEK Test Results: Test results from this visit will be discussed in further detail at your follow-up appointment, if applicable. Please Follow Up With: Yuan Hernandez MD When: IN 2-3 WEEK
--- NOTE | 2018-07-16 09:25 | DCINST_ITS ---
- Discharge Diagnoses Current Active Problems: Current Active and Chronic Problems S/P allogeneic bone marrow transplant (Chronic) You will use the following diet at home:: Regular Your food should be the consistency of: Regular Discharge Activity: May Not Drive - for 1 week Call your doctor if you observe: Fever of 101 or Higher, Coldness, Increased Pain, Numbness or Tingling, Inability to urinate, Inability to have a bowel movement, Chest pain Additional Instructions: Follow up Dr. Helton at [facility] Allergies/Adverse Reactions: Allergies Penicillins Adverse Reaction (Unknown, Verified 07/14/18 08:00) Other states had blood from bowel after pcn Medications to take at Discharge Acyclovir 800 mg PO BID 02/22/18 Calcium Citrate 950 mg PO BID 02/22/18 Cholecalciferol (Vitamin D3) [Vitamin D3] 2,000 unit PO DAILY 02/22/18 Magnesium 266 mg PO TID 02/22/18 Sulfamethoxazole/Trimethoprim [Sulfamethoxazole-Tmp Ds Tablet] 1 each PO BID 02/22/18 Tacrolimus 2 mg PO BID 07/14/18 Guaifenesin [Mucinex] 1,200 mg PO BID #14 tablet 07/16/18 Oseltamivir Phosphate [Tamiflu] 75 mg PO BID #6 capsule 07/16/18 The following prescriptions were given: Guaifenesin [Mucinex] 1,200 mg PO BID #14 tablet Oseltamivir Phosphate [Tamiflu] 75 mg PO BID #6 capsule Primary Care Physician: Zaki Sears MD [Primary Care Provider] - Please follow up with your Primary Care Physician in: IN 1-2 WEEK Test Results: Test results from this visit will be discussed in further detail at your follow- up appointment, if applicable. Please Follow Up With: Yuan Hernandez MD When: IN 2-3 WEEK
--- NOTE | 2018-07-16 09:25 | PCM.DC.SUM ---
Discharge Date and Diagnosis Date of Admission: 07/14/18 Date of Discharge: 07/16/18 - Secondary Discharge Diagnosis Chronic Problems (Last Updated 02/22/18 @ 23:19 by Yuan Bear MD) S/P allogeneic bone marrow transplant (Chronic) MDS (myelodysplastic syndrome) (Chronic) Hospital Course and Treatment Operations: None Summary of Care Provided: [] The patient is a 62 year old M with history of MDS, 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 It is started with headache, feeling tired, and cough. Patient maintains temperature profile in the diary and shows temperature ranging from 99.2 -101.1 Fahrenheit about a week ago for last 6 days around 100 Fahrenheit. Patient also had loose bowel movement about 2 times daily for last 5 days. Denies abdominal pain. Patient is on Bactrim, antiviral phylaxis and tacrolimus after bone marrow transplant. Patient had similar URI symptoms and grandson about 2 weeks ago and his 10 days ago. In ED, chest x-ray shows right lower lobe infiltrate. In ED, UA is negative for pyuria and patient does not have lower urinary tract symptoms. Leukopenia, 2.3 thousand, ANC 900, platelet count 112,000. Patient has chronic thrombocytopenia and his platelet has been in range of 40,000 in the past. WBC was count was normal in February 2018. 1. Right lower lobe viral community-acquired pneumonia, most probably influenza A and RSV with concern bacterial superinfection in immunocompromised host and neutropenia: Patient is being admitted on regular MedSurg floor. Droplet precaution. Started on IV Rocephin and Zithromax. Urinary antigens were negative. Blood cultures negative for 48 hours. Respiratory reported positive H1 influenza A, RSV B. Bronchodilator as needed. Mucinex and chest physiotherapy. Patient was started on Tamiflu yesterday. Patient given his prescription for Tamiflu, Mucinex. Patient was seen by ID who recommended to continue Bactrim DS twice weekly and acyclovir. Follow-up chest x-ray in 3 weeks to be ordered and followed by PCP. 2. Myelodysplastic syndrome status post allogenic bone marrow transplantation: Continue Bactrim, acyclovir and tacrolimus. Tacrolimus level is pending. Dr. Hernandez consult reviewed and appreciated. Mild low-grade neutropenic fever. Fever resolved. 3. Mild loose bowel movement: Does not meet the criteria of diarrhea as he does not have more than 3 BM per day. Patient does not meet criteria for C. difficile infection as he did not have more than 3 bowel movements per day.enteric bacteriology panel negative. 4. DVT prophylaxis: Bilateral SCDs. Pharmacological prophylaxis contracted in view of thrombocytopenia. Discharge medication reconciliation done. Discharge follow-up instructions completed. Discharge process discussed with the patient and all questions were answered to patient's satisfaction.. Total time spent, exact 35 minutes on discharge meds reconciliation, examination, review of imaging and blood test and discussion with the patient on follow-up instructions. Subjective: Patient did not had fever or chills for about 36 hours. Patient is feeling a strong. Cough has gotten better. Wants to go home. - Physical Exam General: Alert, Oriented x3, Cooperative HEENT: Atraumatic, PERRLA, EOMI, Normocephalic Neck: Supple, No JVD, Negative Carotid Bruits Lungs: Clear to auscultation, Normal air movement, No rhonchi, No wheeze, No rales, - - No hypoxia or tachypnea. Cardiovascular: Regular rate, Regular Rhythm, Normal S1, Normal S2, No murmurs, - Abdomen: Bowel Sounds Present, Soft, Non Tender, Non-Distended, No Hepato-splenomegaly Extremities: No edema, Capillary Refill Less than 3 Seconds Skin: No rashes, No breakdown Musculoskeletal: No Tenderness to Palpation of Joints or Extremities Neurological: Cranial nerves II-XII grossly intact, Deep Tendon Reflexes 2+/4 and Symmetrical, Neuro grossly intact Psych/Mental Status: Normal Affect, Appropriate Vital Signs Temp Pulse Resp BP Pulse Ox 97.5 F L 80 16 119/79 94 07/16/18 08:07 07/16/18 08:07 07/16/18 08:07 07/16/18 08:07 07/16/18 08:07 Oxygen Delivery Method Room Air Weight: 203 lb 0.732 oz Body Mass Index (BMI) 26.7 Intake and Output for Last 24 Hours 07/14/18 07/15/18 07/16/18 23:59 23:59 23:59 Intake Total 1326 / 1326 4226 / 4226 2108 / 2108 Balance 1326 / 1326 4226 / 4226 2107 Microbiology Past 72 Hours 07/14/18 14:55 Enteric Bacteriology - Final Stool 07/14/18 13:22 Respiratory Panel (PCR) - Final Mucosa - Nasopharyngeal Influenza A (Subtype H1) RSV B 07/14/18 14:55 Stool Lactoferrin - Final Stool 07/14/18 14:55 Stool Occult Blood (AVEL) - Final Stool 07/14/18 08:30 Streptococcus pneumoniae Antigen (M - Final Urine, Clean Catch 07/14/18 08:30 Legionella Antigen - Final Urine, Clean Catch Laboratory Tests Past 24 Hrs 07/16/18 07/16/18 05:58 05:58 WBC 2.4 L RBC 3.90 L Hgb 13.4 Hct 39.6 L MCV 101.5 H MCH 34.4 H MCHC 33.8 RDW 12.9 RDW Differential 47.6 H Plt Count 105 L MPV 9.8 Immature Gran % (Auto) 0.000 Neut % (Auto) 32.1 L Lymph % (Auto) 44.5 H [place] % (Auto) 21.8 H Eos % (Auto) 0.8 Baso % (Auto) 0.8 Absolute Neuts (auto) 0.8 L Absolute Lymphs (auto) 1.06 Total Counted Not Reportable Magnesium 1.7 Discharge Activity: May Not Drive - for 3-4 days Call your doctor if you observe: Fever of 101 or Higher, Coldness, Increased Pain, Numbness or Tingling, Inability to urinate, Inability to have a bowel movement, Chest pain Home Medications: Medications to take at Discharge Acyclovir 800 mg PO BID 02/22/18 Calcium Citrate 950 mg PO BID 02/22/18 Cholecalciferol (Vitamin D3) [Vitamin D3] 2,000 unit PO DAILY 02/22/18 Magnesium 266 mg PO TID 02/22/18 Sulfamethoxazole/Trimethoprim [Sulfamethoxazole-Tmp Ds Tablet] 1 each PO BID 02/22/18 Tacrolimus 2 mg PO BID 07/14/18 Guaifenesin [Mucinex] 1,200 mg PO BID #14 tablet 07/16/18 Oseltamivir Phosphate [Tamiflu] 75 mg PO BID #6 capsule 07/16/18 Following Prescrptions Were Given to Patient: Guaifenesin [Mucinex] 1,200 mg PO BID #14 tablet Oseltamivir Phosphate [Tamiflu] 75 mg PO BID #6 capsule Primary Care Physician: Zaki Sears MD [Primary Care Provider] - Please follow up with your Primary Care Physician in: IN 1-2 WEEK Please Follow Up With: Yuan Hernandez MD When: IN 2-3 WEEK Medical Necessity - Tobacco Use Smoking Status: Never smoker Meaningful Use Info Meaningful Use Diagnoses (Choose all that apply): None applicable Code Visit Inpatient E&M: 19630 Disch Hosp
[2018-07-16] MEDS: Tacrolimus Anhydrous 1 MG Capsule 2 MG PO (10:22)
[2018-07-16] MEDS: Ceftriaxone 1 GM/50 ML BAG IV (10:22)
[2018-07-16] MEDS: 0.9% NaCl Peripheral Flush Adult/Peds IV ×2 (10:22→10:28)
[2018-07-16] MEDS: Oseltamivir Phosphate 75 MG Capsule PO (10:23)
[2018-07-16] MEDS: guaiFENesin 1,200 MG Tablet 1200 MG PO (10:23)
[2018-07-16] MEDS: Famotidine 20 MG Tablet PO (10:23)
[2018-07-16] MEDS: Acyclovir 800 MG Tablet PO (11:05)
[2018-07-16 12:09] VITALS: BP 105/73; PULSE 80; RESP 18; TEMP 36.4; O2SAT 95
--- NOTE | 2018-07-16 13:39 | PCM.PN.ID ---
Subjective: Much improved, some dry cough, no fever, no SOB, no n/v/d. - Physical Exam General: Alert, Cooperative, No apparent distress Lungs: Clear to auscultation, Normal air movement Cardiovascular: Regular rate, Regular Rhythm Abdomen: Soft, Non Tender, Non-Distended Skin: No rashes Vital Signs Temp Pulse Resp BP Pulse Ox 97.6 F L 80 18 105/73 95 07/16/18 12:09 07/16/18 12:09 07/16/18 12:09 07/16/18 12:09 07/16/18 12:09 Oxygen Delivery Method Room Air Weight: 92.1 kg Body Mass Index (BMI) 26.7 Intake and Output for Last 24 Hours 07/14/18 07/15/18 07/16/18 23:59 23:59 23:59 Intake Total 1326 / 1326 4226 / 4226 2108 / 2108 Balance 1326 / 1326 4226 / 4226 2108 / 2108 Microbiology Past 72 Hours 07/14/18 08:32 Blood Culture - Preliminary Blood Culture (Wb) #2 - Anticubital Left No growth in 48 hours. 07/14/18 14:55 Enteric Bacteriology - Final Stool 07/14/18 13:22 Respiratory Panel (PCR) - Final Mucosa - Nasopharyngeal Influenza A (Subtype H1) RSV B 07/14/18 14:55 Stool Lactoferrin - Final Stool 07/14/18 14:55 Stool Occult Blood (AVEL) - Final Stool 07/14/18 08:30 Streptococcus pneumoniae Antigen (M - Final Urine, Clean Catch 07/14/18 08:30 Legionella Antigen - Final Urine, Clean Catch Laboratory Tests Past 24 Hrs 07/16/18 07/16/18 05:58 05:58 WBC 2.4 L RBC 3.90 L Hgb 13.4 Hct 39.6 L MCV 101.5 H MCH 34.4 H MCHC 33.8 RDW 12.9 RDW Differential 47.6 H Plt Count 105 L MPV 9.8 Immature Gran % (Auto) 0.000 Neut % (Auto) 32.1 L Lymph % (Auto) 44.5 H [place] % (Auto) 21.8 H Eos % (Auto) 0.8 Baso % (Auto) 0.8 Absolute Neuts (auto) 0.8 L Absolute Lymphs (auto) 1.06 Total Counted Not Reportable Magnesium 1.7 Medical Necessity - Tobacco Use Smoking Status: Never smoker Route of nutrition/ use of supplements: [] Nutritional Intake: [] IV Site: [] Conner Catheter: [] - Assessment/Plan Antibiotics: [] Assessment/Plan: [] Flu A and RSV infection with prior allo SCT in 06/2017 for MDS - recent viral URI exposure. Has been on azithro/ceftriaxone/tamiflu. Feeling better. No fever, lungs clear. Ok for 3 more days of tamiflu after discharge. Recommend repeat cxr in 2-3 weeks. Will follow
--- NOTE | 2018-07-16 14:43 | NURSING ---
student nurse Katelyn's charting reviewed for education learning purposes by beverly
== END 2018-07-16 13:53 | disposition home or self-care (01) | DRG 194 ==
LOC: ED 08:18 → MS3 11:01
PROVIDERS: Admitting Provider Internal Medicine; Emergency Provider Emergency Medicine; Family Provider Family Medicine; PCP Family Medicine; Visit Provider Internal Medicine
DX: J10.01 Influenza due to other identified influenza virus with the same other identified influenza virus pneumonia (principal); Z94.81 Bone marrow transplant status; J10.08 Influenza due to other identified influenza virus with other specified pneumonia; J12.1 Respiratory syncytial virus pneumonia; D46.9 Myelodysplastic syndrome, unspecified; Z79.899 Other long term (current) drug therapy; D70.9 Neutropenia, unspecified; R50.81 Fever presenting with conditions classified elsewhere; Z87.01 Personal history of pneumonia (recurrent); D69.6 Thrombocytopenia, unspecified
CPT/HCPCS: 36415; 71046; 80048; 80053; 80197; 81001; 82274; 83605; 83630; 83735; 85025; 87040; 87449; 87506; 87633; 94640; 94667; 94668; 97802; 99282; J7030; J7050; A4216

== ENCOUNTER 2018-10-22 08:12 | Emergency (ER) | payer OTHER, SELFPAY ==
[2018-07-14 11:21] VITALS: BMI 26.7
[2018-10-22 08:12] VITALS: BP 123/64; PULSE 105; RESP 17; TEMP 37.3; O2SAT 94; BMI 27.8
--- NOTE | 2018-10-22 08:24 | RAD_ITS ---
STUDY: X-RAY CHEST REASON FOR EXAM: Male, 63 years old. Copy and fever. History of prior bone marrow transplantation. TECHNIQUE: PA and lateral views of the chest. COMPARISON: Comparison is made with prior study dated July 14, 2018. FINDINGS: EKG electrodes are seen. New increased markings in the lingular segment of the left upper lobe suggestive of early infiltrate. Stable increased markings at the right lung base. There is no demonstrated pleural abnormality. Normal size heart. Normal mediastinum and ofelia. Normal visualized pulmonary arteries. Normal visualized aortic arch and descending thoracic aorta. There are degenerative changes of the visualized thoracic spine. Normal visualized ribs, clavicles, and shoulders. There is no demonstrated abnormality of the visualized soft tissue structures of the upper abdomen. RAD/Chest PA and Lateral IMPRESSION: Findings suggestive of new lingular infiltrate. Follow-up is recommended. Electronically Signed: Thomas Barrow, at 9:37 EDT , Service support ,
--- NOTE | 2018-10-22 08:27 | ED.VIS.GEN ---
History of Present Illness Chief Complaint: Fever Detail of Chief Complaint: Fatigue, upper respiratory symptoms and fever Informant: Patient Onset: Days - Onset of illness Saturday. Increased fatigue Saturday. Fever last evening to 101.0 ?F. Patient reported increased fatigue yesterday and left work after 4 hours. 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 He presents with increased fatigue, respiratory symptoms and T-max of 101.0 ?F. He reports temperature of 100.0 ?F this morning. He does complain of headache. Headache is global. He does report nasal congestion. He reports slight sore throat. He denies neck pain or neck stiffness. His cough is nonproductive. He denies chest discomfort. He denies history of PE or DVT. He denies GI or symptoms. He has not noted a rash. He complains of left knee pain, which is chronic. He states he was exposed to a coworker who was ill with respiratory symptoms. Prior similar symptoms: Yes Recent Illness/Hospitalization: No - Past Medical History (1) MDS (myelodysplastic syndrome) Status: Chronic (2) S/P allogeneic bone marrow transplant Status: Chronic Past Medical History - Allergies and Home Meds Allergies/Adverse Reactions: Allergies Penicillins Adverse Reaction (Unknown, Verified 10/22/18 08:12) Other states had blood from bowel after pcn Primary Care Physician: Zaki Sears MD [Primary Care Provider] - Prior records reviewed: Yes Surgical History: - - Three left knee surgeries. Lives: Spouse/ Significant Other Smoking Status: Never smoker Alcohol: None Drugs: None - Family History Paternal Family History: Family History (Last Updated 02/22/18 @ 23:21 by Yuan Bear MD) Father Emphysema lung Sister Cancer Family History: Reports: No pertinent history - Blood related hemopoietic cancer/lymphoma in first-degree relative Review of Systems General: Reports: Chills, Fever, Malaise, Subjective, Sweats. Denies: Weight loss Eyes: Denies: Visual changes - bilaterally, Blurred Vision - bilaterally ENT: Reports: Rhinorrhea, Sore throat. Denies: Bilateral ear pain Cardiovascular: Denies: Chest pain, Palpitations, Heart racing Respiratory: Reports: Dyspnea, Cough, Dyspnea on exertion. Denies: Sputum, Orthopnea, Paroxysmal nocturnal dyspnea Gastrointestinal: Denies: Abdominal pain, Nausea, Vomiting, Diarrhea, Melena, Hematochezia Genitourinary: Denies: Dysuria, Hematuria, Frequency Musculoskeletal: Denies: Myalgias, Arthralgias, Neck pain, Back pain, Swelling, Extremity Pain Skin: Denies: Rash, Wounds Neurological: Reports: Headache. Denies: Weakness, Parasthesia, Numbness, -, - Hematologic: Denies: Easy bruising, Easy bleeding Allergy: Denies: Uticaria Physical Exam Vital Signs/Narrative: Vital Signs Temp Pulse Resp BP Pulse Ox 10/22/18 08:12 99.2 F H 105 H 17 123/64 H 94 Inital Vital Signs reviewed: Yes General: Well nourished, Well developed, No Acute Distress Head: Normocephalic, Atraumatic Eyes: Perrl, EOMI. Negative for: Pale conjunctiva, Scleral icterus, - ENT: Moist mucous membranes, No rhinorrhea, TM's clear, - - Posterior pharynx without erythema or exudate. Neck: Supple, Nontender, No lymphadenopathy, No JVD, - - Trachea is midline. There is no stridor. Cardiovascular: Regular rhythm, No murmurs, Normal S1, Normal S2, Tachycardia Respiratory: No distress, CTA bilaterally, Chest nontender Abdomen: Soft, Nontender, Nondistended, Normal bowel sounds, No masses Rectal: Deferred Back: Nontender, Normal Inspection Extremities: Nontender, No edema Skin: Normal color, No rash, No Trauma. Negative for: Cyanosis, Diaphoresis, Jaundice Neurological: Alert, Oriented x3, Cranial nerves II-XII grossly intact, Normal Strength, Normal Sensation, Normal Gait Psychological: Normal affect, Normal Mood Diagnostic/Tx/Re-eval - Rhythm Strip Rhythm Strip: Sinus Rhythm Rate: 102 Ectopy: None - Medical Decision Making Patient presents with fever and respiratory symptoms. This may represent viral versus bacterial infection. Since patient is on immunosuppressive agents and cultures were obtained. Also because he is on immunosuppressive agents respiratory panel was obtained. He was admitted earlier this year for influenza type a and rhinovirus infection. Sepsis panel was initiated. IV was established and he will receive 250 cc normal saline per hour. Will reassess once laboratory tests are available for review. ED Disposition - Plan for ED Patient: Referrals: Zaki Sears MD [Primary Care Provider] -
[2018-10-22] MEDS: 0.9% Normal Saline 1,000 ML 250 ML IV (08:44)
[2018-10-22 08:46] VITALS: TEMP 37.2
[2018-10-22 08:46] LABS: Absolute Lymphocyte Count 2.07 X10^3/ul (0.83-4.51); Absolute Neutrophil Count 6.8 X10^3/uL (2.0-7.7); Basophil# 0.02 X10^3/uL; Basophil% 0.2 % (0-1); Eosinophil# 0.12 X10^3/uL; Eosinophils% 1.2 % (0-5); Hematocrit 42.4 % (40-54); Hemoglobin 14.6 g/dl (13.0-16.5); Lymphocyte # 2.07 X10^3/ul (4.0); Lymphocyte % 20.4 % (19-41); Mean Corp Hgb Conc 34.4 g/gl (32-36); Mean Corpuscular Hgb 32.7 pg (27.0-32.0); Mean Corpuscular Volume 95.1 fL (80-94); Mean Platelet Vol. 9.1 fl (6.2-12.0); Monocyte# 1.11 X10^3/uL; Monocyte% 10.9 % (0-10); Neutrophil # 6.81 X10^3/uL (2.7-7.7); Neutrophil % 67.1 % (47-70); POSITIVE COUNT NO; POSITIVE DIFFERENTIAL NO; POSITIVE MORPHOLOGY NO; Platelet Count 146 K/mm3 (150-450); RBC Distribution Width CV 14.1 % (11.6-14.6); RBC Distribution Width SD 49.2 fl (35.1-43.9); Red Blood Count 4.46 M/mm3 (4.6-6.2); White Blood Count 10.2 K/mm3 (4.4-11.0)
[2018-10-22 09:05] LABS: ALB/GLOB Ratio 0.8 RATIO (0.9-2.4); AST(SGOT) 22 U/L (15-37); Alanine Aminotransfer ALT/SGPT 28 U/L (16-61); Albumin, Serum 3.1 g/dL (3.2-5.0); Alkaline Phosphatase 178 U/L (45-117); Anion Gap 8 (5-15); BUN 18 mg/dL (7-18); BUN/Creat Ratio 13.7 RATIO (10-20); Calcium,Total 8.7 mg/dL (8.5-10.1); Chloride 108 mmol/L (98-107); Creatinine, Serum 1.31 mg/dL (0.70-1.30); EST Glomerular Filtration Rate 59 mL/min (>60); Est Glom Filt Rate - Afr Amer 71 mL/min (>60); Estimated Creatinine Clearance 66.08 ml/min; Globulin 3.9 g/dL (2.2-4.2); Glucose 125 mg/dL (74-106); Potassium 4.1 mmol/L (3.5-5.1); Sodium Level 140 mmol/L (136-145)
[2018-10-22 09:14] LABS: Lactic Acid 1.8 mmol/L (0.4-2.0)
[2018-10-22 09:15] LABS: International Normalized Ratio 1.2; Partial Thromboplast Time 31.5 Seconds (24.1-36.2); Prothrombin Time (Protime)PT. 14.5 SECONDS (11.7-14.9)
[2018-10-22 10:13] VITALS: BP 115/84; PULSE 80; RESP 16; TEMP 37.4; O2SAT 95
[2018-10-22 10:14] LABS: Bacteria 0 SEEN /hpf (None Seen)
[2018-10-22 10:29] LABS: Color, Urine Yellow (Yellow); Glucose, Dipstick Normal (Normal); Ketone-Dipstick Negative (Negative); Leukocyte Esterase-Dipstick 25 /ul (Negative); Nitrite-Dipstick Negative (Negative); Occult Blood-Urine 10 /ul (Negative); Protein-Dipstick 15 mg/dl (Negative); Urine Bilirubin Dipstick Negative (Negative); Urine Clarity Sl. Cloudy (Clear); Urine Urobilinogen Normal (Normal)
[2018-10-22 10:35] LABS: Mucous, Urine 1+ /hpf (<or=2+); Red Blood Cells-Urine 0-5 SEEN /hpf (0-5); Squamous Epithelial Cells - UA 0-5 SEEN /hpf (0-5); White Blood Cells 0-5 SEEN /hpf (0-5)
--- NOTE | 2018-10-22 10:39 | ED.VISSUMM ---
- ER Visit Summary Date of Service: 10/22/18 Chief Complaint: [] History of Present Illness: The patient is a 63 M [] Physical Examination: [] Test Results: [] Emergency Department Course and Treatment: [] Treatment Plan: [] Disposition: [] Impression: [] This note was generated with [employer] dictation software. It may contain incorrect words, spelling, and punctuation that were not noted in review of the chart prior to signing ED Disposition - Plan for ED Patient: Disposition: Home or Assisted Living Diagnosis: Infiltrate of lower lobe of left lung present on imaging study, Renal insufficiency, mild, Hyperglycemia, unspecified, S/P allogeneic bone marrow transplant Instructions: ED Pneumonia Adult Prescriptions: Levofloxacin 500 mg PO DAILY #5 tab Referrals: Zaki Sears MD [Primary Care Provider] - 1-2 Days if not improving Additional Instructions: If you do not receive a call from me by 1:00, call into the emergency department and ask for your respiratory panel results. If respiratory panel results are negative, fill prescription If respiratory panel results are positive, do not fill prescription
--- NOTE | 2018-10-22 10:42 | ED.DCSUM_ITS ---
- ER Visit Summary Date of Service: 10/22/18 Chief Complaint: [] History of Present Illness: The patient is a 63 M [] Physical Examination: [] Test Results: [] Emergency Department Course and Treatment: [] Treatment Plan: [] Disposition: [] Impression: [] This note was generated with [employer] dictation software. It may contain incorrect words, spelling, and punctuation that were not noted in review of the chart prior to signing ED Disposition - Plan for ED Patient: Disposition: Home or Assisted Living Diagnosis: Infiltrate of lower lobe of left lung present on imaging study, Renal insufficiency, mild, Hyperglycemia, unspecified, S/P allogeneic bone marrow transplant Instructions: ED Pneumonia Adult Prescriptions: Levofloxacin 500 mg PO DAILY #5 tab Referrals: Zaki Sears MD [Primary Care Provider] - 1-2 Days if not improving Additional Instructions: If you do not receive a call from me by 1:00, call into the emergency department and ask for your respiratory panel results. If respiratory panel results are negative, fill prescription If respiratory panel results are positive, do not fill prescription
[2018-10-22] MEDS: levoFLOXacin 750 MG Tablet PO (10:57)
[2018-10-22 11:02] VITALS: BP 117/79; PULSE 87; RESP 18; TEMP 37.2; O2SAT 100; O2SAT 99
== END 2018-10-22 11:04 | disposition home or self-care (01) ==
PROVIDERS: Emergency Provider Emergency Medicine; Family Provider Family Medicine; PCP Family Medicine
DX: R91.8 Other nonspecific abnormal finding of lung field (principal); Z94.81 Bone marrow transplant status; N28.9 Disorder of kidney and ureter, unspecified; R73.9 Hyperglycemia, unspecified; D46.9 Myelodysplastic syndrome, unspecified
CPT/HCPCS: 71046; 80053; 81001; 83605; 85025; 85610; 85730; 87040; 87633; 96360; 96361; 99285; J7030; A4216

== ENCOUNTER 2018-12-28 14:06 | Emergency (ER) | payer OTHER, SELFPAY ==
[2018-12-28 14:06] VITALS: BP 128/65; PULSE 88; RESP 20; TEMP 36.9; O2SAT 94; BMI 28.0
--- NOTE | 2018-12-28 14:34 | ED.VIS.GEN ---
History of Present Illness Chief Complaint: Fatigue Informant: Patient Onset: Days - 2 days Context: Gradual Onset Timing: Continuous Quality: chills Location: entire body Current Severity: Mild Maximum Severity: Mild Worsened by: nothing Relieved by: nothing Associated Symptoms: cough Narrative: 63-year-old male with a history of myelodysplastic syndrome status post bone marrow transplantation who currently finished tacrolimus 6 weeks ago presents to the emergency department with chills and nonproductive cough for the last 2 days. Patient is concerned he may have pneumonia as he has had it before. No documented fever. Highest temperature at home was 99.6 ?F oral. No vomiting or diarrhea. No chest pain or shortness of breath. He has been able to do his normal activities of daily living. No leg swelling. He has been able to eat and drink normally. No urinary symptoms. Prior similar symptoms: Yes Recent Illness/Hospitalization: No Past Medical History - Allergies and Home Meds Allergies/Adverse Reactions: Allergies Penicillins Adverse Reaction (Unknown, Verified 12/28/18 14:08) Other states had blood from bowel after pcn Primary Care Physician: Zaki Sears MD [Primary Care Provider] - Past Medical History: - - Myelodysplastic syndrome Surgical History: - - Three left knee surgeries. Bone marrow transplant Lives: With Family Smoking Status: Never smoker - Family History Paternal Family History: Family History (Last Updated 02/22/18 @ 23:21 by Yuan Bear MD) Father Emphysema lung Sister Cancer Family History: Reports: No pertinent history - Blood related hemopoietic cancer/lymphoma in first-degree relative Review of Systems All systems negative except as indicated General: Reports: Chills Respiratory: Reports: Cough Physical Exam Vital Signs/Narrative: Vital Signs Temp Pulse Resp BP Pulse Ox 12/28/18 14:06 98.5 F 88 20 H 128/65 H 94 Inital Vital Signs reviewed: Yes General: Well nourished, Well developed, No Acute Distress Head: Normocephalic, Atraumatic Eyes: Perrl, EOMI ENT: Moist mucous membranes, TM's clear Neck: Supple, Nontender, No lymphadenopathy, No JVD Cardiovascular: Regular rate, Regular rhythm Respiratory: No distress, CTA bilaterally, Chest nontender Abdomen: Soft, Nontender, Nondistended, Normal bowel sounds, No masses Back: Nontender Extremities: Nontender, No edema Skin: Normal color, No rash Neurological: Alert, Oriented x3, Normal Gait Diagnostic/Tx/Re-eval Chest X-Ray - ED: 2 View, Read by ED Physician, Read by Radiologist, No Acute Disease - Medical Decision Making On arrival oral temperature was 99.1 ?F. Otherwise vital signs are stable, patient is overall well-appearing and does not appear to be clinically dehydrated. Basic labs were obtained and were unremarkable. Patient has no acute findings on his chest x-ray. Because we did not find a source for the patient's slightly elevated temperature blood cultures were sent. At this time we do not feel the patient requires admission. He will be discharged home and advised to follow-up in the next 1 to 2 days with his primary care physician. He will be contacted with results of blood cultures. He was advised to continue taking his temperature continue hydration and follow-up as directed or return to the emergency department. ED Disposition - Plan for ED Patient: Disposition: Home or Assisted Living Diagnosis: MDS (myelodysplastic syndrome), Fever of unknown origin (FUO) Instructions: WEAKNESS, Unk Cause Referrals: Zaki Sears MD [Primary Care Provider] -
[2018-12-28] MEDS: Acetaminophen 325 MG Tablet 650 MG PO (14:43)
--- NOTE | 2018-12-28 14:49 | RAD_ITS ---
STUDY: X-RAY CHEST REASON FOR EXAM: Male, 63 years old. Cough with fever, history of pneumonia TECHNIQUE: PA and lateral views of the chest. COMPARISON: 10/22/2018 FINDINGS: EKG leads project over the chest. There are interstitial fibrotic changes of the lungs. There is no demonstrated pleural abnormality. Normal size heart. Normal mediastinum and ofelia. Normal visualized pulmonary arteries. Normal visualized aortic arch and descending thoracic aorta. There is demineralization of the osseous structures. Normal visualized ribs, clavicles, and shoulders. There is no demonstrated abnormality of the visualized soft tissue structures of the upper abdomen. RAD/Chest PA and Lateral IMPRESSION: 1. No acute cardiopulmonary process. 2. Pulmonary fibrosis, similar. Electronically Signed: Oli Brandt MD ([place]) at 15:12 EDT , Service support ,
[2018-12-28 15:08] LABS: Absolute Lymphocyte Count 1.95 X10^3/uL (0.83-4.51); Absolute Neutrophil Count 1.3 X10^3/uL (2.0-7.7); Basophil# 0.03 X10^3/uL; Basophil% 0.8 % (0-1); Eosinophil# 0.01 X10^3/uL; Eosinophils% 0.3 % (0-5); Hematocrit 41.3 % (40-54); Lymphocyte # 1.95 X10^3/ul (4.0); Lymphocyte % 51.6 % (19-41); Mean Corp Hgb Conc 33.9 g/dL (32-36); Mean Corpuscular Hgb 32.6 pg (27.0-32.0); Mean Corpuscular Volume 96.3 fL (80-94); Mean Platelet Vol. 9.2 fl (6.2-12.0); Monocyte# 0.53 X10^3/uL; NRBC Flagged by Analyzer 0 % (0-5); Neutrophil # 1.25 X10^3/uL (2.7-7.7); POSITIVE MORPHOLOGY YES; Platelet Count 117 K/mm3 (150-450); RBC Distribution Width CV 14.9 % (11.6-14.6); RBC Distribution Width SD 53.4 fl (35.1-43.9); Red Blood Count 4.29 M/mm3 (4.6-6.2); White Blood Count 3.8 K/mm3 (4.4-11.0)
[2018-12-28 15:11] LABS: Differential Indicated SCAN CRITERIA MET
[2018-12-28 15:24] LABS: Anion Gap 4 (5-15); BUN 23 mg/dL (7-18); BUN/Creat Ratio 19.5 RATIO (10-20); Calcium,Total 8.2 mg/dL (8.5-10.1); Chloride 104 mmol/L (98-107); Creatinine, Serum 1.18 mg/dL (0.70-1.30); EST Glomerular Filtration Rate 66 mL/min (>60); Est Glom Filt Rate - Afr Amer 80 mL/min (>60); Estimated Creatinine Clearance 73.35 ml/min; Glucose 98 mg/dL (74-106); Sodium Level 134 mmol/L (136-145)
[2018-12-28 15:55] LABS: Differential Comment SCANNED
== END 2018-12-28 16:08 | disposition home or self-care (01) ==
PROVIDERS: Emergency Provider Physician Assistant Medical; Family Provider Family Medicine; PCP Family Medicine
DX: D46.9 Myelodysplastic syndrome, unspecified (principal); R50.9 Fever, unspecified; Z94.81 Bone marrow transplant status
CPT/HCPCS: 71046; 80048; 85025; 87040; 99285; J7030; A4216

== ENCOUNTER → 2019-05-18 16:26 | Outpatient (CLI) | payer OTHER, SELFPAY ==
--- NOTE | 2019-05-18 16:30 | RAD_ITS ---
STUDY: X-RAY CHEST REASON FOR EXAM: Male, 63 years old. Sob and some coughing since February -2017 pt had a bone marrow transplant due to MDS, then after was diagnosed with pneumonia TECHNIQUE: PA and lateral views of the chest. COMPARISON: 12/28/2018 FINDINGS: The lungs are expanded with chronic interstitial changes and superimposed interstitial edema not present on the previous study. There is no demonstrated pleural abnormality. Normal size heart. Normal mediastinum and ofelia. Normal visualized pulmonary arteries. Normal visualized aortic arch and descending thoracic aorta. Normal visualized thoracic spine. Normal visualized ribs, clavicles, and shoulders. There is no demonstrated abnormality of the visualized soft tissue structures of the upper abdomen. RAD/Chest PA and Lateral IMPRESSION: Chronic interstitial changes with superimposed diffuse interstitial edema, follow-up recommended to ensure resolution Electronically Signed: Baldo Tsai MD at 16:56 EST , Service support ,
== END ==
PROVIDERS: Family Provider Family Medicine; PCP Family Medicine; Referring Provider Family Medicine; Visit Provider Family Medicine
DX: J40 Bronchitis, not specified as acute or chronic (principal)
CPT/HCPCS: 71046

== ENCOUNTER → 2019-06-12 09:42 | Outpatient (CLI) | payer OTHER, SELFPAY | LOC: LAB.FUTURE 09:43 → LAB 13:29 | PROVIDERS: PCP Family Medicine | DX: D46.9 Myelodysplastic syndrome, unspecified (principal) | CPT/HCPCS: 36415 ==

== ENCOUNTER → 2019-08-05 14:53 | Outpatient (CLI) | payer OTHER, SELFPAY ==
[2019-06-17 10:00] VITALS: BMI 23.7
--- NOTE | 2019-08-05 14:57 | ECHOD_ITS ---
Reason For Study: MDS Procedure This was a 2D Doppler, Color Flow transthoracic echocardiogram. Myocardial strain analysis was performed in this exam to aid in the assessment of cardiac function. Exam performed in department. Left Ventricle Normal size and thickness. The estimated ejection fraction is 55 %. Septal motion consistent with IVCD. The global longitudinal strain = -17% (borderline). There is borderline global hypokinesis of the left ventricle. Right Ventricle Severely dilated right ventricle. Normal systolic function. Atria Normal left atrium. Normal right atrium. Normal atrial septum. Bubble contrast study negative for right to left interatrial shunt. Mitral Valve The mitral valve is structurally normal. No prolapse or stenosis seen. Trivial mitral valve insufficiency. Tricuspid Valve Normal tricuspid valve. Trivial tricuspid valve insufficiency. Right ventricular systolic pressure estimated to be 38 mmHg. Mild pulmonary hypertension. Aortic Valve Normal aortic valve. Trisinus/trileaflet aortic valve. Pulmonic Valve Normal pulmonic valve. Great Vessels Normal aortic root. Normal arch. Normal inferior vena cava. Inferior vena cava collapse with sniff. Pericardium/Pleural No pericardial effusion. Medication Performed a rapid injection of agitated mix of 9 cc saline and 1cc air to assess for atrial septal defect. MMode/2D Measurements & Calculations LVIDd: 3.9 cm IVSd: 1.2 cm Ao root diam: 2.7 cm LVIDs: 2.3 cm LVPWd: 1.2 cm RVDd: 4.9 cm FS: 40.3 % LAV(MOD-bp): 56.2 ml LVAd ap4: 32.0 cm2 SV(MOD-sp4): 64.1 ml LAV(MOD-bp) Indexed: 27.0 ml/m2 EDV(MOD-sp4): 104.8 ml LAV(MOD-sp2): 69.8 ml EDV(sp4-el): 106.5 ml LAV(MOD-sp4): 44.3 ml LVAs ap4: 18.6 cm2 ESV(MOD-sp4): 40.7 ml ESV(sp4-el): 41.9 ml EF(MOD-sp4): 61.1 % EF(sp4-el): 60.6 % SV(sp4-el): 64.5 ml LA A4 area: 17.3 cm2 LA dimension(2D): 2.9 cm RA A4 area: 13.8 cm2 Doppler Measurements & Calculations MV E max yohan: 35.6 cm/sec Lat Peak E' Yohan: 8.3 cm/sec Med Peak E' Yohan: 5.9 cm/sec MV A max yohan: 50.7 cm/sec E/E' lat: 4.3 E/E' med: 6.1 MV E/A: 0.70 Ao V2 max: 100.8 cm/sec LV V1 max: 91.7 cm/sec TR max yohan: 286.5 cm/sec Ao max P.1 mmHg LV V1 max P.4 mmHg TR max P.8 mmHg Ao V2 mean: 77.1 cm/sec Ao mean P.5 mmHg Ao V2 VTI: 20.3 cm Interpretation Summary The estimated ejection fraction is 55 %. The global longitudinal strain = -17% (borderline). There is borderline global hypokinesis of the left ventricle. Severely dilated right ventricle. Bubble contrast study negative for right to left interatrial shunt. Trivial mitral valve insufficiency. Trivial tricuspid valve insufficiency. Right ventricular systolic pressure estimated to be 38 mmHg. Mild pulmonary hypertension. Ordering Physician: ELIZABET MCINTOSH Referring Physician: Zaki Graves Performed By: Tamra Wren, [place], RVT
== END ==
PROVIDERS: PCP Family Medicine
DX: D46.9 Myelodysplastic syndrome, unspecified (principal)
CPT/HCPCS: 93306; A4216

== ENCOUNTER → 2019-08-31 16:40 | Outpatient (CLI) | payer OTHER, SELFPAY ==
[2019-06-17 10:00] VITALS: BMI 23.7
[2019-08-31 18:08] LABS: Absolute Lymphocyte Count 2.12 X10^3/uL (0.83-4.51); Absolute Neutrophil Count 4.2 X10^3/uL (2.0-7.7); Basophil# 0.01 X10^3/uL; Basophil% 0.1 % (0-1); Hematocrit 38.8 % (40-54); Hemoglobin 13.2 g/dL (13.0-16.5); Lymphocyte # 2.12 X10^3/ul (4.0); Lymphocyte % 30.1 % (19-41); Mean Corpuscular Volume 105.7 fL (80-94); Mean Platelet Vol. 9.1 fl (6.2-12.0); Monocyte# 0.68 X10^3/uL; Monocyte% 9.6 % (0-10); NRBC Flagged by Analyzer 0 % (0-5); Neutrophil # 4.21 X10^3/uL (2.7-7.7); Neutrophil % 59.8 % (47-70); Platelet Count 167 K/mm3 (150-450); RBC Distribution Width CV 15.7 % (11.6-14.6); RBC Distribution Width SD 61.9 fl (35.1-43.9); Red Blood Count 3.67 M/mm3 (4.6-6.2); White Blood Count 7.1 K/mm3 (4.4-11.0)
[2019-08-31 18:48] LABS: AST(SGOT) 25 U/L (15-37); Alanine Aminotransfer ALT/SGPT 28 U/L (16-61); Albumin, Serum 3.3 g/dL (3.2-5.0); Alkaline Phosphatase 143 U/L (45-117); Bilirubin, Direct 0.12 mg/dL (0.00-0.30); Globulin 2.7 g/dL (2.2-4.2)
== END ==
PROVIDERS: PCP Family Medicine
DX: Z79.899 Other long term (current) drug therapy (principal)
CPT/HCPCS: 36415; 80076; 85025

== ENCOUNTER → 2019-10-01 13:13 | Outpatient (CLI) | payer OTHER, SELFPAY ==
[2019-06-17 10:00] VITALS: BMI 23.7
[2019-10-01 15:18] LABS: Absolute Lymphocyte Count 1.52 X10^3/uL (0.83-4.51); Absolute Neutrophil Count 3.2 X10^3/uL (2.0-7.7); Basophil# 0.02 X10^3/uL; Basophil% 0.4 % (0-1); Eosinophil# 0.04 X10^3/uL; Eosinophils% 0.8 % (0-5); Hematocrit 43.4 % (40-54); Hemoglobin 14.5 g/dL (13.0-16.5); Lymphocyte # 1.52 X10^3/ul (4.0); Lymphocyte % 30.3 % (19-41); Mean Corp Hgb Conc 33.4 g/dL (32-36); Mean Corpuscular Hgb 36.1 pg (27.0-32.0); Mean Platelet Vol. 9.3 fl (6.2-12.0); Monocyte# 0.26 X10^3/uL; Monocyte% 5.2 % (0-10); NRBC Flagged by Analyzer 0 % (0-5); Neutrophil # 3.15 X10^3/uL (2.7-7.7); Neutrophil % 62.9 % (47-70); Platelet Count 166 K/mm3 (150-450); RBC Distribution Width SD 52.1 fl (35.1-43.9); Red Blood Count 4.02 M/mm3 (4.6-6.2)
[2019-10-01 15:29] LABS: AST(SGOT) 25 U/L (15-37); Alanine Aminotransfer ALT/SGPT 29 U/L (16-61); Albumin, Serum 3.6 g/dL (3.2-5.0); Alkaline Phosphatase 164 U/L (45-117); Bilirubin, Direct 0.14 mg/dL (0.00-0.30); Protein, Total 6.6 g/dL (6.4-8.2)
== END ==
PROVIDERS: PCP Family Medicine
DX: T86.5 Complications of stem cell transplant (principal); J95.89 Other postprocedural complications and disorders of respiratory system, not elsewhere classified; Z79.899 Other long term (current) drug therapy
CPT/HCPCS: 36415; 80076; 85025

== ENCOUNTER → 2019-11-09 15:50 | Outpatient (CLI) | payer OTHER, SELFPAY ==
[2019-06-17 10:00] VITALS: BMI 23.7
== END ==
PROVIDERS: PCP Family Medicine
DX: Z13.1 Encounter for screening for diabetes mellitus (principal)
CPT/HCPCS: 36415; 83036

== ENCOUNTER → 2019-11-30 16:27 | Outpatient (CLI) | payer OTHER, SELFPAY ==
[2019-06-17 10:00] VITALS: BMI 23.7
[2019-11-30 18:43] LABS: Absolute Lymphocyte Count 2.02 X10^3/uL (0.83-4.51); Absolute Neutrophil Count 2.7 X10^3/uL (2.0-7.7); Basophil# 0.01 X10^3/uL; Basophil% 0.2 % (0-1); Eosinophil# 0.05 X10^3/uL; Hematocrit 43.9 % (40-54); Hemoglobin 14.7 g/dL (13.0-16.5); Lymphocyte # 2.02 X10^3/ul (4.0); Lymphocyte % 38.4 % (19-41); Mean Corp Hgb Conc 33.5 g/dL (32-36); Mean Corpuscular Hgb 35.7 pg (27.0-32.0); Mean Corpuscular Volume 106.6 fL (80-94); Mean Platelet Vol. 9.3 fl (6.2-12.0); Monocyte# 0.51 X10^3/uL; Monocyte% 9.7 % (0-10); NRBC Flagged by Analyzer 0 % (0-5); Neutrophil # 2.66 X10^3/uL (2.7-7.7); Neutrophil % 50.5 % (47-70); Platelet Count 165 K/mm3 (150-450); RBC Distribution Width CV 12.5 % (11.6-14.6); RBC Distribution Width SD 49.1 fl (35.1-43.9); Red Blood Count 4.12 M/mm3 (4.6-6.2); White Blood Count 5.3 K/mm3 (4.4-11.0)
[2019-11-30 18:53] LABS: AST(SGOT) 29 U/L (15-37); Alanine Aminotransfer ALT/SGPT 30 U/L (16-61); Albumin, Serum 3.6 g/dL (3.2-5.0); Alkaline Phosphatase 154 U/L (45-117); Anion Gap 3 (5-15); BUN 29 mg/dL (7-18); Bilirubin, Direct 0.12 mg/dL (0.00-0.30); Chloride 110 mmol/L (98-107); EST Glomerular Filtration Rate 80 mL/min (>60); Est Glom Filt Rate - Afr Amer 97 mL/min (>60); Globulin 2.9 g/dL (2.2-4.2); Potassium 4.7 mmol/L (3.5-5.1); Protein, Total 6.5 g/dL (6.4-8.2); Sodium Level 140 mmol/L (136-145)
== END ==
PROVIDERS: PCP Family Medicine
DX: D89.813 Graft-versus-host disease, unspecified (principal); Z79.899 Other long term (current) drug therapy
CPT/HCPCS: 36415; 80051; 80076; 82565; 84520; 85025

== ENCOUNTER → 2019-12-16 | Outpatient (CLI) | payer OTHER, SELFPAY ==
[2019-06-17 10:00] VITALS: BMI 23.7
== END | disposition home or self-care (01) ==
LOC: LABSPEC 10:29
PROVIDERS: PCP Family Medicine; Referring Provider Family Medicine; Visit Provider Family Medicine
DX: Z20.828 Contact with and (suspected) exposure to other viral communicable diseases (principal)
CPT/HCPCS: 87635; U0003

== ENCOUNTER → 2020-06-09 12:53 | Outpatient (CLI) | payer OTHER, SELFPAY ==
[2019-06-17 10:00] VITALS: BMI 23.7
[2020-06-09 15:06] LABS: Absolute Lymphocyte Count 1.68 X10^3/uL (0.83-4.51); Absolute Neutrophil Count 2.6 X10^3/uL (2.0-7.7); Basophil# 0.02 X10^3/uL; Basophil% 0.4 % (0-1); Hematocrit 45.1 % (40-54); Hemoglobin 15.4 g/dL (13.0-16.5); Lymphocyte # 1.68 X10^3/ul (4.0); Lymphocyte % 37.3 % (19-41); Mean Corp Hgb Conc 34.1 g/dL (32-36); Mean Corpuscular Hgb 34.7 pg (27.0-32.0); Mean Corpuscular Volume 101.6 fL (80-94); Mean Platelet Vol. 9.5 fl (6.2-12.0); Monocyte% 4.4 % (0-10); NRBC Flagged by Analyzer 0 % (0-5); Neutrophil # 2.59 X10^3/uL (2.7-7.7); Neutrophil % 57.5 % (47-70); Platelet Count 158 K/mm3 (150-450); RBC Distribution Width CV 13.1 % (11.6-14.6); Red Blood Count 4.44 M/mm3 (4.6-6.2); White Blood Count 4.5 K/mm3 (4.4-11.0)
[2020-06-09 15:29] LABS: ALB/GLOB Ratio 1.4 RATIO (0.9-2.4); AST(SGOT) 24 U/L (15-37); Alanine Aminotransfer ALT/SGPT 33 U/L (16-61); Albumin, Serum 3.8 g/dL (3.2-5.0); Alkaline Phosphatase 143 U/L (45-117); Anion Gap 4 (5-15); BUN 27 mg/dL (7-18); BUN/Creat Ratio 22.7 RATIO (10-20); Chloride 109 mmol/L (98-107); Creatinine, Serum 1.19 mg/dL (0.70-1.30); EST Glomerular Filtration Rate 66 mL/min (>60); Est Glom Filt Rate - Afr Amer 79 mL/min (>60); Globulin 2.7 g/dL (2.2-4.2); Glucose 110 mg/dL (74-106); Potassium 4.4 mmol/L (3.5-5.1); Protein, Total 6.5 g/dL (6.4-8.2); Sodium Level 140 mmol/L (136-145)
[2020-06-09 15:39] LABS: Hemoglobin A1c 5.9 % (3.8-5.6)
== END ==
PROVIDERS: PCP Family Medicine
DX: D89.813 Graft-versus-host disease, unspecified (principal); Z79.899 Other long term (current) drug therapy
CPT/HCPCS: 36415; 80053; 83036; 85025

== ENCOUNTER 2021-02-21 18:21 | Observation (INO) | payer OTHER, SELFPAY ==
[2021-02-21 18:23] VITALS: BP 140/88; PULSE 95; RESP 16; TEMP 36.8; O2SAT 96; BMI 28.2
--- NOTE | 2021-02-21 18:49 | EX.ED.DYSGE1 ---
HPI History of Present Illness Chief Complaint: Rash Detail of Chief Complaint: Rash that started 5 days ago on his right leg Informant: patient Narrative Narrative: Rash that started 5 days ago on his right leg. Patient was sent in by his human service specialist with concern for disseminated herpes zoster. It was recommended that he be admitted for IV antivirals. Patient denies any fevers or chills or sweats. Patient has had his Covid vaccine and has also had his zoster vaccine. Patient has remote history of MDS with bone marrow transplant. Prior similar symptoms: No PFSH PFSH Medical History (Updated 02/21/21 @ 20:[address] Alcira Bunn DO) Acute respiratory failure SANG (acute kidney injury) Anxiety Arthralgia Bacteremia Benign hypertension CINV (chemotherapy-induced nausea and vomiting) Debility Electrolyte abnormality Epistaxis H/O Escherichia coli septicemia Hypercholesteremia Idiopathic pneumonia syndrome MDS (myelodysplastic syndrome) Pancytopenia Pulmonary infiltrate SOB (shortness of breath) V tach Home Medications calcium citrate 950 mg PO BID 02/22/18 [History Last Taken 10/22/18] cholecalciferol (vitamin D3) 2,000 unit PO DAILY 02/22/18 [History Last Taken 10/22/18] trazodone 50 mg PO QHS 02/21/21 [History Last Taken Unknown] Allergy/AdvReac Type Severity Reaction Status Date / Time Penicillins AdvReac Unknown Other Verified 02/21/21 18:22 Family History Father Emphysema lung Sister Cancer Surgical History H/O knee surgery History of bronchoscopy History of tonsillectomy insertion cvc tunneled removal of cvc tunneled S/P bone marrow transplant Social History (Updated 06/18/19 @ 07:[address] Lavelle Puri DO) Smoking Status: Never smoker ROS ROS ED Constitutional Constitutional ED: Reports systems reviewed and no addt'l complaints, except as documented; Denies body ache(s), change in weight or chills Eyes Eyes: Denies acute decrease in peripheral vision, change in vision, double vision or loss of vision ENT ENT ED: Reports none; Denies ear pain, lip swelling, loss taste/smell, neck pain, otalgia or sore throat Cardiovascular Cardiovascular: Reports none; Denies abdominal pain, chest pain with activity, leg edema, lightheadedness, palpitations, rapid heart rate or syncope Respiratory/Chest Respiratory/Chest: Reports none; Denies change in mental status, dry cough, dyspnea, hemoptysis, shortness of breath at rest or shortness of breath with exertion Gastrointestinal Gastrointestinal: Reports none; Denies abdominal pain, change in stool character, diarrhea, hematemesis, hematochezia, melena, rectal bleeding or vomiting Genitourinary Genitourinary ED: Reports none; Denies abdominal discomfort, anuria, dysuria, genital pain or polyuria Musculoskeletal Musculoskeletal: Reports none; Denies arthralgias, back pain, difficulty walking, extremity pain, muscle weakness or myalgias Integumentary Reports none and rash; Denies abscess Neurologic Neurologic: Reports none; Denies abnormal gait, confusion, focal weakness, frequent falls, headache(s), loss of vision, numbness, paresthesias, radicular pain, vertigo or weakness Psychiatric Psychiatric: Reports systems reviewed and no addt'l complaints, except as documented and none; Denies behavioral changes, confusion, difficulty concentrating, hallucinations, suicidal ideation, tactile hallucinations or visual hallucinations Endocrine Endocrinology: Denies none, cold intolerance, excessive sweating, fatigue or heat intolerance Hematologic/Lymphatic Hematologic/Lymphatic: Reports none; Denies anemia, easy bleeding or easy bruising Allergic/Immunologic Allergic/Immunologic ED: Denies as per HPI, none, lip swelling, mouth swelling, throat swelling, tongue swelling or hives EXAM Physical Exam Const Vital Signs: 02/21/21 18:23 02/21/21 19:43 02/21/21 20:15 Temperature 98.2 F 99.7 F H Temperature Source Temporal Temporal Pulse Rate 95 77 Respiratory Rate 16 18 Blood Pressure 140/88 H 122/83 H Blood Pressure Mean 105 96 Pulse Ox 96 93 Oxygen Delivery Method Room Air Room Air Positive well nourished and well developed General Appearance ED: well developed and NAD HEENT Reports TM's clear and moist mucous membranes normocephalic and atraumatic; Negative for trauma or tenderness Tympanic Membrane ED: Yes TM's clear Eyes PERRL and EOMs intact bilaterally General Eye ED: Negative for pale conjunctiva or scleral icterus Neck no lymphadenopathy, supple and no JVD General: Negative for tenderness Chest Wall inspection of chest normal and palpation of chest normal Chest: Negative for tenderness Resp normal respiratory effort and clear to auscultation bilaterally Effort and Inspection: Negative for respiratory distress or pain with movement Auscultation: Negative for rhonchi, wheezes or diminished lung sounds Cardio regular rate, regular rhythm, S1 normal heart sound, S2 normal heart sound and no murmurs Peripheral Pulses: pulses 2+ throughout GI normal to inspection, nondistended, normoactive bowel sounds, soft to palpation, non-tender, non-distended and no masses Back/Spine no CVA tenderness and no thoracic nor lumbar tenderness Extremity normal to inspection General Extremety ED: Negative for edema General Extremity: Negative for edema Neuro oriented x3, CN's II-XII intact bilaterally, no sensory deficits noted and gait normal Sensorium / Orientation: awake, alert, oriented to person, oriented to place and oriented to time Motor Exam: strength 5/5 throughout and strength abnormal Psych mental status grossly normal Skin no wounds Skin Narrative: Evaluation of his right thigh reveals vesicular and almost pustular type rash with diffuse surrounding erythema. Patient also has some excoriated lesions on his right arm and left upper face and the involving his nose. MDM MDM MDM Narrative Medical decision making narrative: Case discussed with hospitalist will evaluate patient for admission. Patient was started on acyclovir 500 mg IV. Lab Data Attestation: I reviewed the patient's lab results. Labs: Laboratory Results - last 24 hr 02/21/21 02/21/21 02/21/21 19:05 19:05 19:05 WBC 4.5 RBC 4.26 L Hgb 14.2 Hct 41.8 MCV 98.1 H MCH 33.3 H MCHC 34.0 RDW Std Deviation 46.2 H RDW Coeff of Kaitlyn 12.9 Plt Count 71 L MPV 9.5 Immature Gran % (Auto) 0.200 Neut % (Auto) 42.5 L Lymph % (Auto) 44.6 H [place] % (Auto) 12.1 H Eos % (Auto) 0.4 Baso % (Auto) 0.2 Absolute Neuts (auto) 1.9 L Absolute Lymphs (auto) 2.02 Nucleated RBC % 0 Differential Comment SCANNED Platelet Estimate MOD DEC Sodium 138 Potassium 3.7 Chloride 103 Carbon Dioxide 28.0 Anion Gap 7 BUN 23 H Creatinine 1.22 Estim Creat Clear Calc 71.12 Est GFR (MDRD) Af Amer 77 Est GFR (MDRD) Non-Af 64 BUN/Creatinine Ratio 18.9 Glucose 124 H Lactic Acid 1.3 Calcium 8.7 Total Bilirubin 0.70 AST 24 ALT 25 Alkaline Phosphatase 171 H Total Protein 6.5 Albumin 3.3 Globulin 3.2 Albumin/Globulin Ratio 1.0 Discharge Plan Triage Chief Complaint: Rash ED Provider: Alcira Bunn Dx/Rx/DC Orders Clinical Impression: Disseminated herpes zoster Prescriptions: No Action calcium citrate 200 MG tablet 950 mg PO BID RF: 0 cholecalciferol (vitamin D3) 2,000 UNIT capsule 2,000 unit PO DAILY RF: 0 trazodone 50 mg tablet 50 mg PO QHS RF: 0 Primary Care Provider: Zaki Graves Referrals: Zaki Graves MD [Primary Care Provider] - Disposition Disposition: Acute Care [facility]
[2021-02-21 19:20] LABS: Absolute Lymphocyte Count 2.02 X10^3/uL (0.83-4.51); Absolute Neutrophil Count 1.9 X10^3/uL (2.0-7.7); Basophil# 0.01 X10^3/uL; Basophil% 0.2 % (0-1); Differential Indicated SCAN CRITERIA MET; Eosinophil# 0.02 X10^3/uL; Eosinophils% 0.4 % (0-5); Hematocrit 41.8 % (40-54); Hemoglobin 14.2 g/dL (13.0-16.5); Lymphocyte # 2.02 X10^3/ul (0.83-4.51); Lymphocyte % 44.6 % (19-41); Mean Corpuscular Hgb 33.3 pg (27.0-32.0); Mean Corpuscular Volume 98.1 fL (80-94); Mean Platelet Vol. 9.5 fl (6.2-12.0); Monocyte# 0.55 X10^3/uL; Monocyte% 12.1 % (0-10); NRBC Flagged by Analyzer 0 % (0-5); Neutrophil # 1.92 X10^3/uL (2.7-7.7); Neutrophil % 42.5 % (47-70); POSITIVE COUNT YES; Platelet Count 71 K/mm3 (150-450); RBC Distribution Width CV 12.9 % (11.6-14.6); RBC Distribution Width SD 46.2 fl (35.1-43.9); Red Blood Count 4.26 M/mm3 (4.6-6.2); White Blood Count 4.5 K/mm3 (4.4-11.0)
[2021-02-21 19:36] LABS: AST(SGOT) 24 U/L (15-37); Alanine Aminotransfer ALT/SGPT 25 U/L (16-61); Albumin, Serum 3.3 g/dL (3.2-5.0); Alkaline Phosphatase 171 U/L (45-117); Anion Gap 7 (5-15); BUN 23 mg/dL (7-18); BUN/Creat Ratio 18.9 RATIO (10-20); Calcium,Total 8.7 mg/dL (8.5-10.1); Chloride 103 mmol/L (98-107); Creatinine, Serum 1.22 mg/dL (0.70-1.30); EST Glomerular Filtration Rate 64 mL/min (>60); Est Glom Filt Rate - Afr Amer 77 mL/min (>60); Estimated Creatinine Clearance 71.12 ml/min; Globulin 3.2 g/dL (2.2-4.2); Glucose 124 mg/dL (74-106); Potassium 3.7 mmol/L (3.5-5.1); Protein, Total 6.5 g/dL (6.4-8.2); Sodium Level 138 mmol/L (136-145)
[2021-02-21 19:43] VITALS: BP 122/83; PULSE 77; RESP 18; O2SAT 93
[2021-02-21 19:52] LABS: Differential Comment SCANNED; Platelet Estimate MOD DEC (ADEQ)
[2021-02-21 20:00] LABS: Lactic Acid 1.3 mmol/L (0.4-1.9)
[2021-02-21 20:15] VITALS: TEMP 37.6
[2021-02-21 20:45] VITALS: BP 113/58; PULSE 70; RESP 18; TEMP 36.8; O2SAT 96
--- NOTE | 2021-02-21 20:59 | PCM.HP.STD ---
HPI - General HPI Narrative HOWIE LOVELACE, is a 65 M who has a history of MDS status post bone marrow transplant in 2018 presented to the emergency department at [facility] on 02/21/2021 at the referral of his service delivery analyst, Dr. Vega, with a concern for disseminated herpes zoster. The patient reports that the rash that is present started 5 days ago on his right buttock area and has progressed down his right leg, to his right arm, and left face since presentation. He reports that the vesicles are in various stages of healing and denies any pain at this point although he does report some anesthesia at the sites. His service delivery analyst recommend he be admitted for IV antivirals. He denies any fever or chills. He reports he had a zoster vaccine approximately 2 years ago and has had his Covid vaccine as well. He is currently not on any immunosuppression. His vital signs are stable. His CBC is overall unremarkable other than some thrombocytopenia which appears to be new. His BMP shows chronic stable CKD stage II with a serum creatinine at baseline at 1.22. His lactic acid is within normal limits. His LFTs are unremarkable. He will be admitted to the medical surgical floor for IV acyclovir at 10 mg/kg body weight. [facility] Medical History (Updated 02/21/21 @ 21:[address] Marnie De La Garza DO) Acute respiratory failure SANG (acute kidney injury) Anxiety Arthralgia Bacteremia Benign hypertension CINV (chemotherapy-induced nausea and vomiting) Debility Electrolyte abnormality Epistaxis H/O Escherichia coli septicemia Hypercholesteremia Idiopathic pneumonia syndrome MDS (myelodysplastic syndrome) Pancytopenia Pulmonary infiltrate SOB (shortness of breath) V tach Home Medications calcium citrate 950 mg PO BID 02/22/18 [History Last Taken 10/22/18] cholecalciferol (vitamin D3) 2,000 unit PO DAILY 02/22/18 [History Last Taken 10/22/18] trazodone 50 mg PO QHS 02/21/21 [History Last Taken Unknown] Allergy/AdvReac Type Severity Reaction Status Date / Time Penicillins AdvReac Unknown Other Verified 02/21/21 18:22 Family History Father Emphysema lung Sister Cancer Surgical History H/O knee surgery History of bronchoscopy History of tonsillectomy insertion cvc tunneled removal of cvc tunneled S/P bone marrow transplant Social History Smoking Status: Never smoker ROS Constitutional Constitutional: Denies anorexia, change in weight, chills, fatigue, fever(s), malaise, night sweats, weakness or other Eyes Eyes: Denies blurry vision, change in eye color, change in vision, discharge from eye(s), double vision, erythema, eye pain, loss of vision or other ENT HEENT: Denies abnormal hearing, dysphagia, ear pain, epistaxis, headache(s), hearing loss, nasal congestion, nasal discharge, post nasal drip, sinus pressure, sore throat or other Cardiovascular Cardiovascular: Denies chest pain, claudication, dyspnea on exertion, edema, lightheadedness, orthopnea, palpitations, paroxysmal nocturnal dyspnea, rapid heart rate, syncope or other Respiratory/Chest Respiratory/Chest: Denies cough, dyspnea, excessive phlegm production, hemoptysis, productive cough, shortness of breath at rest, shortness of breath with exertion, wheezing or other Gastrointestinal Gastrointestinal: Denies abdominal pain, coffee ground emesis, constipation, diarrhea, dyspepsia, hematemesis, hematochezia, loose stools, melena, nausea, vomiting or other Genitourinary Genitourinary: Denies burning urination, difficulty urinating, dysuria, hematuria, nocturia, urinary frequency, urinary hesitancy, urinary incontinence, urinary urgency or other Musculoskeletal Musculoskeletal: Denies arthralgias, back pain, joint pain, joint stiffness, joint swelling, myalgias, neck pain or other Neurologic Neurologic: Reports numbness; Denies abnormal gait, abnormal speech, confusion, disequilibrium, dizziness, focal weakness, headache(s), paresthesias, seizure-like activity, seizures, syncope, tingling, tremor(s) or other Psychiatric Psychiatric: Denies anxiety, depression, homicidal ideation, suicidal ideation or other Endocrine Endocrinology: Denies change in body appearance, cold intolerance, excessive sweating, heat intolerance, polydipsia, polyuria or other Hematologic/Lymphatic Hematologic/Lymphatic: Denies anemia, easy bleeding, easy bruising, lymphadenopathy or other Allergic/Immunologic Allergic/Immunologic: Reports other Details: Rash right leg, right arm, left face ; Denies rhinitis, hives, eczemia or asthma Vital Signs Vital Signs Vital Signs: 02/21/21 18:23 02/21/21 19:43 02/21/21 20:15 Temperature 98.2 F 99.7 F H Temperature Source Temporal Temporal Pulse Rate 95 77 Respiratory Rate 16 18 Blood Pressure 140/88 H 122/83 H Blood Pressure Mean 105 96 Pulse Ox 96 93 Oxygen Delivery Method Room Air Room Air 02/21/21 20:45 Temperature 98.3 F Temperature Source Oral Pulse Rate 70 Respiratory Rate 18 Blood Pressure 113/58 L Blood Pressure Mean 76 Pulse Ox 96 Oxygen Delivery Method Room Air Weight Weight: 99.79 kg Body Mass Index (BMI) 28.2 Physical Exam Const alert, oriented x3, no apparent distress and average body habitus Constitutional Narrative: Upper middle-aged white male lying in bed on his left side, at bedside, appears nontoxic and very comfortable, very pleasant General Appearance: cooperative HEENT normocephalic, head/scalp atraumatic, hearing grossly normal bilaterally and moist oral mucous membranes HEENT Narrative: Some small erythematous patches on the left side of the face not involving the left thigh or oropharynx, positive Zapien sign with zoster involving the tip of his nose, no signs of [place] Streeter syndrome at this time Eyes PERRL, EOMs intact bilaterally and conjunctivae normal Neck no lymphadenopathy, supple, no JVD and no carotid bruits GI normal to inspection, nondistended, normoactive bowel sounds, soft to palpation, non-tender and non-distended; Negative for hepatosplenomegaly Extremity normal to inspection, full ROM and no clubbing, cyanosis or edema Peripheral Pulses: Yes pulses 2+ throughout Skin Skin Narrative: Vesicular rash right leg in the posterior buttock down the right posterior thigh into the right calf approximately L4-L5 distribution, small early vesicles in his right arm, vesicle on the tip of his nose and on the left side of his face without any ocular involvement or oral involvement at this time, no left ear involvement either Neuro oriented x3, CN's II-XII intact bilaterally, moves all extremities and no focal motor deficits Neuro Narrative: Patient does still seem to have some paresthesias at the sites of his zoster Sensorium / Orientation: awake, alert, oriented to person, oriented to place and oriented to time Speech: speech normal Motor Exam: strength 5/5 throughout Psych affect normal Results Lab / Micro Data Attestation: I reviewed the patient's lab results. Result Diagrams: 02/21/21 19:05 02/21/21 19:05 Labs: Laboratory Results - last 24 hr 02/21/21 19:05: WBC 4.5, RBC 4.26 L, Hgb 14.2, Hct 41.8, MCV 98.1 H, MCH 33.3 H, MCHC 34.0, RDW Std Deviation 46.2 H, RDW Coeff of Kaitlyn 12.9, Plt Count 71 L, MPV 9.5, Immature Gran % (Auto) 0.200, Neut % (Auto) 42.5 L, Lymph % (Auto) 44.6 H, Collin % (Auto) 12.1 H, Eos % (Auto) 0.4, Baso % (Auto) 0.2, Absolute Neuts (auto) 1.9 L, Absolute Lymphs (auto) 2.02, Nucleated RBC % 0, Differential Comment SCANNED, Platelet Estimate MOD DEC 02/21/21 19:05: Sodium 138, Potassium 3.7, Chloride 103, Carbon Dioxide 28.0, Anion Gap 7, BUN 23 H, Creatinine 1.22, Estim Creat Clear Calc 71.12, Est GFR (MDRD) Af Amer 77, Est GFR (MDRD) Non-Af 64, BUN/Creatinine Ratio 18.9, Glucose 124 H, Calcium 8.7, Total Bilirubin 0.70, AST 24, ALT 25, Alkaline Phosphatase 171 H, Total Protein 6.5, Albumin 3.3, Globulin 3.2, Albumin/Globulin Ratio 1.0 02/21/21 19:05: Lactic Acid 1.3 Assessment & Plan Assessment/Plan (1) Disseminated herpes zoster: (2) Thrombocytopenia: (3) Zapien's sign present: PLAN: Disseminated herpes zoster -Start IV acyclovir at 10 mg/kg of body weight--> 1 g 3 times daily -Consult infectious disease -Consult ophthalmology given positive Zapien sign with zoster on the tip of his nose -No current signs of [place] Streeter syndrome -No current pain but consider gabapentin depending on symptoms with progression Thrombocytopenia -It appears most recent counts had been in the low 150,000 range -71,000 on day of admission -May have dropped due to a viral illness -The rest of his counts are stable -Patient does have history of MDS -Monitor CKD stage II -Serum creatinine is at baseline at 1.22 -Continue to monitor especially with utilization of acyclovir -Hep-Lock IV fluids History of MDS -Status post bone marrow transplant in 2018 -Patient is not currently on any immunosuppression -Chronic stable DVT prophylaxis -Lovenox daily -Monitor platelets closely CODE STATUS -Full code Charges/Coding Visit Charges Inpatient E&M: 59396 Init Hosp L3
[2021-02-21 22:37] VITALS: BMI 28.3
[2021-02-21 23:00] VITALS: BP 140/76; PULSE 79; RESP 16; TEMP 36.9; O2SAT 95
--- NOTE | 2021-02-21 23:03 | PCS.PANDOC ---
PANDEMIC DOCUMENTATION INITIATED: Date: 01/02/2021 Time: 190
[2021-02-21] MEDS: Calcium Carbonate 500 MG Tablet PO (23:16)
[2021-02-21] MEDS: traZODone 50 MG Tablet PO (23:16)
[2021-02-22 01:20] VITALS: O2SAT 93
[2021-02-22 05:00] VITALS: BP 106/67; PULSE 77; RESP 18; TEMP 37.7; O2SAT 94
[2021-02-22] MEDS: DEXTROSE 5% IV (05:30)
[2021-02-22] MEDS: ACYCLOVIR IV (05:30)
[2021-02-22] MEDS: 0.9% Saline Lock 10 ML Syringe IV (05:35)
[2021-02-22 06:13] LABS: Absolute Lymphocyte Count 2.34 X10^3/uL (0.83-4.51); Absolute Neutrophil Count 1.8 X10^3/uL (2.0-7.7); Basophil# 0.02 X10^3/uL; Basophil% 0.4 % (0-1); Eosinophil# 0.02 X10^3/uL; Eosinophils% 0.4 % (0-5); Hematocrit 38.9 % (40-54); Hemoglobin 13.5 g/dL (13.0-16.5); Lymphocyte # 2.34 X10^3/ul (0.83-4.51); Mean Corp Hgb Conc 34.7 g/dL (32-36); Mean Corpuscular Hgb 33.2 pg (27.0-32.0); Mean Corpuscular Volume 95.6 fL (80-94); Mean Platelet Vol. 9.5 fl (6.2-12.0); Monocyte# 0.58 X10^3/uL; Monocyte% 12.1 % (0-10); NRBC Flagged by Analyzer 0 % (0-5); Neutrophil # 1.79 X10^3/uL (2.7-7.7); Neutrophil % 37.5 % (47-70); POSITIVE COUNT YES; Platelet Count 67 K/mm3 (150-450); RBC Distribution Width CV 12.8 % (11.6-14.6); RBC Distribution Width SD 45.1 fl (35.1-43.9); Red Blood Count 4.07 M/mm3 (4.6-6.2); White Blood Count 4.8 K/mm3 (4.4-11.0)
[2021-02-22 06:50] LABS: AST(SGOT) 23 U/L (15-37); Alanine Aminotransfer ALT/SGPT 25 U/L (16-61); Alkaline Phosphatase 137 U/L (45-117); Anion Gap 6 (5-15); BUN 18 mg/dL (7-18); BUN/Creat Ratio 15.9 RATIO (10-20); Bilirubin, Direct 0.18 mg/dL (0.00-0.30); Calcium,Total 8.6 mg/dL (8.5-10.1); Chloride 106 mmol/L (98-107); Creatinine, Serum 1.13 mg/dL (0.70-1.30); EST Glomerular Filtration Rate 69 mL/min (>60); Est Glom Filt Rate - Afr Amer 84 mL/min (>60); Estimated Creatinine Clearance 76.78 ml/min; Globulin 3.1 g/dL (2.2-4.2); Glucose 131 mg/dL (74-106); Magnesium 1.9 mg/dL (1.6-2.6); Phosphorus 3.1 mg/dL (2.5-4.9); Potassium 3.8 mmol/L (3.5-5.1); Protein, Total 6.1 g/dL (6.4-8.2); Sodium Level 138 mmol/L (136-145)
[2021-02-22] MEDS: Calcium Carbonate 500 MG Tablet PO (08:23)
[2021-02-22] MEDS: Cholecalciferol (VIT D3) 25 MCG TABLET (1,000 UNITS) 50 MCG PO (08:24)
[2021-02-22] MEDS: Enoxaparin 40 MG/0.4 ML Syringe SC (08:24)
--- NOTE | 2021-02-22 10:55 | PCM.DC ---
Discharge Instructions Diet Discharge Diet: No restrictions Activity Discharge Activity: Return to Normal Activity Weight Bearing Status: Weight bearing as tolerated Dressing / Incision Call your doctor if you observe: Fever of 101 or Higher, Numbness or Tingling, Shortness of breath, Dizziness, Chest pain, Increased palpitations (irregular heartbeat) and Calf discomfort Follow Up Care Please Follow Up With: Primary care provider When: Within the next two weeks. Test Results: Test results from this visit will be discussed in further detail at your follow-up appointment, if applicable. Discharge Plan Admission Admit Date/Time: 02/21/21 20:47 Primary Reason for Your Visit: Shingles Attending Provider: Francis Hubbard Primary Care Provider: Zaki Graves Consulting Providers: Darron Whittington ; Jose Rogers Discharge Orders/Prescriptions Prescriptions: New valacyclovir [Valtrex] 1 gram tablet 1,000 mg PO TID Qty: 36 RF: 0 Continued calcium citrate 200 MG tablet 950 mg PO BID RF: 0 cholecalciferol (vitamin D3) 2,000 UNIT capsule 2,000 unit PO QHS RF: 0 trazodone 50 mg tablet 50 mg PO QHS RF: 0 Referrals / Follow Up: Zaki Graves MD [Primary Care Provider] - Within 2 Weeks Archie Vang MD [STAFF PHYSICIAN] - Within 2 Weeks Disposition Disposition (needs filled in before D/C Order can be placed): Home, Self Care
--- NOTE | 2021-02-22 13:18 | CHAPLAIN ---
Type of Pastoral Visit ___ Initial Visit ___ Follow-up Visit ___ On-call Visit ___ General Patient Visit ___ Spiritual Assessment ___ Family Conference ___ Bereavement ___ Rapid Response ___ Code Blue ___ Other (describe below) Pastoral Care Referral From ___ Patient ___ Family ___ Nurse ___ Physician ___ Clerk Television Production ___ Automotive Dismantler ___ Other (describe below) Sacrament/Intervention ___ Active listening ___ Anointing ___ Zoroastrianism ___ Bereavement ___ Communion ___ Johana exploration ___ ___ Life review ___ Prayer ___ Reconciliation ___ Sacrament of Sick ___ Supportive presence ___ Wedding ___ Other (describe below) Pastoral Comments unable to visit with this patient due to isolation precautions
[2021-02-22 13:29] VITALS: BP 106/67; PULSE 77; RESP 18; TEMP 37.7; O2SAT 94
--- NOTE | 2021-02-22 14:03 | PCM.DC.SUM ---
Documented by User: Zaki GARRETT 02/22/21 14:10 Providers Date of Admission: 02/21/21 Primary Care Physician: Dr. Zaki Graves MD Consultations 02/21/21 22:36 Consult: Infectious Disease Routine Consulting Provider: Darron Whittington Reason for Consult: Disseminated zoster EMERGENT Consult: No Notified: Yes Date Notified: 02/22/21 Time Notified: 07:57 Method of Notification: Answering Service Consult: Ophthamology Routine Consulting Provider: Jose Rogers Reason for Consult: Zoster with Zapien's sign EMERGENT Consult: No Notified: Yes Date Notified: 02/22/21 Time Notified: 08:08 Method of Notification: sewage reticulation drafting officer skyler Reason For Visit: DISSEMINATED ZOSTER Diagnosis Discharge Diagnosis (1) Disseminated herpes zoster: Status: Acute Code(s): B02.7 - Disseminated zoster (2) Thrombocytopenia: Status: Acute Code(s): D69.6 - Thrombocytopenia, unspecified (3) Zapien's sign present: Status: Acute Code(s): R68.89 - Other general symptoms and signs Medications at Discharge Home Medications calcium citrate 950 mg PO BID 02/22/18 cholecalciferol (vitamin D3) 2,000 unit PO QHS 02/22/18 trazodone 50 mg PO QHS 02/21/21 valacyclovir [Valtrex] 1,000 mg PO TID #36 tab 02/22/21 Hospital Course Summary of Care Provided Minutes Spent on Discharge: 35 Hospital Course: Disposition: Patient to discharge home. 1) disseminated herpes zoster Physical exam findings as below. No current signs of [place] Streeter syndrome. Ophthalmology consult was put in for an admission, pipe threading machine operator was contacted telephonically and agreed with current course and had no further recommendations, outside of outpatient follow-up. ID consult was obtained as well and recommendation was to continue Valtrex 1 g p.o. 3 times daily for 12 days. Patient is to follow-up with PCP and pipe threading machine operator within the next 2 weeks. 2) thrombocytopenia Platelet count currently 67, 71 admission. Possibly related to viral illness, patient does have a history of myelodysplastic syndrome. Patient is to follow-up with primary care provider within the next 2 weeks. Patient seen by Zaki Rob PA-C, under the supervision of Dr. Kittoe. Physical Exam Narrative Patient is a 66-year-old male comfortably resting in bed, alert and orient x3. Patient reports significant improvement in his inflammation and pain from admission. Denies development of any new symptoms overnight. Denies chest pain, shortness of breath, palpitations, hemoptysis, sputum production, fever, chills, N/V/D. Const alert, oriented x3 and no apparent distress HEENT normocephalic, head/scalp atraumatic and hearing grossly normal bilaterally HEENT Narrative: Some small erythematous patches on the left side of the face not involving the left thigh or oropharynx, positive Zapien sign with zoster involving the tip of his nose. Eyes PERRL, EOMs intact bilaterally and conjunctivae normal Neck no lymphadenopathy, supple and no JVD Resp normal respiratory effort, no retractions and no use of accessory muscles Cardio regular rate, regular rhythm and no JVD GI normal to inspection, nondistended, normoactive bowel sounds, soft to palpation and non-tender Extremity normal to inspection, full ROM and no clubbing, cyanosis or edema Skin Skin Narrative: Vesicular rash right leg in the posterior buttock down the right posterior thigh into the right calf, small early vesicles in his right arm, vesicle on the tip of his nose and on the left side of his face without any ocular involvement or oral involvement at this time, no left ear involvement either Neuro CN's II-XII intact bilaterally Psych affect normal Weight / BMI Weight Weight: 220 lb 3.869 oz Body Mass Index (BMI) 28.3 ABG / Lab / Microbiology Data Result Diagrams: 02/22/21 06:00 02/22/21 06:00 Laboratory: Laboratory Results - last 24 hr 02/21/21 19:05: WBC 4.5, RBC 4.26 L, Hgb 14.2, Hct 41.8, MCV 98.1 H, MCH 33.3 H, MCHC 34.0, RDW Std Deviation 46.2 H, RDW Coeff of Kaitlyn 12.9, Plt Count 71 L, MPV 9.5, Immature Gran % (Auto) 0.200, Neut % (Auto) 42.5 L, Lymph % (Auto) 44.6 H, Schleicher % (Auto) 12.1 H, Eos % (Auto) 0.4, Baso % (Auto) 0.2, Absolute Neuts (auto) 1.9 L, Absolute Lymphs (auto) 2.02, Nucleated RBC % 0, Differential Comment SCANNED, Platelet Estimate MOD DEC 02/21/21 19:05: Sodium 138, Potassium 3.7, Chloride 103, Carbon Dioxide 28.0, Anion Gap 7, BUN 23 H, Creatinine 1.22, Estim Creat Clear Calc 71.12, Est GFR (MDRD) Af Amer 77, Est GFR (MDRD) Non-Af 64, BUN/Creatinine Ratio 18.9, Glucose 124 H, Calcium 8.7, Total Bilirubin 0.70, AST 24, ALT 25, Alkaline Phosphatase 171 H, Total Protein 6.5, Albumin 3.3, Globulin 3.2, Albumin/Globulin Ratio 1.0 02/21/21 19:05: Lactic Acid 1.3 02/22/21 06:00: WBC 4.8, RBC 4.07 L, Hgb 13.5, Hct 38.9 L, MCV 95.6 H, MCH 33.2 H, MCHC 34.7, RDW Std Deviation 45.1 H, RDW Coeff of Kaitlyn 12.8, Plt Count 67 L, MPV 9.5, Immature Gran % (Auto) 0.600, Neut % (Auto) 37.5 L, Lymph % (Auto) 49.0 H, Schleicher % (Auto) 12.1 H, Eos % (Auto) 0.4, Baso % (Auto) 0.4, Absolute Neuts (auto) 1.8 L, Absolute Lymphs (auto) 2.34, Nucleated RBC % 0 02/22/21 06:00: Sodium 138, Potassium 3.8, Chloride 106, Carbon Dioxide 26.0, Anion Gap 6, BUN 18, Creatinine 1.13, Estim Creat Clear Calc 76.78, Est GFR (MDRD) Af Amer 84, Est GFR (MDRD) Non-Af 69, BUN/Creatinine Ratio 15.9, Glucose 131 H, Calcium 8.6, Phosphorus 3.1, Magnesium 1.9, Total Bilirubin 0.90, Direct Bilirubin 0.18, AST 23, ALT 25, Alkaline Phosphatase 137 H, Total Protein 6.1 L, Albumin 3.0 L, Globulin 3.1 Microbiology: Microbiology 02/21/21 19:20 Wound - Leg Wound Culture - Preliminary No growth-Final to follow D/C Instructions Discharge Diet: No restrictions Weight Bearing Status: Weight bearing as tolerated Call your doctor if you observe: Fever of 101 or Higher, Numbness or Tingling, Shortness of breath, Dizziness, Chest pain, Increased palpitations (irregular heartbeat) and Calf discomfort Please Follow Up With: Primary care provider When: Within the next two weeks. Meaningful Use Info Meaningful Use Diagnoses (Choose all that apply): None applicable Discharge Plan Admission Admit Date/Time: 02/21/21 20:47 Primary Reason for Your Visit: Shingles Attending Provider: Francis Hubbard Primary Care Provider: Zaki Graves Consulting Providers: Darron Whittington ; Jose Rogers Discharge Orders/Prescriptions Prescriptions: New valacyclovir [Valtrex] 1 gram tablet 1,000 mg PO TID Qty: 36 RF: 0 Continued calcium citrate 200 MG tablet 950 mg PO BID RF: 0 cholecalciferol (vitamin D3) 2,000 UNIT capsule 2,000 unit PO QHS RF: 0 trazodone 50 mg tablet 50 mg PO QHS RF: 0 Referrals / Follow Up: Zaki Graves MD [Primary Care Provider] - Within 2 Weeks Archie Vang MD [STAFF PHYSICIAN] - Within 2 Weeks Disposition Disposition (needs filled in before D/C Order can be placed): Home, Self Care Documented by User: Dr. Francis Hubbard MD 02/22/21 15:02 Providers Date of Admission: 02/21/21 Reason For Visit: DISSEMINATED ZOSTER Medications at Discharge Home Medications calcium citrate 950 mg PO BID 02/22/18 cholecalciferol (vitamin D3) 2,000 unit PO QHS 02/22/18 trazodone 50 mg PO QHS 02/21/21 valacyclovir [Valtrex] 1,000 mg PO TID #36 tab 02/22/21 Hospital Course Operations None Summary of Care Provided Minutes Spent on Discharge: 35 Hospital Course: This patient was seen in conjunction with Zaki Rob PA-C. I have independently interviewed and examined the patient and reviewed pertinent historical, laboratory, and other data. Please refer to Zaki Rob PA-C's note for details of this patient's presentation, findings, and recommendations. I have reviewed Zaki Rob PA-C's note and concur with documented findings. In brief, patient is a 65-year-old gentleman with history of myelodysplastic syndrome admitted with disseminated varicella-zoster infection admitted to regular nursing floor for further management. Patient was started on IV valacyclovir with significant improvement discharged home a day after his admission Hospital course: As documented ABG / Lab / Microbiology Data Result Diagrams: 02/22/21 06:00 02/22/21 06:00 Discharge Plan Admission Admit Date/Time: 02/21/21 20:47 Primary Reason for Your Visit: Shingles Attending Provider: Francis Hubbard Primary Care Provider: Zaki Graves Consulting Providers: Darron Whittington ; Jose Rogers Discharge Orders/Prescriptions Prescriptions: New valacyclovir [Valtrex] 1 gram tablet 1,000 mg PO TID Qty: 36 RF: 0 Continued calcium citrate 200 MG tablet 950 mg PO BID RF: 0 cholecalciferol (vitamin D3) 2,000 UNIT capsule 2,000 unit PO QHS RF: 0 trazodone 50 mg tablet 50 mg PO QHS RF: 0 Referrals / Follow Up: Zaki Graves MD [Primary Care Provider] - Within 2 Weeks Archie Vang MD [STAFF PHYSICIAN] - Within 2 Weeks Disposition Disposition (needs filled in before D/C Order can be placed): Home, Self Care Charges/Coding Visit Charges Inpatient E&M: 62523 Disch Hosp Hospital Course Consultations Consultations: Consultations 02/21/21 22:36 Consult: Infectious Disease Routine Consulting Provider: Darron Whittington Reason for Consult: Disseminated zoster EMERGENT Consult: No Notified: Yes Date Notified: 02/22/21 Time Notified: 07:57 Method of Notification: Answering Service Consult: Ophthamology Routine Consulting Provider: Jose Rogers Reason for Consult: Zoster with Zapien's sign EMERGENT Consult: No Notified: Yes Date Notified: 02/22/21 Time Notified: 08:08 Method of Notification: sewage reticulation drafting officer [facility] None
--- NOTE | 2021-02-22 14:45 | PHA.DC.MR ---
Pharmacy Service has performed discharge medication reconciliation for this patient. The patient's discharge medication list was reviewed for discrepancies and discrepancies were resolved. Home Medications calcium citrate 950 mg PO BID 02/22/18 cholecalciferol (vitamin D3) 2,000 unit PO QHS 02/22/18 trazodone 50 mg PO QHS 02/21/21 valacyclovir [Valtrex] 1,000 mg PO TID #36 tab 02/22/21
--- NOTE | 2021-02-22 18:03 | CON.PCM.ID_ITS ---
Assessment & Plan Assessment/Plan (1) Disseminated herpes zoster: PLAN: Improved on iv acyclovir. Ok for home with po valtrex 1gm tid for 12 more days. Encouraged him to get 3rd dose Moderna for covid given immunosupp ression. Will follow as needed, thank you, d/w primary team (2) S/P bone marrow transplant: HPI Consult Data Date of Consult: 02/22/21 HPI Narrative HPI Narrative: HOWIE LOVELACE, is a 65 M with alloSCT for MDS at [facility] [address] Helton. Daughter was donor. Minimal GHVD, no infectious complications. Had shingrix in 2018 and 2019. Has had two doses moderna for covid. No h/o shingles. On 02/17, noticed rash on back of RLE. Minimal pain. Rash increased, then developed on arm, forehead, tip of nose. Formed vesicles, then started to crust. No fever, no headache, no vision changes, no hearing changes, no neck pain. Saw derm, told to go to ED. Admitted on iv acyclovir for disseminated zoster. No cough or SOB. Feeling better, no new vesicles today. Full ROS performed and neg except as noted above. [facility] Medical History Acute respiratory failure SANG (acute kidney injury) Anxiety Arthralgia Bacteremia Benign hypertension CINV (chemotherapy-induced nausea and vomiting) Debility Electrolyte abnormality Epistaxis H/O Escherichia coli septicemia Hypercholesteremia Idiopathic pneumonia syndrome MDS (myelodysplastic syndrome) Pancytopenia Pulmonary infiltrate SOB (shortness of breath) V tach Home Medications calcium citrate 950 mg PO BID 02/22/18 [History Last Taken 02/21/21] cholecalciferol (vitamin D3) 2,000 unit PO QHS 02/22/18 [History Last Taken 02/21/21] trazodone 50 mg PO QHS 02/21/21 [History Last Taken 02/20/21] valacyclovir [Valtrex] 1,000 mg PO TID #36 tab 02/22/21 [Rx Last Taken Unknown] Allergy/AdvReac Type Severity Reaction Status Date / Time Penicillins AdvReac Unknown Other Verified 02/21/21 22:47 Family History Father Emphysema lung Sister Cancer Surgical History (Updated 02/21/21 @ 23:00 by Priscilla Cunha) H/O knee surgery History of bronchoscopy History of tonsillectomy insertion cvc tunneled removal of cvc tunneled S/P bone marrow transplant Social History (Updated 02/21/21 @ 23:00 by Priscilla Cunha) household members: spouse Smoking Status: Never smoker Physical Exam Const alert, oriented x3 and no apparent distress General Appearance: cooperative Exam Limitations: no limitations HEENT normocephalic and head/scalp atraumatic Eyes PERRL and EOMs intact bilaterally Neck supple and No nodes Resp normal air movement and clear to auscultation bilaterally Cardio regular rate and regular rhythm GI normal to inspection, nondistended, normoactive bowel sounds Extremity no clubbing, cyanosis or edema Skin Skin Narrative: Scabs on forehead and nose. Some on arm. Large area on back of RLE, mostly crusted, some intact vesicles. Neuro CN's II-XII intact bilaterally Psych mental status grossly normal Lab / Micro Data Result Diagrams: 02/22/21 06:00 02/22/21 06:00 Labs: Laboratory Results - last 24 hr 02/21/21 19:05: WBC 4.5, RBC 4.26 L, Hgb 14.2, Hct 41.8, MCV 98.1 H, MCH 33.3 H, MCHC 34.0, RDW Std Deviation 46.2 H, RDW Coeff of Kaitlyn 12.9, Plt Count 71 L, MPV 9.5, Immature Gran % (Auto) 0.200, Neut % (Auto) 42.5 L, Lymph % (Auto) 44.6 H, [place] % (Auto) 12.1 H, Eos % (Auto) 0.4, Baso % (Auto) 0.2, Absolute Neuts (auto) 1.9 L, Absolute Lymphs (auto) 2.02, Nucleated RBC % 0, Differential Comment SCANNED, Platelet Estimate MOD DEC 02/21/21 19:05: Sodium 138, Potassium 3.7, Chloride 103, Carbon Dioxide 28.0, Anion Gap 7, BUN 23 H, Creatinine 1.22, Estim Creat Clear Calc 71.12, Est GFR (MDRD) Af Amer 77, Est GFR (MDRD) Non-Af 64, BUN/Creatinine Ratio 18.9, Glucose 124 H, Calcium 8.7, Total Bilirubin 0.70, AST 24, ALT 25, Alkaline Phosphatase 171 H, Total Protein 6.5, Albumin 3.3, Globulin 3.2, Albumin/Globulin Ratio 1.0 02/21/21 19:05: Lactic Acid 1.3 02/22/21 06:00: WBC 4.8, RBC 4.07 L, Hgb 13.5, Hct 38.9 L, MCV 95.6 H, MCH 33.2 H, MCHC 34.7, RDW Std Deviation 45.1 H, RDW Coeff of Kaitlyn 12.8, Plt Count 67 L, MPV 9.5, Immature Gran % (Auto) 0.600, Neut % (Auto) 37.5 L, Lymph % (Auto) 49.0 H, [place] % (Auto) 12.1 H, Eos % (Auto) 0.4, Baso % (Auto) 0.4, Absolute Neuts (auto) 1.8 L, Absolute Lymphs (auto) 2.34, Nucleated RBC % 0 02/22/21 06:00: Sodium 138, Potassium 3.8, Chloride 106, Carbon Dioxide 26.0, Anion Gap 6, BUN 18, Creatinine 1.13, Estim Creat Clear Calc 76.78, Est GFR (MDRD) Af Amer 84, Est GFR (MDRD) Non-Af 69, BUN/Creatinine Ratio 15.9, Glucose 131 H, Calcium 8.6, Phosphorus 3.1, Magnesium 1.9, Total Bilirubin 0.90, Direct Bilirubin 0.18, AST 23, ALT 25, Alkaline Phosphatase 137 H, Total Protein 6.1 L, Albumin 3.0 L, Globulin 3.1 Micro: Microbiology 02/21/21 19:20 Wound - Leg Gram Stain - Final 02/21/21 19:20 Wound - Leg Wound Culture - Preliminary No growth-Final to follow
== END 2021-02-22 10:55 | disposition home or self-care (01) ==
LOC: ED 20:27 → PCU 21:00
PROVIDERS: Admitting Provider Internal Medicine; Emergency Provider Emergency Medicine; PCP Family Medicine; Visit Provider Internal Medicine
DX: B02.7 Disseminated zoster (principal); D46.9 Myelodysplastic syndrome, unspecified; E78.00 Pure hypercholesterolemia, unspecified; F41.9 Anxiety disorder, unspecified; N18.2 Chronic kidney disease, stage 2 (mild); I12.9 Hypertensive chronic kidney disease with stage 1 through stage 4 chronic kidney disease, or unspecified chronic kidney disease; D61.818 Other pancytopenia; Z79.899 Other long term (current) drug therapy; Z94.81 Bone marrow transplant status; R68.89 Other general symptoms and signs
CPT/HCPCS: 36415; 80048; 80053; 80076; 83605; 83735; 84100; 85025; 87040; 87070; 87205; 87252; 96365; 96366; 96372; 99218; 99251; 99284; J7050; A4216; G0378; G0463

== ENCOUNTER → 2021-04-19 | Outpatient (CLI) | payer OTHER, SELFPAY | END | disposition home or self-care (01) | PROVIDERS: PCP Family Medicine; Visit Provider Family Medicine | DX: J40 Bronchitis, not specified as acute or chronic (principal) | CPT/HCPCS: 87635; U0005; U0003 ==

== ENCOUNTER → 2022-03-09 | Outpatient (CLI) | payer OTHER, SELFPAY | END | disposition home or self-care (01) | PROVIDERS: PCP Family Medicine | DX: D72.820 Lymphocytosis (symptomatic) (principal); Z94.81 Bone marrow transplant status | CPT/HCPCS: 36415 ==

== ENCOUNTER → 2022-12-14 | Outpatient (CLI) | payer OTHER, SELFPAY ==
[2022-12-14 12:40] LABS: Absolute Lymphocyte Count 7.44 X10^3/uL (0.83-4.51); Absolute Neutrophil Count 1.3 X10^3/uL (2.0-7.7); Basophil# 0.02 X10^3/uL; Basophil% 0.2 % (0-1); Eosinophil# 0.05 X10^3/uL; Eosinophils% 0.5 % (0-5); Hematocrit 41.8 % (40-54); Lymphocyte # 7.44 X10^3/ul (0.83-4.51); Lymphocyte % 78.6 % (19-41); Mean Corp Hgb Conc 33.5 g/dL (32-36); Mean Corpuscular Hgb 33.4 pg (27.0-32.0); Mean Corpuscular Volume 99.8 fL (80-94); Mean Platelet Vol. 9.1 fl (6.2-12.0); Monocyte# 0.58 X10^3/uL; Monocyte% 6.1 % (0-10); NRBC Flagged by Analyzer 0 % (0-5); Neutrophil # 1.32 X10^3/uL (2.7-7.7); Neutrophil % 14.1 % (47-70); POSITIVE DIFFERENTIAL YES; POSITIVE MORPHOLOGY YES; Platelet Count 122 K/mm3 (150-450); RBC Distribution Width CV 14.5 % (11.6-14.6); Red Blood Count 4.19 M/mm3 (4.6-6.2); White Blood Count 9.5 K/mm3 (4.4-11.0)
[2022-12-14 12:42] LABS: Differential Indicated SCAN CRITERIA MET
[2022-12-14 13:10] LABS: Differential Comment SCANNED
== END | disposition home or self-care (01) ==
LOC: LAB 12:04
PROVIDERS: PCP Family Medicine; Visit Provider Internal Medicine Hematology
DX: C91.Z0 Other lymphoid leukemia not having achieved remission (principal)
CPT/HCPCS: 36415; 85025

== ENCOUNTER → 2023-03-20 | Outpatient (CLI) | payer OTHER, SELFPAY ==
[2023-03-20 13:02] LABS: AST(SGOT) 27 U/L (15-37); Alanine Aminotransfer ALT/SGPT 32 U/L (16-61); Albumin, Serum 3.7 g/dL (3.2-5.0); Alkaline Phosphatase 334 U/L (45-117); Anion Gap 3 (5-15); BUN 27 mg/dL (7-18); BUN/Creat Ratio 25.7 RATIO (10-20); Calcium,Total 8.9 mg/dL (8.5-10.1); Chloride 105 mmol/L (98-107); Cholesterol 148 mg/dL (200); Creatinine, Serum 1.05 mg/dL (0.70-1.30); EST Glomerular Filtration Rate 75 mL/min (>60); Est Glom Filt Rate - Afr Amer 91 mL/min (>60); Globulin 3.7 g/dL (2.2-4.2); Glucose 91 mg/dL (74-106); High Density Lipoprotein 31 mg/dL; Potassium 4.5 mmol/L (3.5-5.1); Protein, Total 7.4 g/dL (6.4-8.2); Sodium Level 138 mmol/L (136-145); Triglycerides 121 mg/dL; Very Low Density Lipoprotein 24 mg/dL (5-40)
== END | disposition home or self-care (01) ==
LOC: MTLAB 10:07
PROVIDERS: PCP Family Medicine; Referring Provider Family Medicine; Visit Provider Family Medicine
DX: D46.9 Myelodysplastic syndrome, unspecified (principal); Z12.5 Encounter for screening for malignant neoplasm of prostate; Z13.220 Encounter for screening for lipoid disorders
CPT/HCPCS: 36415; 80053; 80061; 84153; G0103

== ENCOUNTER → 2023-06-04 | Outpatient (CLI) | payer OTHER, SELFPAY ==
--- NOTE | 2023-06-04 11:55 | RAD_ITS ---
STUDY: X-RAY - PARANASAL SINUSES REASON FOR EXAM: Male, 67 years old. Sinusitis TECHNIQUE: 3 view(s) of the paranasal sinuses were obtained. COMPARISON: None. FINDINGS: Partial opacification of the maxillary sinuses. Air-fluid level is seen in the left frontal sinus. Normal visualized facial bones. The soft tissue structures are unremarkable. RAD/Sinuses min 3 Views IMPRESSION: Left frontal and bilateral maxillary sinusitis. Electronically Signed: Thomas Barrow MD at 14:03 EST ,
== END | disposition home or self-care (01) ==
LOC: MTRAD 11:50
PROVIDERS: PCP Family Medicine; Referring Provider Family Medicine; Visit Provider Family Medicine
DX: J32.9 Chronic sinusitis, unspecified (principal)
CPT/HCPCS: 70220

== ENCOUNTER 2024-02-13 19:26 | Inpatient (IN) | payer OTHER, SELFPAY ==
[2024-02-13] VITALS (11 sets, daily range): BP systolic 100–127; BP diastolic 63–109; PULSE 90–135; RESP 18–32; TEMP 36.6–38.8; O2SAT 82–97; BMI 26.6
[2024-02-13] MEDS: Ipratropium/Albuterol Sulfate 3 ML AMPUL.NEB INHALATION (20:21)
--- NOTE | 2024-02-13 20:30 | RAD_ITS ---
STUDY: X-RAY CHEST REASON FOR EXAM: Male, 68 years old. hypoxia fever TECHNIQUE: AP portable COMPARISON: May 18, 2019 FINDINGS: Nonspecific elevation of the right hemidiaphragm. Diffuse interstitial thickening is seen bilaterally more severe in the left lung which may be consistent with viral pneumonia. There is no demonstrated pleural abnormality. Normal size heart. Normal mediastinum and ofelia. Normal visualized pulmonary arteries. Normal visualized aortic arch and descending thoracic aorta. Normal visualized thoracic spine. Normal visualized ribs, clavicles, and shoulders. There is no demonstrated abnormality of the visualized soft tissue structures of the upper abdomen. There are similar findings on earlier study suggesting chronic changes and there is improved aeration in the right lung with slightly increased airspace disease in the left lung. RAD/Chest 1 View (Portable) IMPRESSION: Chronic interstitial changes with probable superimposed acute pneumonia. Electronically Signed: Pete Menendez MD at 20:50 EDT ,
[2024-02-13 20:35] LABS: Absolute Lymphocyte Count 4.97 X10^3/uL (0.83-4.51); Absolute Neutrophil Count 5.7 X10^3/uL (2.0-7.7); Basophil# 0.04 X10^3/uL; Basophil% 0.3 % (0-1); Eosinophil# 0.21 X10^3/uL; Eosinophils% 1.8 % (0-5); Hematocrit 38.7 % (40-54); Hemoglobin 13.5 g/dL (13.0-16.5); Lymphocyte # 4.97 X10^3/ul (0.83-4.51); Lymphocyte % 42.6 % (19-41); Mean Corp Hgb Conc 34.9 g/dL (32-36); Mean Corpuscular Hgb 32.9 pg (27.0-32.0); Mean Corpuscular Volume 94.4 fL (80-94); Mean Platelet Vol. 9.6 fl (6.2-12.0); Monocyte# 0.66 X10^3/uL; Monocyte% 5.7 % (0-10); NRBC Flagged by Analyzer 0 % (0-5); Neutrophil # 5.72 X10^3/uL (2.7-7.7); Platelet Count 100 K/mm3 (150-450); RBC Distribution Width CV 14.3 % (11.6-14.6); RBC Distribution Width SD 49.2 fl (35.1-43.9); White Blood Count 11.7 K/mm3 (4.4-11.0)
[2024-02-13] MEDS: Acetaminophen 500 MG Tablet 1000 MG PO (20:36)
[2024-02-13 20:38] LABS: International Normalized Ratio 1.5; Prothrombin Time (Protime)PT. 17.7 SECONDS (11.7-14.9)
[2024-02-13 20:39] LABS: Partial Thromboplast Time 32.5 Seconds (24.1-36.2)
[2024-02-13] MEDS: 0.9% Normal Saline (1000mL) 1,000 ML 999 ML IV (20:41)
[2024-02-13 20:48] LABS: ALB/GLOB Ratio 0.8 RATIO (0.9-2.4); AST(SGOT) 26 U/L (15-37); Alanine Aminotransfer ALT/SGPT 21 U/L (16-61); Albumin, Serum 3.2 g/dL (3.2-5.0); Alkaline Phosphatase 146 U/L (45-117); Anion Gap 7 (5-15); BUN 28 mg/dL (7-18); BUN/Creat Ratio 21.4 RATIO (10-20); Chloride 103 mmol/L (98-107); Creatinine, Serum 1.31 mg/dL (0.70-1.30); EST Glomerular Filtration Rate 58 mL/min (>60); Est Glom Filt Rate - Afr Amer 70 mL/min (>60); Estimated Creatinine Clearance 63.62 ml/min; Glucose 207 mg/dL (74-106); Potassium 4.1 mmol/L (3.5-5.1); Protein, Total 7.2 g/dL (6.4-8.2); Sodium Level 133 mmol/L (136-145); Troponin-I HS 24 pg/mL (3.0-78.0)
--- NOTE | 2024-02-13 20:50 | ED.VIS.DYS ---
HPI History of Present Illness Chief Complaint: Shortness of Breath Informant: patient Narrative Narrative: 68-year-old male presenting to the emergency room with fatigue and shortness of breath. Patient states that on Saturday evening him and his developed runny nose slight cough and is now significantly fatigued. Notes he had a small amount of diarrhea. States that he does not wear oxygen at home. He has a history of myelodysplastic syndrome hypercholesterolemia hypertension. However he is only currently treated for trazodone at night for sleep. The patient currently denies any chest pain. He notes minimal sputum production. He has not had any Tylenol or Motrin in the past 24 hours. He was noted to be hypoxic and febrile and tachycardic by nursing. He denies any chest pain. [facility] Medical History Zapien's sign present Thrombocytopenia Disseminated herpes zoster V tach Pancytopenia Electrolyte abnormality CINV (chemotherapy-induced nausea and vomiting) H/O Escherichia coli septicemia Benign hypertension Epistaxis Bacteremia Arthralgia SANG (acute kidney injury) Idiopathic pneumonia syndrome Acute respiratory failure Hypercholesteremia Pulmonary infiltrate Anxiety SOB (shortness of breath) Debility MDS (myelodysplastic syndrome) Home Medications ?Medication ?Instructions ?Recorded ?Last Taken ?Type calcium citrate 200 mg (950 mg) 950 mg PO BID supplement 02/22/18 02/21/21 History tablet cholecalciferol (vitamin D3) 50 2,000 unit PO QHS supplement 02/22/18 02/21/21 History mcg (2,000 unit) capsule trazodone 50 mg tablet 50 mg PO QHS sleep 02/21/21 02/20/21 History Allergy/AdvReac Type Severity Reaction Status Date / Time Penicillins AdvReac Unknown Other Verified 02/13/24 19:27 Family History Father Emphysema lung Sister Cancer Surgical History History of tonsillectomy H/O knee surgery insertion cvc tunneled removal of cvc tunneled History of bronchoscopy S/P bone marrow transplant Social History household members: spouse Smoking Status: Never smoker ROS ROS ED ROS Narrative Generalized fatigue Constitutional Constitutional ED: Reports chills and fever(s); Denies weight loss Eyes Eyes: Denies change in vision or diplopia ENT ENT ED: Reports rhinorrhea; Denies ear pain or sore throat Cardiovascular Cardiovascular: Denies chest pain, orthopnea, palpitations or racing heartbeat Respiratory/Chest Respiratory/Chest: Reports cough, dyspnea and dyspnea on exertion; Denies orthopnea Gastrointestinal Gastrointestinal: Reports diarrhea; Denies abdominal pain, nausea or vomiting Genitourinary Genitourinary ED: Denies dysuria, hematuria or urinary frequency Musculoskeletal Musculoskeletal: Reports myalgias; Denies arthralgias Integumentary Denies abscess or rash Neurologic Neurologic: Denies headache(s) or weakness Psychiatric Psychiatric: Denies anxiety, depression, suicidal ideation or suicidal thoughts Endocrine Endocrinology: Denies polydipsia, polyphagia or polyuria Allergic/Immunologic Allergic/Immunologic ED: Denies mouth swelling, tongue swelling or urticaria EXAM Physical Exam Const Vital Signs: 02/13/24 19:27 02/13/24 19:27 02/13/24 19:41 Temperature 98.8 F Temperature Source Oral Pulse Rate 135 H Respiratory Rate 28 H Respiratory Effort Short of Breath Respiratory Pattern Tachypnea Blood Pressure 127/109 H Blood Pressure Mean 115 Pulse Ox 82 91 Oxygen Delivery Method Room Air Nasal Cannula Nasal Cannula Oxygen Flow Rate (L/min) 5 5 02/13/24 20:03 02/13/24 20:10 02/13/24 20:20 Temperature 101.8 F H Temperature Source Oral Pulse Rate 117 H Respiratory Rate 20 H Respiratory Effort Respiratory Pattern Blood Pressure Blood Pressure Mean Pulse Ox Oxygen Delivery Method Nasal Cannula Oxygen Flow Rate (L/min) 02/13/24 20:20 02/13/24 20:30 02/13/24 21:00 Temperature 100.5 F H 98.6 F Temperature Source Oral Oral Pulse Rate 110 H 108 H Respiratory Rate 32 H 26 H Respiratory Effort Respiratory Pattern Blood Pressure 113/76 113/76 Blood Pressure Mean 88 88 Pulse Ox 94 96 95 Oxygen Delivery Method Nasal Cannula Nasal Cannula Nasal Cannula Oxygen Flow Rate (L/min) 3 3 5 02/13/24 22:00 02/13/24 22:07 02/13/24 23:00 Temperature 98.3 F Temperature Source Oral Pulse Rate 107 H 94 101 H Respiratory Rate 25 H 20 H 24 H Respiratory Effort Respiratory Pattern Blood Pressure 114/63 103/64 115/82 H Blood Pressure Mean 80 77 93 Pulse Ox 94 96 97 Oxygen Delivery Method Nasal Cannula Room Air Nasal Cannula Oxygen Flow Rate (L/min) 5 5 02/13/24 23:00 Temperature 98.3 F Temperature Source Oral Pulse Rate 105 H Respiratory Rate 25 H Respiratory Effort Respiratory Pattern Blood Pressure 115/83 H Blood Pressure Mean 93 Pulse Ox 97 Oxygen Delivery Method Nasal Cannula Oxygen Flow Rate (L/min) Positive well nourished and well developed General Appearance ED: well developed HEENT Reports normocephalic, head/scalp atraumatic and moist mucous membranes Eyes PERRL and EOMs intact bilaterally Neck no lymphadenopathy, supple and no JVD Resp clear to auscultation bilaterally Resp Narrative: Patient appears tachypneic but not distress Cardio regular rate, regular rhythm and no murmurs Rate: tachycardic GI normal to inspection, nondistended, normoactive bowel sounds and non-tender Palpation: soft Back/Spine no CVA tenderness and normal ROM Extremity normal to inspection General Extremety ED: Negative for edema General Extremity: Negative for edema Neuro oriented x3 and CN's II-XII intact bilaterally Sensorium / Orientation: alert Motor Exam: strength 5/5 throughout Psych mental status grossly normal Mood & Affect: Negative for depressed or tearful Skin no rashes or lesions noted and no wounds MDM MDM MDM Narrative Medical decision making narrative: Differential diagnosis includes but not limited to viral syndrome viral pneumonia bacterial pneumonia dehydration sepsis pleural effusion pulmonary edema CDN ARDS White count 11.7 hemoglobin 13.5 platelet count is 100 INR 1.5 with a PTT 32.5 sodium 133 BUN 28 creatinine 1.31 lactic acid is normal at 1.3 urinalysis 5-10 white cells 1+ bacteria negative nitrates blood and urine culture sent. COVID influenza and RSV swab was negative my independent interpretation the chest x-ray is multifocal opacities. CT of the chest does not demonstrate any pulmonary embolism. Patient received a DuoNeb IV fluids Tylenol fever is down heart rate is down he is 96% on 5 L. The patient's chest x-ray and symptoms remind a very much of classical COVID. Patient received a dose of Decadron Rocephin and azithromycin after discussion with the hospitalist. I spoke with her pharmacy we do not have Paxlovid available to us. Because of the hypoxia patient will be admitted to the hospital History & Record Review Discussion w/independent historian: Patient Additional record(s) reviewed:: Prior outpatient record and Prior labs Lab Data Attestation: I reviewed the patient's lab results. Labs: Laboratory Results - last 24 hr 02/13/24 02/13/24 20:20 21:02 WBC 11.7 H RBC 4.10 L Hgb 13.5 Hct 38.7 L MCV 94.4 H MCH 32.9 H MCHC 34.9 RDW Std Deviation 49.2 H RDW Coeff of Kaitlyn 14.3 Plt Count 100 L MPV 9.6 Immature Gran % (Auto) 0.600 Neut % (Auto) 49.0 Lymph % (Auto) 42.6 H [place] % (Auto) 5.7 Eos % (Auto) 1.8 Baso % (Auto) 0.3 Absolute Neuts (auto) 5.7 Absolute Lymphs (auto) 4.97 H Nucleated RBC % 0 PT 17.7 H INR 1.5 APTT 32.5 Sodium 133 L Potassium 4.1 Chloride 103 Carbon Dioxide 23.0 Anion Gap 7 BUN 28 H Creatinine 1.31 H Estim Creat Clear Calc 63.62 Est GFR (MDRD) Af Amer 70 Est GFR (MDRD) Non-Af 58 L BUN/Creatinine Ratio 21.4 H Glucose 207 H Lactic Acid 1.3 Calcium 9.0 Total Bilirubin 1.40 H AST 26 ALT 21 Alkaline Phosphatase 146 H Troponin I High Sens 24 Total Protein 7.2 Albumin 3.2 Globulin 4.0 Albumin/Globulin Ratio 0.8 L Urine Color Yellow Urine Clarity Sl. Cloudy Urine pH 5.0 Ur Specific [place] 1.025 Urine Protein 100 H Urine Glucose (UA) Normal Urine Ketones 5 H Urine Occult Blood 150 H Urine Nitrite Negative Urine Bilirubin 1 H Urine Urobilinogen 1 H Ur Leukocyte Esterase 25 H Urine RBC 0-5 SEEN Urine WBC 5-10 SEEN Ur Squamous Epith Cells 0-5 SEEN Amorphous Sediment 1+ Urine Bacteria 1+ Fine Granular Casts 0-5 SEEN Urine Mucus RARE Radiography Diagnostic Testing: Clinical Impression(s) from Imaging Studies Chest X-Ray 02/13/24 20:30 IMPRESSION: Chronic interstitial changes with probable superimposed acute pneumonia. Electronically Signed: Pete Menendez MD at 20:50 EDT Reading Location ID and State: [facility] / [place] Tel [phone], Service support , Chest CTA 02/13/24 21:11 IMPRESSION: Probable chronic interstitial and emphysematous changes with superimposed viral pneumonia. No evidence for pulmonary embolus Electronically Signed: Pete Menendez MD at 22:07 EDT , EKG Initial EKG: Attestation: I personally reviewed and interpreted this EKG as follows: Comments: Sinus tachycardia ventricular rate of 128 bpm Management Discussion w/another healthcare provider: Hospitalist (Dr. Do) Discharge Plan Disposition Disposition: Acute Care Hospital [facility] [facility] Discharge Date/Time: 02/13/24 23:24
[2024-02-13 20:54] LABS: Lactic Acid 1.3 mmol/L (0.4-1.9)
--- NOTE | 2024-02-13 21:11 | CT_ITS ---
STUDY: CTA CHEST REASON FOR EXAM: Male, 68 years old. pulmonary embolism, abnormal chest xray RADIATION DOSAGE (If Supplied By Facility): CTDIvol = ( 13.78 ) mGy, DLP = ( 586.56 ) mGycm TECHNIQUE: The examination was performed with the intravenous administration of IV 100mL Isovue-370. Post-processing of the angiographic images was performed, with multiplanar reformation and 3D reconstruction. Individualized dose optimization techniques were used for this CT. COMPARISON: None. FINDINGS: Normal enhancement of the main pulmonary artery and right and left pulmonary arteries. Normal enhancement of the bilateral peripheral pulmonary arteries. There is no demonstrated pulmonary embolism. Normal thoracic aorta and visualized great vessels. There is no demonstrated aortic dissection. Heart size is normal. There is minor coronary artery calcification Subcentimeter mediastinal nodes likely benign. Normal hilar regions. Normal visualized trachea and bronchi. The lungs are well expanded. There are bilateral reticulonodular interstitial infiltrates with emphysematous changes and multifocal patchy and confluent zones of groundglass opacity more pronounced in the upper lobes bilaterally worse on the left which may be consistent with chronic interstitial changes with superimposed viral pneumonia Normal pleura. Normal chest wall structures. Dorsal spine demonstrates degenerative change Normal visualized upper abdomen. CT/CTA Chest W/WO Contrast IMPRESSION: Probable chronic interstitial and emphysematous changes with superimposed viral pneumonia. No evidence for pulmonary embolus Electronically Signed: Pete Menendez MD at 22:07 EDT ,
[2024-02-13 21:21] LABS: Color, Urine Yellow (Yellow); Glucose, Dipstick Normal (Normal); Ketone-Dipstick 5 mg/dl (Negative); Leukocyte Esterase-Dipstick 25 /ul (Negative); Nitrite-Dipstick Negative (Negative); Occult Blood-Urine 150 /ul (Negative); Protein-Dipstick 100 mg/dl (Negative); Specific Gravity, Urine 1.025 (1.002-1.030); Urine Clarity Sl. Cloudy (Clear); Urine Urobilinogen 1 mg/dl (Normal)
[2024-02-13 21:22] LABS: Urine Bilirubin Dipstick 1 mg/dL (Negative)
[2024-02-13 21:29] LABS: Bacteria 1+ /hpf (None Seen); Fine Granular Cast- Urine 0-5 SEEN /lpf (0-5); Mucous, Urine RARE /hpf (<or=2+); Red Blood Cells-Urine 0-5 SEEN /hpf (0-5); Squamous Epithelial Cells - UA 0-5 SEEN /hpf (0-5); White Blood Cells 5-10 SEEN /hpf (0-5)
[2024-02-13 21:30] LABS: Amorphous Sediment 1+
--- NOTE | 2024-02-13 22:30 | PCM.HP.STD ---
[facility] - General General Date of Admission: 02/13/24 Date of Service: 02/13/24 Chief Complaint: Fever, Runny Nose, Cough and SOB. HPI Narrative HOWIE LOVELACE, is a 68 M with a past medical history of essential hypertension, hyperlipidemia, MDS; s/p bone marrow transplant (2017) with no currently prescribed immune suppression agents, history of disseminated herpes zoster (2020), history of septicemia; secondary to E. coli, history of idiopathic pneumonia, history of VT, chronic insomnia; on Trazodone and OA; with history of knee surgery who presents to [facility] ER complaining of fever, runny nose, cough and SOB. Mr. Lovelace reports his symptoms began approximately three days prior to admission on Saturday, February 13, 2024 with a viral URI that initially caused him a runny nose and fatigue. He also admits to a small amount of nonbloody diarrhea along with cough productive of minimal sputum. In the ER he was noted to be febrile at 100.5 degrees Fahrenheit with tachypnea at ~26 bpm along with clinical evidence of Respiratory Insufficiency with patient started on 3L NC with CXR positive for bilateral ground-glass infiltrates consistent with suspected COVID-19 with Leukocytosis of 11.7K present on admission and incidentally noted moderate thrombocytopenia of 100K present on admission and UA positive for Acute Cystitis; without hematuria and he was then admitted to the general medical floor for ongoing care for a stay that is expected to extend beyond 2 midnights. [facility] Medical History Seizures Zapien's sign present Thrombocytopenia Disseminated herpes zoster V tach Pancytopenia Electrolyte abnormality CINV (chemotherapy-induced nausea and vomiting) H/O Escherichia coli septicemia Benign hypertension Epistaxis Bacteremia Arthralgia SANG (acute kidney injury) Idiopathic pneumonia syndrome Acute respiratory failure Hypercholesteremia Pulmonary infiltrate Anxiety SOB (shortness of breath) Debility MDS (myelodysplastic syndrome) Home Medications ?Medication ?Instructions ?Recorded ?Last Taken ?Type calcium citrate 200 mg (950 mg) 950 mg PO BID supplement 02/22/18 02/21/21 History tablet cholecalciferol (vitamin D3) 50 2,000 unit PO QHS supplement 02/22/18 02/21/21 History mcg (2,000 unit) capsule trazodone 50 mg tablet 50 mg PO QHS sleep 02/21/21 02/20/21 History Allergy/AdvReac Type Severity Reaction Status Date / Time Penicillins AdvReac Unknown Other Verified 02/13/24 19:27 Family History Father Emphysema lung Sister Cancer Surgical History History of tonsillectomy H/O knee surgery insertion cvc tunneled removal of cvc tunneled History of bronchoscopy S/P bone marrow transplant Social History household members: spouse Smoking Status: Never smoker ROS ROS Narrative Review of Systems: Constitutional: Patient admits to fever and chills as per HPI. Eyes: Patient denies changes in vision or discharge from eyes. ENT: Patient admits to runny nose but he denies sore throat or ear pain. Resp: Patient admits to SOB and minimally productive cough. CV: Patient denies chest pain, palpitations or heart racing. GI: Patient admits to a small amount of nonbloody diarrhea as per HPI. He denies abdominal pain. : Patient denies dysuria or hematuria. MSK: Patient admits to myalgias but he denies arthralgias. Skin: Patient denies rash, abscess or jaundice. Psych: Patient denies symptoms of uncontrolled depression or anxiety. Neuro: Patient denies headache, paresthesias or focal neurologic weakness. Allergy: Patient denies lip swelling, tongue swelling or urticaria. Hematology: Patient denies easy bleeding or easy bruisability. Endocrinology: Patient denies polyuria, polydipsia or polyphagia. 14 point ROS otherwise negative except for positives noted above in HPI. Vital Signs Vital Signs Vital Signs: 02/13/24 19:27 02/13/24 19:27 02/13/24 19:41 Temperature 98.8 F Temperature Source Oral Pulse Rate 135 H Respiratory Rate 28 H Respiratory Effort Short of Breath Respiratory Pattern Tachypnea Blood Pressure 127/109 H Blood Pressure Mean 115 Pulse Ox 82 91 Oxygen Delivery Method Room Air Nasal Cannula Nasal Cannula Oxygen Flow Rate (L/min) 5 5 02/13/24 20:03 02/13/24 20:20 02/13/24 20:20 Temperature 101.8 F H Temperature Source Oral Pulse Rate 117 H Respiratory Rate 20 H Respiratory Effort Respiratory Pattern Blood Pressure Blood Pressure Mean Pulse Ox 94 Oxygen Delivery Method Nasal Cannula Oxygen Flow Rate (L/min) 3 02/13/24 20:30 02/13/24 21:00 02/13/24 22:00 Temperature 100.5 F H 98.6 F 98.3 F Temperature Source Oral Oral Oral Pulse Rate 110 H 108 H 107 H Respiratory Rate 32 H 26 H 25 H Respiratory Effort Respiratory Pattern Blood Pressure 113/76 113/76 114/63 Blood Pressure Mean 88 88 80 Pulse Ox 96 95 94 Oxygen Delivery Method Nasal Cannula Nasal Cannula Nasal Cannula Oxygen Flow Rate (L/min) 3 5 5 02/13/24 22:07 Temperature Temperature Source Pulse Rate 94 Respiratory Rate 20 H Respiratory Effort Respiratory Pattern Blood Pressure 103/64 Blood Pressure Mean 77 Pulse Ox 96 Oxygen Delivery Method Room Air Oxygen Flow Rate (L/min) Weight Weight: 208 lb Body Mass Index (BMI) 26.6 Physical Exam Const alert, oriented x3, no apparent distress and average body habitus General Appearance: cooperative HEENT normocephalic, head/scalp atraumatic, hearing grossly normal bilaterally and moist oral mucous membranes Eyes PERRL and EOMs intact bilaterally Neck no lymphadenopathy and supple Resp normal respiratory effort, no retractions and no use of accessory muscles Resp Narrative: Diminished breath sounds throughout. Cardio regular rate and regular rhythm GI normal to inspection, nondistended, normoactive bowel sounds, soft to palpation, non-tender and non-distended Extremity normal to inspection and full ROM Skin Skin Narrative: Patient has no evidence of rash, abscess, wound or jaundice. Neuro oriented x3, CN's II-XII intact bilaterally, moves all extremities and no focal motor deficits Sensorium / Orientation: awake, alert, oriented to person, oriented to place and oriented to time Speech: speech normal Psych affect normal Results Medical Records Data Attestation: I reviewed the patient's medical records Lab / Micro Data Attestation: I reviewed the patient's lab results. Lab results narrative: RUN DATE: 02/14/24 [facility], DEPARTMENT OF LABORATORIES PAGE 1 RUN TIME: 705 [employer] [id number] [place], [address] PATIENT: HOWIE LOVELACE Agnieszka LOC: MS3 U #: [id number] : 1955 AGE/SX: 68/M FACILITY: [facility] ROOM: [facility] RE02/13/[address]: Dr. Emmanuel Hankins, DO STATUS:ADM IN ED: 1 DIS: ~ SPEC #: [id number] __ PHYLLIS: 02/14/24-0132 STATUS: COMP REQ #: [id number] SOURCE: Mucosa RECD: 02/14/24-[address]: Dr. Francis Do, DO SPSESC: CASE INVESTIGATOR ENTR: 02/14/24-[address]: MD Dr. Juan Mc, DO ~ ORDERED: RP PANEL COMMENTS: Copy of report sent to Infection Control Printer [id number] 02/14/24 0641 IDRIS. Procedure Result Verified RESPIRATORY PANEL MOLECULAR Final 02/14/24 ADENOVIRUS Not Detected HUMAN METAPHNEUMO Not Detected INFLUENZA A Not Detected INFLUENZA A (SUBTYPE H1) Not Detected INFLUENZA A (SUBTYPE H3) Not Detected INFLUENZA B Not Detected PARAINFLUENZA 1 Not Detected PARAINFLUENZA 2 Not Detected PARAINFLUENZA 3 Not Detected PARAINFLUENZA 4 Not Detected RHINOVIRUS Positive for RHINOVIRUS by NAAT technology RSV A Not Detected RSV B Not Detected Organism 1 RHINOVIRUS Normal Reference Range = Not Detected Nucleic acid amplification test method 02/14/24 05:55 02/13/24 20:20 Labs: Laboratory Results - last 24 hr 02/13/24 20:20: WBC 11.7 H, RBC 4.10 L, Hgb 13.5, Hct 38.7 L, MCV 94.4 H, MCH 32.9 H, MCHC 34.9, RDW Std Deviation 49.2 H, RDW Coeff of Kaitlyn 14.3, Plt Count 100 L, MPV 9.6, Immature Gran % (Auto) 0.600, Neut % (Auto) 49.0, Lymph % (Auto) 42.6 H, [place] % (Auto) 5.7, Eos % (Auto) 1.8, Baso % (Auto) 0.3, Absolute Neuts (auto) 5.7, Absolute Lymphs (auto) 4.97 H, Nucleated RBC % 0, PT 17.7 H, INR 1.5, APTT 32.5, Sodium 133 L, Potassium 4.1, Chloride 103, Carbon Dioxide 23.0, Anion Gap 7, BUN 28 H, Creatinine 1.31 H, Estim Creat Clear Calc 63.62, Est GFR (MDRD) Af Amer 70, Est GFR (MDRD) Non-Af 58 L, BUN/Creatinine Ratio 21.4 H, Glucose 207 H, Lactic Acid 1.3, Calcium 9.0, Total Bilirubin 1.40 H, AST 26, ALT 21, Alkaline Phosphatase 146 H, Troponin I High Sens 24, Total Protein 7.2, Albumin 3.2, Globulin 4.0, Albumin/Globulin Ratio 0.8 L 02/13/24 21:02: Urine Color Yellow, Urine Clarity Sl. Cloudy, Urine pH 5.0, Ur Specific [place] 1.025, Urine Protein 100 H, Urine Glucose (UA) Normal, Urine Ketones 5 H, Urine Occult Blood 150 H, Urine Nitrite Negative, Urine Bilirubin 1 H, Urine Urobilinogen 1 H, Ur Leukocyte Esterase 25 H, Urine RBC 0-5 SEEN, Urine WBC 5-10 SEEN, Ur Squamous Epith Cells 0-5 SEEN, Amorphous Sediment 1+, Urine Bacteria 1+, Fine Granular Casts 0-5 SEEN, Urine Mucus RARE Micro: Microbiology 02/13/24 20:44 Mucosa - Nose SARS-CoV-2, Influenza & RSV (PCR) - Final Imaging Radiology Impression Chest X-Ray 02/13/24 20:30 IMPRESSION: Chronic interstitial changes with probable superimposed acute pneumonia. Electronically Signed: Pete Menendez MD at 20:50 EDT Reading Location ID and State: [facility] / [place] Tel [phone], Service support , Chest CTA 02/13/24 21:11 IMPRESSION: Probable chronic interstitial and emphysematous changes with superimposed viral pneumonia. No evidence for pulmonary embolus Electronically Signed: Pete Menendez MD at 22:07 EDT , Assessment & Plan Assessment/Plan (1) Rhinovirus: (2) Community acquired pneumonia: QUALIFIERS: Laterality: right Lung location: lower lobe of lung Qualified Code(s): J18.1 - Lobar pneumonia, unspecified organism (3) Respiratory insufficiency: (4) Acute cystitis without hematuria: (5) S/P allogeneic bone marrow transplant: (6) MDS (myelodysplastic syndrome): (7) Thrombocytopenia: PLAN: Plan 1. Rhinovirus with Leukocytosis of 11.7K present on admission and CXR positive for bilateral infiltrates with patient febrile at 100.5 degrees Fahrenheit with tachypnea at ~26 bpm - Admit to general medical floor under contact and droplet precautions. Continue empiric antibiotics with IV Rocephin and IV Azithromycin and await culture and sensitivity data. Check urinary antigens for Streptococcus Pneumonia and Legionella. We will give vitamin D3, vitamin C and Zinc to help boost immunity and speed recovery. Give Tylenol prn pain or fever. 2. Acute Respiratory Insufficiency attributable to #1 - Wean supplemental oxygen as tolerated. 3. UA positive for Acute Cystitis; without hematuria complicating #1 & #2 - Patient on IV Rocephin for #1. Await culture and sensitivity data. 4. MDS; s/p bone marrow transplant (2018) with no currently prescribed immune suppression agents adding to the medical complexity of #1 - #3 - Noted. 5. Moderate thrombocytopenia of 100K present on admission - Noted. Check daily CBC to ensure continued stability. 6. Essential hypertension - Continue home regimen as previous. 7. Hyperlipidemia - Resume statin. 8. History of disseminated herpes zoster (2020) - Noted. 9. History of septicemia; secondary to E. coli - Noted. 10. History of idiopathic pneumonia - Noted. 11. History of VT - Noted. 12. Chronic insomnia; on Trazodone - Resume Trazodone as before. 13. OA; with history of knee surgery - Give Tylenol prn. 14. DVT prophylaxis - Lovenox 40 mg sq daily plus SCD's. Check daily CBC to follow platelet count and stop Lovenox if platelet count falls. Total time: Approximately 75 minutes. Charges/Coding Visit Charges Inpatient E&M: 29136 Init Hosp L3
[2024-02-13] MEDS: Ceftriaxone 1 GM/50 ML BAG IV (23:05)
[2024-02-13] MEDS: dexAMETHasone 4 MG Tablet 6 MG PO (23:07)
[2024-02-14] VITALS (9 sets, daily range): BP systolic 100–118; BP diastolic 62–72; PULSE 74–92; RESP 20; TEMP 36.4–36.9; O2SAT 88–97; BMI 26.6
[2024-02-14] MEDS: 0.9% Normal Saline (1000mL) 1,000 ML 70 ML IV (00:02)
[2024-02-14] MEDS: Azithromycin 500 MG in Dextrose 5%-Water (250mL Bag) 250 ML 250 MG IV (00:02)
[2024-02-14] MEDS: traZODone 50 MG Tablet PO (00:02)
[2024-02-14 06:14] LABS: Absolute Lymphocyte Count 2.98 X10^3/uL (0.83-4.51); Absolute Neutrophil Count 4.5 X10^3/uL (2.0-7.7); Basophil# 0.04 X10^3/uL; Basophil% 0.5 % (0-1); Hematocrit 36.6 % (40-54); Hemoglobin 12.5 g/dL (13.0-16.5); Lymphocyte # 2.98 X10^3/ul (0.83-4.51); Lymphocyte % 38.1 % (19-41); Mean Corp Hgb Conc 34.2 g/dL (32-36); Mean Corpuscular Hgb 32.9 pg (27.0-32.0); Mean Corpuscular Volume 96.3 fL (80-94); Mean Platelet Vol. 9.7 fl (6.2-12.0); Monocyte% 3.8 % (0-10); NRBC Flagged by Analyzer 0 % (0-5); Neutrophil # 4.45 X10^3/uL (2.7-7.7); Neutrophil % 56.8 % (47-70); POSITIVE COUNT YES; Platelet Count 85 K/mm3 (150-450); RBC Distribution Width CV 14.4 % (11.6-14.6); RBC Distribution Width SD 50.3 fl (35.1-43.9); White Blood Count 7.8 K/mm3 (4.4-11.0)
[2024-02-14 07:17] LABS: ALB/GLOB Ratio 0.8 RATIO (0.9-2.4); AST(SGOT) 24 U/L (15-37); Alanine Aminotransfer ALT/SGPT 20 U/L (16-61); Albumin, Serum 2.8 g/dL (3.2-5.0); Alkaline Phosphatase 123 U/L (45-117); Anion Gap 5 (5-15); BUN 22 mg/dL (7-18); BUN/Creat Ratio 22.4 RATIO (10-20); Calcium,Total 8.7 mg/dL (8.5-10.1); Chloride 107 mmol/L (98-107); Creatinine, Serum 0.98 mg/dL (0.70-1.30); EST Glomerular Filtration Rate 81 mL/min (>60); Est Glom Filt Rate - Afr Amer 98 mL/min (>60); Estimated Creatinine Clearance 85.04 ml/min; Globulin 3.7 g/dL (2.2-4.2); Glucose 182 mg/dL (74-106); Magnesium 1.9 mg/dL (1.6-2.6); Phosphorus 2.6 mg/dL (2.5-4.9); Potassium 4.3 mmol/L (3.5-5.1); Protein, Total 6.5 g/dL (6.4-8.2); Sodium Level 135 mmol/L (136-145)
--- NOTE | 2024-02-14 07:48 | PN.HOSP_ITS ---
Reason for Visit Reason for Visit: Diagnoses Other viral infections of unspecified site (02/13/24) Myelodysplastic syndrome, unspecified (02/13/24) Thrombocytopenia, unspecified (02/13/24) Lobar pneumonia, unspecified organism (02/13/24) Acute cystitis without hematuria (02/13/24) Other abnormalities of breathing (02/13/24) Bone marrow transplant status (02/13/24) Subjective Subjective Feels better overall. Anxious to go home. Objective Data Objective Data Vital Signs: Vital Signs Temp Pulse Resp BP Pulse Ox O2 Del Method O2 Flow Rate 36.4 C L 78 20 H 109/66 97 Nasal Cannula 3 02/14/24 02:34 02/14/24 03:17 02/14/24 02:34 02/14/24 02:34 02/14/24 02:34 02/14/24 02:46 02/14/24 02:46 Oxygen Flow Rate (L/min) 3 Oxygen Delivery Method Nasal Cannula Weight: 94.347 kg Body Mass Index (BMI) 26.6 Intake & Output: Intake and Output for Last 24 Hours 02/12/24 02/13/24 02/14/24 23:59 23:59 23:59 Intake Total 1000 / 1000 660.83 / 660.83 Balance 1000 / 1000 660.83 / 660.83 Lab / Micro Data 02/14/24 05:55 02/14/24 05:55 Labs: Laboratory Results - last 24 hr 02/13/24 20:20: WBC 11.7 H, RBC 4.10 L, Hgb 13.5, Hct 38.7 L, MCV 94.4 H, MCH 32.9 H, MCHC 34.9, RDW Std Deviation 49.2 H, RDW Coeff of Kaitlyn 14.3, Plt Count 100 L, MPV 9.6, Immature Gran % (Auto) 0.600, Neut % (Auto) 49.0, Lymph % (Auto) 42.6 H, [place] % (Auto) 5.7, Eos % (Auto) 1.8, Baso % (Auto) 0.3, Absolute Neuts (auto) 5.7, Absolute Lymphs (auto) 4.97 H, Nucleated RBC % 0, PT 17.7 H, INR 1.5, APTT 32.5, Sodium 133 L, Potassium 4.1, Chloride 103, Carbon Dioxide 23.0, Anion Gap 7, BUN 28 H, Creatinine 1.31 H, Estim Creat Clear Calc 63.62, Est GFR (MDRD) Af Amer 70, Est GFR (MDRD) Non-Af 58 L, BUN/Creatinine Ratio 21.4 H, G lucose 207 H, Lactic Acid 1.3, Calcium 9.0, Total Bilirubin 1.40 H, AST 26, ALT 21, Alkaline Phosphatase 146 H, Troponin I High Sens 24, Total Protein 7.2, Albumin 3.2, Globulin 4.0, Albumin/Globulin Ratio 0.8 L 02/13/24 21:02: Urine Color Yellow, Urine Clarity Sl. Cloudy, Urine pH 5.0, Ur Specific [place] 1.025, Urine Protein 100 H, Urine Glucose (UA) Normal, Urine Ketones 5 H, Urine Occult Blood 150 H, Urine Nitrite Negative, Urine Bilirubin 1 H, Urine Urobilinogen 1 H, Ur Leukocyte Esterase 25 H, Urine RBC 0-5 SEEN, Urine WBC 5-10 SEEN, Ur Squamous Epith Cells 0-5 SEEN, Amorphous Sediment 1+, Urine Bacteria 1+, Fine Granular Casts 0-5 SEEN, Urine Mucus RARE 02/14/24 05:55: WBC 7.8, RBC 3.80 L, Hgb 12.5 L, Hct 36.6 L, MCV 96.3 H, MCH 32.9 H, MCHC 34.2, RDW Std Deviation 50.3 H, RDW Coeff of Kaitlyn 14.4, Plt Count 85 L, MPV 9.7, Immature Gran % (Auto) 0.800, Neut % (Auto) 56.8, Lymph % (Auto) 38.1, [place] % (Auto) 3.8, Eos % (Auto) 0.0, Baso % (Auto) 0.5, Absolute Neuts (auto) 4.5, Absolute Lymphs (auto) 2.98, Nucleated RBC % 0, Sodium 135 L, Potassium 4.3, Chloride 107, Carbon Dioxide 23.0, Anion Gap 5, BUN 22 H, Creatinine 0.98, Estim Creat Clear Calc 85.04, Est GFR (MDRD) Af Amer 98, Est GFR (MDRD) Non-Af 81, BUN/Creatinine Ratio 22.4 H, Glucose 182 H, Calcium 8.7, Phosphorus 2.6, Magnesium 1.9, Total Bilirubin 1.30 H, AST 24, ALT 20, Alkaline Phosphatase 123 H, Total Protein 6.5, Albumin 2.8 L, Globulin 3.7, A lbumin/Globulin Ratio 0.8 L, TSH 1.400 Micro: Microbiology 02/14/24 01:32 Mucosa - Nasopharyngeal Respiratory Panel (PCR) - Final Rhinovirus 02/13/24 20:44 Mucosa - Nose SARS-CoV-2, Influenza & RSV (PCR) - Final Radiography Diagnostic Testing: Radiology Impression Chest X-Ray 02/13/24 20:30 IMPRESSION: Chronic interstitial changes with probable superimposed acute pneumonia. Electronically Signed: Pete Menendez MD at 20:50 EDT , Chest CTA 02/13/24 21:11 IMPRESSION: Probable chronic interstitial and emphysematous changes with superimposed viral pneumonia. No evidence for pulmonary embolus Electronically Signed: Pete Menendez MD at 22:07 EDT , Physical Exam Const alert and no apparent distress Constitutional Narrative: Was needed in the hallways and his pulse ox dropped down to 88% on room air and did require 1 L to maintain his sats above that. HEENT head/scalp atraumatic and moist oral mucous membranes Resp normal respiratory effort, no retractions, no use of accessory muscles and clear to auscultation bilaterally Cardio regular rate, regular rhythm, S1 normal heart sound and S2 normal heart sound Assessment & Plan Assessment/Plan (1) Rhinovirus: (2) Community acquired pneumonia: QUALIFIERS: Laterality: right Lung location: lower lobe of lung Qualified Code(s): J18.1 - Lobar pneumonia, unspecified organism (3) Respiratory insufficiency: (4) Acute cystitis without hematuria: (5) S/P allogeneic bone marrow transplant: (6) MDS (myelodysplastic syndrome): (7) Thrombocytopenia: PLAN: Plan AECOPD * 2/2 acute rhinovirus * Reviewed CAT scan, no definitive infiltrate but chronic scarring, COPD changes and viral interstitial pattern. * Patient overall feeling well. Did advise the patient to have oxygen with activity, he declines. He said he feels fine. This may be his baseline. Patient has chronic lung disease that looks like scarring and emphysema changes. Patient is a non-smoker but does have extensive secondhand smoke exposure. He does not have any occupational work exposure that he is aware of though he did have [id number] disease after getting a bone marrow transplant that seem to have hastened his breathing difficulties. As above, I did recommend oxygen though he declines though he does understand the need for that. I did recommend that he do follow-up with pulmonary for routine follow- up and see if there is any management from maintenance treatment. He said that he will consider following up. * I will discharge him with prednisone and levofloxacin. Abnormal UA: * does not look infected. DC abx and observe. Chronic conditions: * MDS; s/p bone marrow transplant (2018) * Chronic thrombocytopenia: monitor * Chronic insomnia; on Trazodone VTE prophylaxis: LMWH
[2024-02-14] MEDS: Zinc Sulfate 50 mg zinc (220 mg) ORAL capsule PO (11:00)
[2024-02-14] MEDS: Ascorbic Acid 500 MG Tablet 1000 MG PO (11:00)
[2024-02-14] MEDS: Lactobacillis Acidophilus 1 CAP PO (11:00)
[2024-02-14] MEDS: Ensure Plus High Protein 120 ML LIQUID PO (11:01)
--- NOTE | 2024-02-14 12:50 | NURSING ---
Addendum entered by Ninoska Davis 02/14/24 13:13: While ambulating w/ oxygen 90% destat to 89% 1 L increased to 4L 92% while walking the entire unit. Recovered without oxygen sitting at the bedside 92% room air. Original Note: Patient on room air 88%, ambulating w/ oxygen 89% 1 L, ambulating w/ 92% 4L. Recovered with oxygen sitting at the bedside 92% room air
--- NOTE | 2024-02-14 14:31 | DS.PCM_ITS ---
Providers Date of Admission: 02/13/24 Primary Care Physician: Dr. Rodrigo Bullard MD Reason For Visit: COVID PNEUMONIA WITH RESPIRATORY INSUFFICIENCY Diagnosis Discharge Diagnosis (1) Rhinovirus: Status: Resolved Code(s): B34.8 - Other viral infections of unspecified site (2) Community acquired pneumonia: Status: Acute Code(s): J18.9 - Pneumonia, unspecified organism Qualifiers: Laterality: right Lung location: lower lobe of lung Qualified Code(s): J18.1 - Lobar pneumonia, unspecified organism (3) Respiratory insufficiency: Status: Acute Code(s): R06.89 - Other abnormalities of breathing (4) Acute cystitis without hematuria: Status: Acute Code(s): N30.00 - Acute cystitis without hematuria (5) S/P allogeneic bone marrow transplant: Status: Chronic Code(s): Z94.81 - Bone marrow transplant status (6) MDS (myelodysplastic syndrome): Status: Chronic Code(s): D46.9 - Myelodysplastic syndrome, unspecified (7) Thrombocytopenia: Status: Acute Code(s): D69.6 - Thrombocytopenia, unspecified Plan AECOPD * 2/2 acute rhinovirus * Reviewed CAT scan, no definitive infiltrate but chronic scarring, COPD changes and viral interstitial pattern. * Patient overall feeling well. Did advise the patient to have oxygen with activity, he declines. He said he feels fine. This may be his baseline. Patient has chronic lung disease that looks like scarring and emphysema changes. Patient is a non-smoker but does have extensive secondhand smoke exposure. He does not have any occupational work exposure that he is aware of though he did have cetky-djpvtl-ymod disease after getting a bone marrow transplant that seem to have hastened his breathing difficulties. As above, I did recommend oxygen though he declines though he does understand the need for that. I did recommend that he do follow-up with pulmonary for routine follow- up and see if there is any management from maintenance treatment. He said that he will consider following up. * I will discharge him with prednisone and levofloxacin. Abnormal UA: * does not look infected. DC abx and observe. Chronic conditions: * MDS; s/p bone marrow transplant (2018) * Chronic thrombocytopenia: monitor * Chronic insomnia; on Trazodone VTE prophylaxis: LMWH Medications at Discharge Home Medications calcium citrate 200 mg (950 mg) tablet 950 mg PO BID supplement 02/22/18 cholecalciferol (vitamin D3) 50 mcg (2,000 unit) capsule 2,000 unit PO QHS supplement 02/22/18 trazodone 50 mg tablet 50 mg PO QHS sleep 02/21/21 levofloxacin 750 mg tablet 750 mg PO DAILY #5 tabs 02/14/24 prednisone 20 mg tablet 40 mg (2 x 20 mg) PO DAILY #10 tabs 02/14/24 Hospital Course Operations None Summary of Care Provided Minutes Spent on Discharge: 40 Hospital Course: Patient presents with shortness of breath. Patient was found to have rhinovirus. Questionable infiltrate and was started on antibiotics. Patient had more chronic changes with scarring and viral pattern. Patient has a history of wesqm-hmkwya-prir disease that may have caused some pulmonary scarring also some emphysematous changes and that that may be related with prior secondhand smoke exposure (patient is a lifelong non-smoker). Patient is overall feeling well. We did ambulate him in the hallways which she dropped down to 88% on room air and did well with oxygen. I did advise oxygen for him, however, he declined that saying that he felt fine. Nursing did note that he had no symptoms with his pulse ox of 88% so this may be more of a chronic process. I did recommend that he follow-up with pulmonary. Patient did see Dr. Puri in 2019 but did not follow-up. I did recommend patient stay longer in the hospital but he would prefer to be discharged today as he is feeling much better. Weight / BMI Weight Weight: 94.347 kg Body Mass Index (BMI) 26.6 ABG / Lab / Microbiology Data 02/14/24 05:55 02/14/24 05:55 Laboratory: Laboratory Results - last 24 hr 02/13/24 20:20: WBC 11.7 H, RBC 4.10 L, Hgb 13.5, Hct 38.7 L, MCV 94.4 H, MCH 32.9 H, MCHC 34.9, RDW Std Deviation 49.2 H, RDW Coeff of Kaitlyn 14.3, Plt Count 100 L, MPV 9.6, Immature Gran % (Auto) 0.600, Neut % (Auto) 49.0, Lymph % (Auto) 42.6 H, Creek % (Auto) 5.7, Eos % (Auto) 1.8, Baso % (Auto) 0.3, Absolute Neuts (auto) 5.7, Absolute Lymphs (auto) 4.97 H, Nucleated RBC % 0, PT 17.7 H, INR 1.5, APTT 32.5, Sodium 133 L, Potassium 4.1, Chloride 103, Carbon Dioxide 23.0, Anion Gap 7, BUN 28 H, Creatinine 1.31 H, Estim Creat Clear Calc 63.62, Est GFR (MDRD) Af Amer 70, Est GFR (MDRD) Non-Af 58 L, BUN/Creatinine Ratio 21.4 H, G lucose 207 H, Lactic Acid 1.3, Calcium 9.0, Total Bilirubin 1.40 H, AST 26, ALT 21, Alkaline Phosphatase 146 H, Troponin I High Sens 24, Total Protein 7.2, Albumin 3.2, Globulin 4.0, Albumin/Globulin Ratio 0.8 L 02/13/24 21:02: Urine Color Yellow, Urine Clarity Sl. Cloudy, Urine pH 5.0, Ur Specific [place] 1.025, Urine Protein 100 H, Urine Glucose (UA) Normal, Urine Ketones 5 H, Urine Occult Blood 150 H, Urine Nitrite Negative, Urine Bilirubin 1 H, Urine Urobilinogen 1 H, Ur Leukocyte Esterase 25 H, Urine RBC 0-5 SEEN, Urine WBC 5-10 SEEN, Ur Squamous Epith Cells 0-5 SEEN, Amorphous Sediment 1+, Urine Bacteria 1+, Fine Granular Casts 0-5 SEEN, Urine Mucus RARE 02/14/24 05:55: WBC 7.8, RBC 3.80 L, Hgb 12.5 L, Hct 36.6 L, MCV 96.3 H, MCH 32.9 H, MCHC 34.2, RDW Std Deviation 50.3 H, RDW Coeff of Kaitlyn 14.4, Plt Count 85 L, MPV 9.7, Immature Gran % (Auto) 0.800, Neut % (Auto) 56.8, Lymph % (Auto) 38.1, Creek % (Auto) 3.8, Eos % (Auto) 0.0, Baso % (Auto) 0.5, Absolute Neuts (auto) 4.5, Absolute Lymphs (auto) 2.98, Nucleated RBC % 0, Sodium 135 L, Potassium 4.3, Chloride 107, Carbon Dioxide 23.0, Anion Gap 5, BUN 22 H, Creatinine 0.98, Estim Creat Clear Calc 85.04, Est GFR (MDRD) Af Amer 98, Est GFR (MDRD) Non-Af 81, BUN/Creatinine Ratio 22.4 H, Glucose 182 H, Calcium 8.7, Phosphorus 2.6, Magnesium 1.9, Total Bilirubin 1.30 H, AST 24, ALT 20, Alkaline Phosphatase 123 H, Total Protein 6.5, Albumin 2.8 L, Globulin 3.7, A lbumin/Globulin Ratio 0.8 L, TSH 1.400 Microbiology: Microbiology 02/13/24 21:02 Urine, Clean Catch Urine Culture - Preliminary Culture exhibits no growth. 02/14/24 01:32 Mucosa - Nasopharyngeal Respiratory Panel (PCR) - Final Rhinovirus 02/13/24 20:44 Mucosa - Nose SARS-CoV-2, Influenza & RSV (PCR) - Final Radiography Diagnostic Testing: Radiology Impression Chest X-Ray 02/13/24 20:30 IMPRESSION: Chronic interstitial changes with probable superimposed acute pneumonia. Electronically Signed: Pete Menendez MD at 20:50 EDT Reading Location ID and State: [facility] [place] / [place] Tel [phone], Service support , Chest CTA 02/13/24 21:11 IMPRESSION: Probable chronic interstitial and emphysematous changes with superimposed viral pneumonia. No evidence for pulmonary embolus Electronically Signed: Pete Menendez MD at 22:07 EDT , D/C Instructions Discharge Diet: No restrictions Meaningful Use Info Meaningful Use Meaningful Use Diagnoses (Choose all that apply): None applicable Ischemic Stroke Statin Dosing Therapy Reference: STATIN DOSE THERAPY REFERENCE: * Patients > 75 years receive moderate or high dose statin therapy. * Patients 75 years or YOUNGER should receive HIGH intensity statin dose unless contraindicated. You will be required to document reason for non-treatment if statin daily dose does not meet guidelines. HIGH DOSE STATIN THERAPY DAILY Atorvastatin > than or = to 40 mg Rosuvastatin > than or = to 20 mg Amlodipine + Atorvastatin > than or = to 2.5/40 mg Ezetimibe + Simvastatin 10/80 mg Simvastatin 80mg Discharge Plan Admission Admit Date/Time: 02/13/24 23:08 Primary Reason for Your Visit: COPD exacerbation Attending Provider: Emmanuel Hankins Primary Care Provider: Rodrigo Bullard Consulting Providers: Francis Do Instructions Additional Instructions / Restrictions: You have a flareup of your COPD and pulmonary fibrosis due to rhinovirus. Cannot rule out bacterial pneumonia so you will be on antibiotics for that as well as prednisone to help minimize inflammation from your COPD. Do recommend that you do follow-up with pulmonary just for routine management of your lung disease see if any additional testing would be necessary. Discharge Orders/Prescriptions Prescriptions: New prednisone 20 mg tablet 40 mg PO DAILY Qty: 10 0RF levofloxacin 750 mg tablet 750 mg PO DAILY Qty: 5 0RF Continued calcium citrate 200 MG tablet 950 mg PO BID cholecalciferol (vitamin D3) 2,000 UNIT capsule 2,000 unit PO QHS trazodone 50 mg tablet 50 mg PO QHS Referrals / Follow Up: Pulmonary Medicine [facility] [Provider Group] - Within 1 Month Rodrigo Bullard MD [Primary Care Provider] - Within 2 Weeks Disposition Disposition (needs filled in before D/C Order can be placed): Home, Self Care Charges/Coding Visit Charges Inpatient E&M: 71276 Disch Hosp >30min
--- NOTE | 2024-02-14 14:58 | CASEMGMT ---
SUSY RITTER Assessment: Face to Face with pt for initial transition planning/care coordination assessment. SUSY RITTER introduced self and role at [facility], pt voices understanding and consents to assessment. Pt is A&O x4 and answers all questions appropriately at this time. Pt sitting up in bed in no distress. Care providers, pharmacy, and demographics verified/updated. Strata: 2 Admitting Dx: COVID pnueomonia with resp insufficiency. PCP: [facility] Specialists: Denies hx of. Preferred Pharmacy: [facility] Insurance: [employer] Prescription Benefit: yes LNOK: Living Arrangements: Pt lives with in a 1 story home with 2 steps to enter. ADLs: Pt states I with ADLs and IADls. Transportation: Pt drives self and denies concerns with transportation. DME: pulse ox. HHC/SNF: Denies Hx of. Pt states no concerns with going home at time of dc. Discussed oxygen needs, pt denies wanting home O2 ordered. Notified hospitalist patient declining home O2. Pt states no further concerns/needs. CM to follow. Advised pt to ask CM if any further question/concerns/needs arise, voices understanding. Pt Goal: Home Plan: Home with family support. Miguel JAIN CM
== END 2024-02-14 16:44 | disposition home or self-care (01) | DRG 190 ==
LOC: ED 20:35 → MS3 23:14
PROVIDERS: Admitting Provider Internal Medicine; Emergency Provider Emergency Medicine; PCP Family Medicine; Referring Provider Emergency Medicine
DX: J44.1 Chronic obstructive pulmonary disease with (acute) exacerbation (principal); J15.9 Unspecified bacterial pneumonia; Z94.81 Bone marrow transplant status; D69.6 Thrombocytopenia, unspecified; D46.9 Myelodysplastic syndrome, unspecified; J44.0 Chronic obstructive pulmonary disease with (acute) lower respiratory infection; J84.10 Pulmonary fibrosis, unspecified; B97.89 Other viral agents as the cause of diseases classified elsewhere; G47.00 Insomnia, unspecified; R82.90 Unspecified abnormal findings in urine; Z77.22 Contact with and (suspected) exposure to environmental tobacco smoke (acute) (chronic); Z79.899 Other long term (current) drug therapy
CPT/HCPCS: 36415; 71045; 71275; 80053; 81001; 83605; 83735; 84100; 84443; 84484; 85025; 85610; 85730; 87040; 87086; 87631; 87633; 93005; 94640; 97802; 99284; J7030; Q9967; A4216

== ENCOUNTER → 2024-06-12 | Outpatient (CLI) | payer OTHER, SELFPAY ==
--- NOTE | 2024-06-12 08:01 | ECHOD_ITS ---
Reason For Study: MURMUR Procedure This was a 2D Doppler, Color Flow transthoracic echocardiogram. Exam performed in department. Left Ventricle Normal LV size. The estimated ejection fraction is 60 %. No evidence for diastolic dysfunction. No regional wall motion abnormalities noted. Right Ventricle Normal RV size. Normal systolic function. Atria The left and right atria are normal. No doppler evidence for ASD. Mitral Valve There is no mitral valve stenosis. No mitral valve insufficiency. Tricuspid Valve There is no tricuspid stenosis. Trivial tricuspid valve insufficiency. Unable to estimate RV systolic pressure due to insufficient tricuspid regurgitant envelope. Aortic Valve Trisinus/trileaflet aortic valve. There is no aortic stenosis. No aortic valve insufficiency. Pulmonic Valve There is no pulmonic valvular stenosis. No pulmonic valve insufficiency. Great Vessels Normal aortic root. Pericardium/Pleural No pericardial effusion. MMode/2D Measurements & Calculations LVIDd: 5.2 cm IVSd: 0.92 cm Ao root diam: 3.4 cm LVIDs: 3.4 cm LVPWd: 0.95 cm RVDd: 4.1 cm FS: 34.1 % LAV(MOD-bp): 60.3 ml LVAd ap4: 30.6 cm2 SV(MOD-sp4): 54.9 ml LAV(MOD-bp) Indexed: 27.2 ml/m2 LVLd ap4: 8.0 cm SI(MOD-sp4): 24.7 ml/m2 LAV(MOD-sp2): 60.4 ml EDV(MOD-sp4): 97.8 ml LAV(MOD-sp4): 54.3 ml EDV(sp4-el): 99.6 ml LVAs ap4: 18.6 cm2 LVLs ap4: 6.8 cm ESV(MOD-sp4): 42.9 ml ESV(sp4-el): 43.4 ml EF(MOD-sp4): 56.1 % EF(sp4-el): 56.4 % SV(sp4-el): 56.2 ml LA A4 area: 20.0 cm2 LA dimension(2D): 3.6 cm RA A4 area: 17.6 cm2 TAPSE: 1.8 cm Time Measurements MV dec time: 0.26 sec Doppler Measurements & Calculations MV E max yohan: 55.9 cm/sec Lat Peak E' Yohan: 11.2 cm/sec Med Peak E' Yohan: 6.3 cm/sec MV A max yohan: 79.4 cm/sec E/E' lat: 5.0 E/E' med: 8.9 MV E/A: 0.70 Ao V2 max: 128.5 cm/sec LV V1 max: 97.0 cm/sec PA V2 max: 62.9 cm/sec Ao max P.6 mmHg LV V1 max P.8 mmHg TR max yohan: 312.7 cm/sec TR max P.1 mmHg ECHO/Echo Complete Interpretation Summary The estimated ejection fraction is 60 %. No evidence for diastolic dysfunction. Ordering Physician: Zaki Nava Referring Physician: MAMTA RICARDO Performed By: Aimee Maya RDCS
== END | disposition home or self-care (01) ==
LOC: CVS 08:01
PROVIDERS: PCP Family Medicine; Referring Provider Family Medicine; Visit Provider Family Medicine
DX: R01.1 Cardiac murmur, unspecified (principal)
CPT/HCPCS: 93306

== ENCOUNTER → 2024-10-13 | Outpatient (CLI) | payer MEDICARE, OTHER, SELFPAY ==
--- NOTE | 2024-10-13 12:45 | RAD_ITS ---
PROCEDURE: CHEST PA AND LATERAL 10/13/2024 REASON FOR EXAM: COUGH 8 day history of fever. TECHNIQUE: Frontal and lateral views of the chest. COMPARISON: None available. FINDINGS: Hardware: Heart: The heart size is normal. Mediastinum: The mediastinal contour is unremarkable. Lungs: There is elevation of the right hemidiaphragm. There is loss of volume in the right middle lobe with partial collapse. There are diffuse bilateral increased markings with areas of confluence suggestive of chronic interstitial fibrosis. No definite consolidation is seen Bones: The bones are unremarkable. RAD/Chest PA and Lateral IMPRESSION: Findings suggestive of chronic interstitial fibrosis with elevation of the righ t hemidiaphragm. Right middle lobe atelectasis and volume loss. Correlation with CT scan recomm ended. Reading Location: [place] [id number]
[2024-10-13 15:23] LABS: Absolute Lymphocyte Count 4.81 X10^3/uL (0.83-4.51); Absolute Neutrophil Count 6.1 X10^3/uL (2.0-7.7); Basophil# 0.04 X10^3/uL; Basophil% 0.3 % (0-1); Eosinophil# 0.01 X10^3/uL; Eosinophils% 0.1 % (0-5); Hematocrit 40.7 % (40-54); Hemoglobin 13.8 g/dL (13.0-16.5); Lymphocyte # 4.81 X10^3/ul (0.83-4.51); Mean Corp Hgb Conc 33.9 g/dL (32-36); Mean Corpuscular Hgb 32.5 pg (27.0-32.0); Mean Corpuscular Volume 95.8 fL (80-94); Mean Platelet Vol. 9.8 fl (6.2-12.0); Monocyte# 0.73 X10^3/uL; Monocyte% 6.2 % (0-10); NRBC Flagged by Analyzer 0 % (0-5); Neutrophil # 6.05 X10^3/uL (2.7-7.7); Neutrophil % 51.7 % (47-70); Platelet Count 198 K/mm3 (150-450); RBC Distribution Width CV 14.5 % (11.6-14.6); RBC Distribution Width SD 50.4 fl (35.1-43.9); Red Blood Count 4.25 M/mm3 (4.6-6.2); White Blood Count 11.7 K/mm3 (4.4-11.0)
[2024-10-13 15:29] LABS: Erythrocyte Sedimentation Rate 20 mm/hr (0-20)
[2024-10-13 16:08] LABS: ALB/GLOB Ratio 1.1 RATIO (0.9-2.4); AST(SGOT) 24 U/L (<=37); Alanine Aminotransfer ALT/SGPT 19 U/L (<=46); Albumin, Serum 3.9 g/dL (3.4-4.8); Alkaline Phosphatase 165 U/L (40-129); Anion Gap 11 (5-15); BUN 23 mg/dL (4-19); BUN/Creat Ratio 22.8 RATIO (10-20); Calcium,Total 9.6 mg/dL (7.6-11.0); Carbon Dioxide 25.1 mmol/L (21.0-32.0); Chloride 101 mmol/L (98-108); Cholesterol 152 mg/dL (<=200); Creatinine, Serum 1.02 mg/dL (0.70-1.20); EST Glomerular Filtration Rate 80 (>60); Globulin 3.7 g/dL (2.2-4.2); Glucose 141 mg/dL (70-99); High Density Lipoprotein 30 mg/dL; Low Density Lipoprotein Calc. 102 mg/dL; PSA,Total - Annual Screen 0.85 ng/mL (0.02-4.00); Potassium 4.4 mmol/L (3.3-5.1); Protein, Total 7.7 g/dL (5.9-8.4); Sodium Level 137 mmol/L (133-145); Thyroid Stim Hormone (TSH) 0.797 uIU/mL (0.300-4.200); Total Bilirubin 0.56 mg/dL (0.00-1.30); Triglycerides 99 mg/dL; Very Low Density Lipoprotein 20 mg/dL (5-40); cholesterol:hdl ratio screen 5.07
[2024-10-14 09:09] LABS: Troponin T High Sensitivity 12 ng/L (<=22)
== END | disposition home or self-care (01) ==
LOC: MTLAB 12:42
PROVIDERS: PCP Family Medicine; Referring Provider Family Medicine; Visit Provider Family Medicine
DX: R00.0 Tachycardia, unspecified (principal); D46.9 Myelodysplastic syndrome, unspecified; R05.9 Cough, unspecified; R53.83 Other fatigue; E78.00 Pure hypercholesterolemia, unspecified; Z12.5 Encounter for screening for malignant neoplasm of prostate
CPT/HCPCS: 36415; 71046; 80053; 80061; 83735; 84153; 84443; 84484; 85025; 85652; G0103